=== PATIENT | female | born 1970 | race Caucasian/White ===

== ENCOUNTER → 2016-09-28 | Day surgery (SDC) | payer BC ==
[2016-09-21 14:48] VITALS: Ht 157.5 cm; Wt 69.1 kg
[~2016-09-28] VITALS: Ht 157.5 cm; Wt 69.1 kg
[~2016-09-28] MED LIST: ATROPINE SULFATE 0.1 MG/ML 5ML SYR IV PRN; CALC500C70 PO; EpHEDrine SULFATE INJ 50 MG/ML AMP IV PRN; FLAX12003 PO; LIDOCAINE HCL 2% 2 ML VIAL (20MG/ML) ONE; MULT-506 PO; OMEG10007 PO; PANT40TA PO; PROPOFOL IV EMULSION 10 MG/ML 20 ML VIAL IV ONE; RANI150T3 PO; SENNTAB23 PO; SODIUM CHLORIDE 0.9% 500ML 500 ML IV ONE; [UNRECOGNIZED DRUG - OTHER] PO
--- NOTE | 2016-09-28 08:34 | Endo History and Physical ---
History & Physical Date of Service: Sep 28, 2016. Chief Complaint: Crohn's disease Referring Physician: Yuliya Dillard History of Present Illness 46 yo CF who presents for colonoscopy secondary to Crohn's Disease. Past Surgical History Hx Cardiac Surgery: No Hx Internal Defibrillator: No Hx Pacemaker: No Hx Abdominal Surgery: Yes (TOTAL HYSTERECTOMY 1 OVARY (11/2001); X 2, GB SURG) Hx Post-Op Nausea and Vomiting: Yes (+N/V WITH ANESTHESIA. DENIES ANY OTHER COMPLICATIONS WITH ANESTHESIA.) Hx Cancer Surgery: No Hx Thoracic Surgery: No Hx Orthopedic: No Hx Urinary Tract Surgery: No Family History IBD Social History Smoking Status: Never Smoker Hx Substance Use: No Hx Alcohol Use: No Allergies Coded Allergies: NO KNOWN DRUG ALLERGIES (Unverified Allergy, Unknown, NONE, 09/28/16) Current Medications Reported Home Medications Medications Dose Route/Sig Max Daily Dose Days Date Category [Amata] 1 Tab PO BID 09/21/16 Reported Multivitamin (Multivitamins) Tab 1 Tab PO QAM 09/21/16 Reported Stool Softener (Sennosides-Docusate Sodium) 1 Tab Tab 1 Tab PO HS 09/21/16 Reported Flaxseed Oil (Flaxseed (Linseed)) 1 Cap Cap 1 Tab PO BID 09/21/16 Reported Protonix (Pantoprazole Sodium) 40 Mg Tab 40 Mg PO QAM 09/21/16 Reported Os-Jose 500 Plus D (Calcium/Vitamin D) Tab 1 Tab PO QAM 12/15/12 Reported Zantac (Ranitidine HCl) 150 Mg Tab 150 Mg PO HS 12/15/12 Reported [place]-3 (Fish Oil) 1 Ea Cap 1 Cap PO BID 07/07/08 Reported Vital Signs Weight (Kilograms): 69.09 Height (Feet): 5 Height (Inches): 2 Date Time Temp Pulse Resp B/P (MAP) Pulse Ox O2 Delivery O2 Flow Rate FiO2 09/28/16 08:12 36.8 82 18 138/98 (111) 99 Room Air Physical Exam General Appearance: WD/WN, no apparent distress Respiratory/Chest: Auscultation: breath sounds normal Cardiovascular: Heart Auscultation: RRR Abdomen: Bowel Sounds: normal Inspection & Palpation: soft, non-distended, no tenderness, guarding & rebound Assessment and Plan Assessment: 46 yo CF who presents for colonoscopy secondary to Crohn's Disease. Plan: Proceed with colonoscopy.
--- NOTE | 2016-09-28 08:58 | Discharge Instructions ---
Endoscopy Patient Instructions Date / Procedure(s) Performed Sep 28, 2016. Colonoscopy Allergy Information Coded Allergies: NO KNOWN DRUG ALLERGIES (Unverified Allergy, Unknown, NONE, 09/28/16) Discharge Date / Findings Sep 28, 2016. Random colon biopsies Internal hemorrhoids Medication Instructions Stopped Medication(s): Fish oil stopped 09/17/16 Flaxseed stopped 09/17/16 OK to resume all medications today as prescribed Medications Dose Route/Sig Max Daily Dose Days Date Category [Amata] 1 Tab PO BID 09/21/16 Reported Multivitamin (Multivitamins) Tab 1 Tab PO QAM 09/21/16 Reported Stool Softener (Sennosides-Docusate Sodium) 1 Tab Tab 1 Tab PO HS 09/21/16 Reported Flaxseed Oil (Flaxseed (Linseed)) 1 Cap Cap 1 Tab PO BID 09/21/16 Reported Protonix (Pantoprazole Sodium) 40 Mg Tab 40 Mg PO QAM 09/21/16 Reported Os-Jose 500 Plus D (Calcium/Vitamin D) Tab 1 Tab PO QAM 12/15/12 Reported Zantac (Ranitidine HCl) 150 Mg Tab 150 Mg PO HS 12/15/12 Reported [place]-3 (Fish Oil) 1 Ea Cap 1 Cap PO BID 07/07/08 Reported Provider Instructions Activity Restrictions - No exercising or heavy lifting for 24 hours. - Do not drink alcohol the day of the procedure. - Do not drive a car or operate machinery until the day after the procedure. - Do not make any important decisions or sign important papers in 24 hours after the procedure. Following Day: - Return to full activity which may include returning to work/school. Diet Start your diet with liquids and light foods (jello, soup, juice, toast). Then eat your usual diet if not nauseated. Treatment For Common After Affects For mild abdominal pain, bloating, or excessive gas: - Rest - Eat lightly - Lie on right side Follow-Up Information Follow-up with Yuliya Dillard as scheduled Anesthesia Information What You Should Know You have had a procedure that required some medicine to reduce anxiety and discomfort. This treatment is called moderate sedation. After receiving the treatment, you may be sleepy, but you will be able to breathe on your own. The effects of the treatment may last for several hours. Follow these instructions along with Activity/Diet recommendations noted above: * Do NOT do anything where dizziness or clumsiness would be dangerous. * Rest quietly at home today, then you can be up and about tomorrow. * Have a responsible person stay with you the rest of today. * You may have had an I.V. today. If so, you may take the dressing off later today. Recommendations Call your doctor if: * Trouble breathing * Continuous vomiting for more than 24 hours * Temperature above 101 degrees * Severe abdominal pain or bloating * Pain not relieved by pain medicine ordered * There is increased drainage or redness from any incision * A large amount of rectal bleeding greater than 2-3 tablespoons. (If you had a polyp/s removed or have hemorrhoids, a small amount of blood - from the rectum is to be expected.) * You have any unanswered questions or concerns. IN THE EVENT OF A SERIOUS EMERGENCY, GO TO THE NEAREST EMERGENCY ROOM Your discharge instructions were prepared by provider Christian Meeks. Patient Instructions Signature Page Odalys Pryor Patient (or Guardian) Signature/Date: I have read and understand the instructions given to me by my caregivers. Caregiver/RN/Doctor Signature/Date: The above-named patient and/or guardian has received patient instructions on this date. + Original Patient Signature Page (only) stays with chart. Please make copy for patient.
--- NOTE | 2016-09-28 09:12 | Anesthesiology Progress Note ---
Anesthesia Post Op Note Date & Time Sep 28, 2016 at 09:12 Vital Signs Pain Intensity: 0 Vital Signs Past 12 Hours Date Time Temp Pulse Resp B/P (MAP) Pulse Ox O2 Delivery O2 Flow Rate FiO2 09/28/16 08:56 91 18 99/64 (76) 100 Room Air 09/28/16 08:12 36.8 82 18 138/98 (111) 99 Room Air Notes Mental Status: alert / awake / arousable, participated in evaluation Pt Amnestic to Procedure: Yes Nausea / Vomiting: adequately controlled Pain: adequately controlled Airway Patency, RR, SpO2: stable & adequate BP & HR: stable & adequate Hydration State: stable & adequate Anesthetic Complications: no major complications apparent
--- NOTE | 2016-09-28 09:52 | GI REPORT ---
Procedure Date: 09/28/2016 8:28 AM Procedure: Colonoscopy Indications: Suspected Crohn's disease Medicines: Monitored Anesthesia Care Complications: No immediate complications. Estimated Blood Loss: Estimated blood loss: none. Procedure: Pre-Anesthesia Assessment: - Prior to the procedure, a History and Physical was performed, and patient medications and allergies were reviewed. The patient's tolerance of previous anesthesia was also reviewed. The risks and benefits of the procedure and the sedation options and risks were discussed with the patient. All questions were answered, and informed consent was obtained. Prior Anticoagulants: The patient has taken no previous anticoagulant or antiplatelet agents. ASA Grade Assessment: II - A patient with mild systemic disease. After reviewing the risks and benefits, the patient was deemed in satisfactory condition to undergo the procedure. After I obtained informed consent, the scope was passed under direct vision. Throughout the procedure, the patient's blood pressure, pulse, and oxygen saturations were monitored continuously. The Scope was introduced through the anus and advanced to the terminal ileum. The colonoscopy was performed without difficulty. The patient tolerated the procedure well. The quality of the bowel preparation was good. The terminal ileum, ileocecal valve, appendiceal orifice, and rectum were photographed. Findings: Non-bleeding internal hemorrhoids were found during retroflexion. The hemorrhoids were small. Several random biopsies were obtained with cold forceps for histology in the entire colon. Impression: - Non-bleeding internal hemorrhoids. - Several random biopsies were obtained in the entire colon. Recommendation: - Resume previous diet. - Continue present medications. - Repeat colonoscopy for surveillance based on pathology results. - Return to primary care physician as previously scheduled. Christian Meeks, 09/28/2016 9:06:04 AM This report has been signed electronically. Note Initiated On: 09/28/2016 8:28 AM I attest to the content of the Intraoperative Record and orders documented therein, exceptions below
[2016-09-29 09:33] VITALS: BP 126/83; PULSE 76; O2SAT 99
== END | disposition home or self-care (01) ==
LOC: C.GI 07:38
PROVIDERS: ATTEND Internal Medicine
DX: K50.90 Crohn's disease, unspecified, without complications (principal); K64.8 Other hemorrhoids; Z90.710 Acquired absence of both cervix and uterus; Z68.28 Body mass index [BMI] 28.0-28.9, adult; Z90.49 Acquired absence of other specified parts of digestive tract

== ENCOUNTER → 2016-11-03 | Day surgery (SDC) | payer BC ==
[2016-10-26 07:51] VITALS: BMI 28.0
[~2016-11-03] VITALS: Ht 157.5 cm; Wt 69.1 kg
[~2016-11-03] MED LIST changes: -ATROPINE SULFATE 0.1 MG/ML 5ML SYR IV PRN; -EpHEDrine SULFATE INJ 50 MG/ML AMP IV PRN; +FENTANYL CITRATE INJ 50 MCG/1 ML 2 ML VIAL ONE; +MIDAZOLAM HCL 1 MG/ML 2ML VIAL ONE; -SODIUM CHLORIDE 0.9% 500ML 500 ML IV ONE
[2016-11-03 13:46] VITALS: Ht 157.5 cm; Wt 69.1 kg
--- NOTE | 2016-11-03 14:02 | Endo History and Physical ---
History & Physical Date of Service: Nov 03, 2016. Chief Complaint: reflux Referring Physician: Dr. Yuliya Dillard History of Present Illness 46 yo CF who presents for EGD secondary to GERD. Past Surgical History Hx Cardiac Surgery: No Hx Internal Defibrillator: No Hx Pacemaker: No Hx Abdominal Surgery: Yes (TOTAL HYSTERECTOMY 1 OVARY (11/2001); X 2, GB SURG) Hx of Implantable Prosthesis: No Hx Post-Op Nausea and Vomiting: Yes Hx Cancer Surgery: No Hx Thoracic Surgery: No Hx Orthopedic: No Hx Urinary Tract Surgery: No Family History IBD Social History Smoking Status: Never Smoker Hx Substance Use: No Hx Alcohol Use: No Allergies Coded Allergies: NO KNOWN DRUG ALLERGIES (Unverified Allergy, Unknown, NONE, 11/03/16) Current Medications Reported Home Medications Medications Dose Route/Sig Max Daily Dose Days Date Category [Amata] 1 Tab PO BID 09/21/16 Reported Multivitamin (Multivitamins) Tab 1 Tab PO QAM 09/21/16 Reported Stool Softener (Sennosides-Docusate Sodium) 1 Tab Tab 1 Tab PO HS 09/21/16 Reported Flaxseed Oil (Flaxseed (Linseed)) 1 Cap Cap 1 Tab PO BID 09/21/16 Reported Protonix (Pantoprazole Sodium) 40 Mg Tab 40 Mg PO QAM 09/21/16 Reported Os-Jose 500 Plus D (Calcium/Vitamin D) Tab 1 Tab PO QAM 12/15/12 Reported Zantac (Ranitidine HCl) 150 Mg Tab 150 Mg PO HS 12/15/12 Reported [place]-3 (Fish Oil) 1 Ea Cap 1 Cap PO BID 07/07/08 Reported Vital Signs Weight (Kilograms): 69.09 Height (Feet): 5 Height (Inches): 2 Date Time Temp Pulse Resp B/P (MAP) Pulse Ox O2 Delivery O2 Flow Rate FiO2 11/03/16 13:55 36.1 80 18 133/81 (98) 96 Room Air Physical Exam General Appearance: WD/WN, no apparent distress Respiratory/Chest: Auscultation: breath sounds normal Cardiovascular: Heart Auscultation: RRR Abdomen: Bowel Sounds: normal Inspection & Palpation: soft, non-distended, no tenderness, guarding & rebound Assessment and Plan Assessment: 46 yo CF who presents for EGD secondary to GERD. Plan: Proceed with EGD.
--- NOTE | 2016-11-03 15:01 | Anesthesiology Progress Note ---
Anesthesia Post Op Note Date & Time Nov 03, 2016 at 15:01 Vital Signs Pain Intensity: 0 Vital Signs Past 12 Hours Date Time Temp Pulse Resp B/P (MAP) Pulse Ox O2 Delivery O2 Flow Rate FiO2 11/03/16 14:54 95 18 115/78 (90) 98 Room Air 11/03/16 13:55 36.1 80 18 133/81 (98) 96 Room Air Notes Mental Status: alert / awake / arousable, participated in evaluation Pt Amnestic to Procedure: Yes Nausea / Vomiting: adequately controlled Pain: adequately controlled Airway Patency, RR, SpO2: stable & adequate BP & HR: stable & adequate Hydration State: stable & adequate Anesthetic Complications: no major complications apparent
--- NOTE | 2016-11-03 15:07 | Discharge Instructions ---
Endoscopy Patient Instructions Date / Procedure(s) Performed Nov 03, 2016. EGD Allergy Information Coded Allergies: NO KNOWN DRUG ALLERGIES (Unverified Allergy, Unknown, NONE, 11/03/16) Discharge Date / Findings Nov 03, 2016. Gastric ulcer with bleeding s/p Heater probe therapy Medication Instructions OK to resume all medications today as prescribed Reported Home Medications Medications Dose Route/Sig Max Daily Dose Days Date Category [Amata] 1 Tab PO BID 09/21/16 Reported Multivitamin (Multivitamins) Tab 1 Tab PO QAM 09/21/16 Reported Stool Softener (Sennosides-Docusate Sodium) 1 Tab Tab 1 Tab PO HS 09/21/16 Reported Flaxseed Oil (Flaxseed (Linseed)) 1 Cap Cap 1 Tab PO BID 09/21/16 Reported Protonix (Pantoprazole Sodium) 40 Mg Tab 40 Mg PO QAM 09/21/16 Reported Os-Jose 500 Plus D (Calcium/Vitamin D) Tab 1 Tab PO QAM 12/15/12 Reported Zantac (Ranitidine HCl) 150 Mg Tab 150 Mg PO HS 12/15/12 Reported [place]-3 (Fish Oil) 1 Ea Cap 1 Cap PO BID 07/07/08 Reported Provider Instructions Activity Restrictions - No exercising or heavy lifting for 24 hours. - Do not drink alcohol the day of the procedure. - Do not drive a car or operate machinery until the day after the procedure. - Do not make any important decisions or sign important papers in 24 hours after the procedure. Following Day: - Return to full activity which may include returning to work/school. Diet Start your diet with liquids and light foods (jello, soup, juice, toast). Then eat your usual diet if not nauseated. Treatment For Common After Affects For mild abdominal pain, bloating, or excessive gas: - Rest - Eat lightly - Lie on right side Follow-Up Information Follow-up with Dr. Yuliya Dillard as scheduled Anesthesia Information What You Should Know You have had a procedure that required some medicine to reduce anxiety and discomfort. This treatment is called moderate sedation. After receiving the treatment, you may be sleepy, but you will be able to breathe on your own. The effects of the treatment may last for several hours. Follow these instructions along with Activity/Diet recommendations noted above: * Do NOT do anything where dizziness or clumsiness would be dangerous. * Rest quietly at home today, then you can be up and about tomorrow. * Have a responsible person stay with you the rest of today. * You may have had an I.V. today. If so, you may take the dressing off later today. Recommendations Call your doctor if: * Trouble breathing * Continuous vomiting for more than 24 hours * Temperature above 101 degrees * Severe abdominal pain or bloating * Pain not relieved by pain medicine ordered * There is increased drainage or redness from any incision * A large amount of rectal bleeding greater than 2-3 tablespoons. (If you had a polyp/s removed or have hemorrhoids, a small amount of blood - from the rectum is to be expected.) * You have any unanswered questions or concerns. IN THE EVENT OF A SERIOUS EMERGENCY, GO TO THE NEAREST EMERGENCY ROOM Your discharge instructions were prepared by provider Christian Meeks. Patient Instructions Signature Page Odalys Pryor Patient (or Guardian) Signature/Date: I have read and understand the instructions given to me by my caregivers. Caregiver/RN/Doctor Signature/Date: The above-named patient and/or guardian has received patient instructions on this date. + Original Patient Signature Page (only) stays with chart. Please make copy for patient.
[2016-11-03 15:25] VITALS: BP 116/90; PULSE 69; O2SAT 95
--- NOTE | 2016-11-03 15:25 | GI REPORT ---
Procedure Date: 11/03/2016 2:34 PM Procedure: Upper GI endoscopy Indications: Epigastric abdominal pain Medicines: Monitored Anesthesia Care Complications: No immediate complications. Estimated Blood Loss: Estimated blood loss: none. Procedure: Pre-Anesthesia Assessment: - Prior to the procedure, a History and Physical was performed, and patient medications and allergies were reviewed. The patient's tolerance of previous anesthesia was also reviewed. The risks and benefits of the procedure and the sedation options and risks were discussed with the patient. All questions were answered, and informed consent was obtained. Prior Anticoagulants: The patient has taken no previous anticoagulant or antiplatelet agents. ASA Grade Assessment: II - A patient with mild systemic disease. After reviewing the risks and benefits, the patient was deemed in satisfactory condition to undergo the procedure. After obtaining informed consent, the endoscope was passed under direct vision. Throughout the procedure, the patient's blood pressure, pulse, and oxygen saturations were monitored continuously. The scope was introduced through the mouth, and advanced to the second part of duodenum. The upper GI endoscopy was accomplished without difficulty. The patient tolerated the procedure well. Findings: The esophagus was normal. One oozing cratered gastric ulcer with a visible vessel was found in the gastric antrum. The lesion was 8 mm in largest dimension. Fulguration to ablate the lesion by heater probe was successful. The examined duodenum was normal. Impression: - Normal esophagus. - Oozing gastric ulcer with a visible vessel. Treated with a heater probe. - Normal examined duodenum. - No specimens collected. Recommendation: - Resume previous diet. - Continue present medications. - Return to GI office as previously scheduled. Christian Meeks, DO 11/03/2016 3:25:03 PM This report has been signed electronically. Note Initiated On: 11/03/2016 2:34 PM I attest to the content of the Intraoperative Record and orders documented therein, exceptions below
== END | disposition home or self-care (01) ==
LOC: C.GI 13:16
PROVIDERS: ATTEND Internal Medicine
DX: R10.13 Epigastric pain (principal); K21.9 Gastro-esophageal reflux disease without esophagitis; Z90.710 Acquired absence of both cervix and uterus; K50.90 Crohn's disease, unspecified, without complications; M19.90 Unspecified osteoarthritis, unspecified site; Z86.69 Personal history of other diseases of the nervous system and sense organs; Z87.442 Personal history of urinary calculi

== ENCOUNTER → 2016-11-05 | Outpatient (CLI) | payer BC ==
[~2016-11-05] MED LIST changes: -FENTANYL CITRATE INJ 50 MCG/1 ML 2 ML VIAL ONE; -LIDOCAINE HCL 2% 2 ML VIAL (20MG/ML) ONE; -MIDAZOLAM HCL 1 MG/ML 2ML VIAL ONE; -PROPOFOL IV EMULSION 10 MG/ML 20 ML VIAL IV ONE
--- NOTE | 2016-11-05 08:53 | DIAGNOSTIC IMAGING REPORT ---
RIGHT KNEE 4 VIEWS; LEFT KNEE 4 VIEWS CLINICAL HISTORY: Chronic bilateral knee pain. FINDINGS: An AP standing view of both knees, a tunnel view of both knees, a sunrise view of both knees, with lateral views of the right and left knee are obtained. No prior studies are available for comparison at the time of dictation. The skeletal structures are well mineralized. No fracture is seen. Right knee: There is only minimal degenerative joint space narrowing. No osteochondral defect is seen on the tunnel view. There is mild beaking of the tibial spine. No joint effusion is seen. The overlying soft tissues are within normal limits. Left knee: There is only minimal degenerative joint space narrowing. No osteochondral defect is seen on the tunnel image. No joint effusion is identified. The overlying soft tissues are within normal limits. IMPRESSION: No acute bony abnormality is seen in either knee. Electronically signed by: Ritchie Field M.D. 11/05/2016 8:51 AM Dictated Date/Time: 11/05/2016 8:42 AM
== END | disposition home or self-care (01) ==
LOC: C.RDSM 11:46
PROVIDERS: ATTEND Internal Medicine
DX: M25.561 Pain in right knee (principal); M25.562 Pain in left knee

== ENCOUNTER → 2016-12-28 | Day surgery (SDC) | payer BC ==
[2016-12-10 09:46] VITALS: Ht 157.5 cm; Wt 69.1 kg
[~2016-12-28] VITALS: Ht 157.5 cm; Wt 69.1 kg
[~2016-12-28] MED LIST changes: +BENZOCAIN/TETRACA/BUTAM SPRAY 200 APPLN/20 GM SPRY ONE; +LIDOCAINE HCL 2% 2 ML VIAL (20MG/ML) ONE; +PROPOFOL IV EMULSION 10 MG/ML 20 ML VIAL IV ONE; +SODIUM CHLORIDE 0.9% 500ML 500 ML IV ONE
--- NOTE | 2016-12-28 11:45 | Endo History and Physical ---
History & Physical Date of Service: Dec 28, 2016. Chief Complaint: Acute gastric ulcer Referring Physician: Dr. Yuliya Dillard History of Present Illness 46 yo CF who presents for EGD secondary to gastric ulcer. Past Surgical History Hx Cardiac Surgery: No Hx Internal Defibrillator: No Hx Pacemaker: No Hx Abdominal Surgery: Yes (TOTAL HYSTERECTOMY 1 OVARY (11/2001); X 2, GB SURG) Hx of Implantable Prosthesis: No Hx Post-Op Nausea and Vomiting: Yes Hx Cancer Surgery: No Hx Thoracic Surgery: No Hx Orthopedic: No Hx Urinary Tract Surgery: No Family History IBD Social History Smoking Status: Never Smoker Hx Substance Use: No Hx Alcohol Use: No Allergies Coded Allergies: NO KNOWN DRUG ALLERGIES (Verified Allergy, Unknown, NONE, 12/28/16) Current Medications Reported Home Medications Medications Dose Route/Sig Max Daily Dose Days Date Category [Amata] 1 Tab PO BID 09/21/16 Reported Multivitamin (Multivitamins) Tab 1 Tab PO QAM 09/21/16 Reported Stool Softener (Sennosides-Docusate Sodium) 1 Tab Tab 1 Tab PO HS 09/21/16 Reported Flaxseed Oil (Flaxseed (Linseed)) 1 Cap Cap 1 Tab PO BID 09/21/16 Reported Protonix (Pantoprazole Sodium) 40 Mg Tab 40 Mg PO BID 09/21/16 Reported Os-Jose 500 Plus D (Calcium/Vitamin D) Tab 1 Tab PO QAM 12/15/12 Reported Zantac (Ranitidine HCl) 150 Mg Tab 150 Mg PO HS 12/15/12 Reported [place]-3 (Fish Oil) 1 Ea Cap 1 Cap PO BID 07/07/08 Reported Vital Signs Weight (Kilograms): 69.09 Height (Feet): 5 Height (Inches): 2 Date Time Temp Pulse Resp B/P (MAP) Pulse Ox O2 Delivery O2 Flow Rate FiO2 12/28/16 11:34 36.5 76 16 134/78 (96) 99 Room Air Physical Exam General Appearance: WD/WN, no apparent distress Respiratory/Chest: Auscultation: breath sounds normal Cardiovascular: Heart Auscultation: RRR Abdomen: Bowel Sounds: normal Inspection & Palpation: soft, non-distended, no tenderness, guarding & rebound Assessment and Plan Assessment: 46 yo CF who presents for EGD secondary to gastric ulcer. Plan: Proceed with EGD.
--- NOTE | 2016-12-28 12:24 | GI REPORT ---
Procedure Date: 12/28/2016 11:39 AM Procedure: Upper GI endoscopy Indications: Follow-up of acute gastric ulcer Medicines: Monitored Anesthesia Care Complications: No immediate complications. Estimated Blood Loss: Estimated blood loss: none. Procedure: Pre-Anesthesia Assessment: - Prior to the procedure, a History and Physical was performed, and patient medications and allergies were reviewed. The patient's tolerance of previous anesthesia was also reviewed. The risks and benefits of the procedure and the sedation options and risks were discussed with the patient. All questions were answered, and informed consent was obtained. Prior Anticoagulants: The patient has taken no previous anticoagulant or antiplatelet agents. ASA Grade Assessment: II - A patient with mild systemic disease. After reviewing the risks and benefits, the patient was deemed in satisfactory condition to undergo the procedure. After obtaining informed consent, the endoscope was passed under direct vision. Throughout the procedure, the patient's blood pressure, pulse, and oxygen saturations were monitored continuously. The scope was introduced through the mouth, and advanced to the second part of duodenum. The upper GI endoscopy was accomplished without difficulty. The patient tolerated the procedure well. Findings: The esophagus was normal. One non-bleeding cratered gastric ulcer with no stigmata of bleeding was found in the gastric antrum. The lesion was 3 mm in largest dimension. The examined duodenum was normal. Impression: - Normal esophagus. - Non-bleeding gastric ulcer with no stigmata of bleeding. - Normal examined duodenum. - No specimens collected. Recommendation: - Resume previous diet. - Continue present medications. - Use sucralfate tablets 1 gram PO QID for 10 days. - Return to GI office as previously scheduled. Christian Meeks DO 12/28/2016 12:24:07 PM This report has been signed electronically. Note Initiated On: 12/28/2016 11:39 AM I attest to the content of the Intraoperative Record and orders documented therein, exceptions below
--- NOTE | 2016-12-28 12:26 | Discharge Instructions ---
Endoscopy Patient Instructions Date / Procedure(s) Performed Dec 28, 2016. EGD Allergy Information Coded Allergies: NO KNOWN DRUG ALLERGIES (Verified Allergy, Unknown, NONE, 12/28/16) Discharge Date / Findings Dec 28, 2016. Gastric ulcer healing Medication Instructions 1) Start Carafate 1g by mouth four times daily prior to each meal and at bedtime for 10 days. 2) OK to resume all medications today as prescribed Reported Home Medications Medications Dose Route/Sig Max Daily Dose Days Date Category [Amata] 1 Tab PO BID 09/21/16 Reported Multivitamin (Multivitamins) Tab 1 Tab PO QAM 09/21/16 Reported Stool Softener (Sennosides-Docusate Sodium) 1 Tab Tab 1 Tab PO HS 09/21/16 Reported Flaxseed Oil (Flaxseed (Linseed)) 1 Cap Cap 1 Tab PO BID 09/21/16 Reported Protonix (Pantoprazole Sodium) 40 Mg Tab 40 Mg PO BID 09/21/16 Reported Os-Jose 500 Plus D (Calcium/Vitamin D) Tab 1 Tab PO QAM 12/15/12 Reported Zantac (Ranitidine HCl) 150 Mg Tab 150 Mg PO HS 12/15/12 Reported Cobb-3 (Fish Oil) 1 Ea Cap 1 Cap PO BID 07/07/08 Reported Provider Instructions Activity Restrictions - No exercising or heavy lifting for 24 hours. - Do not drink alcohol the day of the procedure. - Do not drive a car or operate machinery until the day after the procedure. - Do not make any important decisions or sign important papers in 24 hours after the procedure. Following Day: - Return to full activity which may include returning to work/school. Diet Start your diet with liquids and light foods (jello, soup, juice, toast). Then eat your usual diet if not nauseated. Treatment For Common After Affects For mild abdominal pain, bloating, or excessive gas: - Rest - Eat lightly - Lie on right side Follow-Up Information Follow-up with Dr. Yuliya Dillard as scheduled Anesthesia Information What You Should Know You have had a procedure that required some medicine to reduce anxiety and discomfort. This treatment is called moderate sedation. After receiving the treatment, you may be sleepy, but you will be able to breathe on your own. The effects of the treatment may last for several hours. Follow these instructions along with Activity/Diet recommendations noted above: * Do NOT do anything where dizziness or clumsiness would be dangerous. * Rest quietly at home today, then you can be up and about tomorrow. * Have a responsible person stay with you the rest of today. * You may have had an I.V. today. If so, you may take the dressing off later today. Recommendations Call your doctor if: * Trouble breathing * Continuous vomiting for more than 24 hours * Temperature above 101 degrees * Severe abdominal pain or bloating * Pain not relieved by pain medicine ordered * There is increased drainage or redness from any incision * A large amount of rectal bleeding greater than 2-3 tablespoons. (If you had a polyp/s removed or have hemorrhoids, a small amount of blood - from the rectum is to be expected.) * You have any unanswered questions or concerns. IN THE EVENT OF A SERIOUS EMERGENCY, GO TO THE NEAREST EMERGENCY ROOM Your discharge instructions were prepared by provider Christian Meeks. Patient Instructions Signature Page Odalys Pryor Patient (or Guardian) Signature/Date: I have read and understand the instructions given to me by my caregivers. Caregiver/RN/Doctor Signature/Date: The above-named patient and/or guardian has received patient instructions on this date. + Original Patient Signature Page (only) stays with chart. Please make copy for patient.
[2016-12-28 13:00] VITALS: BP 135/78; PULSE 76; O2SAT 99
--- NOTE | 2016-12-28 13:16 | Anesthesiology Progress Note ---
Anesthesia Post Op Note Date & Time Dec 28, 2016 at 13:16 Vital Signs Pain Intensity: 0 Vital Signs Past 12 Hours Date Time Temp Pulse Resp B/P (MAP) Pulse Ox O2 Delivery O2 Flow Rate FiO2 12/28/16 13:00 76 18 135/78 (97) 99 Room Air 12/28/16 12:41 84 18 135/85 (102) 99 Room Air 12/28/16 12:26 98 16 122/87 (99) 95 Room Air 12/28/16 11:34 36.5 76 16 134/78 (96) 99 Room Air Notes Mental Status: alert / awake / arousable, participated in evaluation Pt Amnestic to Procedure: Yes Nausea / Vomiting: adequately controlled Pain: adequately controlled Airway Patency, RR, SpO2: stable & adequate BP & HR: stable & adequate Hydration State: stable & adequate Anesthetic Complications: no major complications apparent
== END | disposition home or self-care (01) ==
LOC: C.GI 11:21
PROVIDERS: ATTEND Internal Medicine
DX: K25.3 Acute gastric ulcer without hemorrhage or perforation (principal); Z83.79 Family history of other diseases of the digestive system; Z79.899 Other long term (current) drug therapy

== ENCOUNTER → 2017-01-05 | Outpatient (CLI) | payer BC ==
[~2017-01-05] MED LIST changes: -BENZOCAIN/TETRACA/BUTAM SPRAY 200 APPLN/20 GM SPRY ONE; -LIDOCAINE HCL 2% 2 ML VIAL (20MG/ML) ONE; -PROPOFOL IV EMULSION 10 MG/ML 20 ML VIAL IV ONE; -SODIUM CHLORIDE 0.9% 500ML 500 ML IV ONE
--- NOTE | 2017-01-05 15:29 | MAMMOGRAPHY REPORT ---
BILATERAL DIGITAL SCREENING MAMMOGRAM TOMOSYNTHESIS WITH CAD: 01/05/2017 CLINICAL HISTORY: Routine screening. Patient has no complaints. TECHNIQUE: Breast tomosynthesis in addition to standard 2D mammography was performed. Current study was also evaluated with a Computer Aided Detection (CAD) system. COMPARISON: Comparison is made to exams dated: 01/05/2016 mammogram, 01/01/2014 mammogram, 01/02/2015 m ammogram, 12/29/2012 mammogram, and 12/29/2011 mammogram - [facility]. BREAST COMPOSITION: The tissue of both breasts is heterogeneously dense, which may obscure small mas ses. FINDINGS: No suspicious masses, calcifications, or areas of architectural distortion are noted in ei ther breast. There has been no significant interval change compared to prior exams. IMPRESSION: ACR BI-RADS CATEGORY 1: NEGATIVE There is no mammographic evidence of malignancy. A 1 year screening mammogram is recommended. The pa tient will receive written notification of the results. Approximately 10% of breast cancers are not detected with mammography. A negative mammographic report should not delay biopsy if a clinically suggestive mass is present. Beronica Wasserman M.D. /:01/05/2017 12:59:50 [place]: Sun GALLARDO(Joni)(M), [facility] letter sent: Normal 1/2 BI-RADS Code: ACR BI-RADS Category 1: Negative
== END | disposition home or self-care (01) ==
LOC: C.MAMM 11:47
PROVIDERS: ATTEND Obstetrics & Gynecology
DX: Z12.31 Encounter for screening mammogram for malignant neoplasm of breast (principal)

== ENCOUNTER → 2017-06-16 | Outpatient (CLI) | payer OTHER ==
[2017-06-16 19:22] LABS: BLOOD UREA NITROGEN 14 mg/dl (7-18); CALCIUM 8.3 mg/dl (8.5-10.1); CARBON DIOXIDE 27 mmol/L (21-32); POTASSIUM 3.6 mmol/L (3.5-5.1); SODIUM 139 mmol/L (136-145)
[2017-06-16 20:12] LABS: CREATININE 0.59 mg/dl (0.60-1.20); GLUCOSE 93 mg/dl (70-99)
== END | disposition home or self-care (01) ==
LOC: C.LABSPEC 18:02
PROVIDERS: ATTEND Internal Medicine
DX: R53.83 Other fatigue (principal); I10 Essential (primary) hypertension

== ENCOUNTER → 2017-07-22 | Outpatient (CLI) | payer OTHER | END | disposition home or self-care (01) | LOC: C.PAPS 15:56 | PROVIDERS: ATTEND Internal Medicine | DX: Z01.419 Encounter for gynecological examination (general) (routine) without abnormal findings (principal) ==

== ENCOUNTER → 2017-07-25 | Outpatient (CLI) | payer OTHER | END | disposition home or self-care (01) | LOC: C.LAB1850 07:02 | PROVIDERS: ATTEND Obstetrics & Gynecology | DX: R53.83 Other fatigue (principal); R63.5 Abnormal weight gain ==

== ENCOUNTER 2023-04-22 08:14 | Inpatient (IN) ==
[2023-04-22] MEDS ORDERED: ONDANSETRON INJ 2 MG/ML 2 ML VIAL IV STA (08:26)
[2023-04-22] MEDS ORDERED: SODIUM CHLORIDE 0.9% 1,000 ML IV STA (08:26)
[2023-04-22] MEDS ORDERED: cefTRIAXone SODIUM 2,000 MG/50 ML BAG IV STA (08:26)
--- NOTE | 2023-04-22 08:40 | Emergency Department Note ---
Impression & Plan Pyelonephritis, Vomiting, Hypokalemia, SIRS (systemic inflammatory response syndrome) ED Provider Note NAME: JOSE G FISHER AGE: 53 SEX: F : 1970 ARRIVES VIA: Walk-In INFORMANT: Patient, ED PROVIDER(S): Ritchie Santos DO CHIEF COMPLAINT: Flank pain HPI: The patient is a 53-year-old female who presented to the emergency department for an evaluation of flank pain. The patient describes right-sided flank pain that began this past Tuesday. She does have a history of kidney stones. She was seen in our facility 2 days ago. The patient had a CAT scan of an outpatient which was read as no acute disease. The patient was started on an antibiotic which she has had continued flank pain nausea and vomiting. She is unable to keep down the antibiotic. She came to the emergency department today because of ongoing symptoms. The patient denies having any headaches. She denies having any chest pain but does have epigastric pain as well. She denies having any lower extremity swelling or pain. ROS: See above HPI for pertinent positives & negatives. A total of 10 systems reviewed and were otherwise negative. PAST MEDICAL HISTORY: See Below PAST SURGICAL HISTORY: See Below FAMILY HISTORY: See Below SOCIAL HISTORY: See Below HOME MEDICATIONS: See Below ALLERGIES: See Below VITALS: See Below PHYSICAL EXAMINATION: GENERAL: The patient is awake and alert. She is very anxious and uncomfortable appearing. EYES: The conjunctivae are clear. The pupils are round and reactive. EARS, NOSE, MOUTH AND THROAT: The nose is without any evidence of any deformity. NECK: The neck is nontender and supple. RESPIRATORY: Normal respiratory effort is noted there is no evidence of wheezing rhonchi or rales CARDIOVASCULAR: Tachycardic and regular heart sounds were noted to auscultation. There is no definite murmur. GASTROINTESTINAL: The abdomen is soft and mildly distended. There is right- sided tenderness to palpation but no guarding or rigidity. BACK: Right CVA tenderness was noted to percussion. MUSCULOSKELETAL/EXTREMITIES: There is no evidence of gross deformity full range of motion is noted in the hips and shoulders. SKIN: There is no obvious evidence of any rash. There are no petechiae, pallor or cyanosis noted. NEUROLOGIC: Patient is awake alert and oriented x3 strength is symmetric patellar reflexes are 2+ bilaterally MEDICAL DECISION MAKING: The patient is a 53-year-old female who presented to the emergency department for flank pain and vomiting. The patient was seen in our facility recently for similar complaints. She did have an outpatient CT of the abdomen and pelvis that showed no acute process but they were looking more for renal colic given the patient's history. The patient was found to have urinary tract infection. She was started on an antibiotic by her primary care physician. She presented to our emergency department for vomiting. She was treated with IV antibiotics but was unable to take the antibiotics when she got home because of continued vomiting. The patient returns today tachycardic. She appears to be much worse. She was treated with IV fluids and IV antibiotics in the emergency department. She was reevaluated multiple times. She continued to be tachycardic despite IV fluid resuscitation. I discussed her condition with the on-call [facility] hospitalist. They have agreed to evaluate the patient in the emergency department for further management and disposition. The patient does appear to have signs of pyelonephritis on CT. Triage Nursing notes reviewed. Prior medical records reviewed Vital Signs: reviewed and remarkable for tachycardia. Differential diagnosis: Renal colic, UTI, appendicitis, diverticulitis, mesenteric ischemia, aortic pathology, infections, inflammatory bowel disease, PUD, biliary pathology, as well as other pathologies. ER treatment provided: See below Diagnostics interpreted by me: ECG: EKG was obtained in the emergency department. My interpretation is sinus tachycardia at 135 bpm. There is no ectopy. Incomplete right bundle branch block pattern was noted. This was compared to a tracing from March 10, 2021. No changes were noted. Cardiac Monitoring: An order was placed for continuous cardiac monitoring. The monitor shows a rate of 128 bpm with sinus tachycardia. Laboratory studies: As stated above and show below. Imaging studies: See below. Radiographic imaging was reviewed by myself Consultation(s): I discussed this case with the on-call [facility] hospitalist. They have agreed to evaluate the patient in the emergency department for further management and disposition. ED COURSE: Procedures: none Critical Care: I have personally spent greater than 45 minutes of critical care time in the direct management of this patient. This includes bedside care, interpretation of diagnostic studies, and testing, discussion with consultants, patient, and family members, and other required patient management activities. This 45 minutes is in excess of all separately billable procedures. Past Med/Surg History Medical History Hypercholesterolemia with LDL greater than 190 mg/dL Overweight (BMI 25.0-29.9) History of seizure last 2020, unsure what type? grand tara--on yamilka--follows with [facility] Neurology Dr. Ridley Hypercholesteremia GERD (gastroesophageal reflux disease) Stomach ulcer Crohn's disease Deafness in left ear Migraines Hypertension Surgical History History of esophagogastroduodenoscopy (EGD) History of colonoscopy S/P endometrial ablation History of tonsillectomy and adenoidectomy History of sinus surgery History of hysterectomy total abdominal hyster History of delivery Family History Father Heart disease Myocardial infarction Hypertension Aunt Crohn's disease Grandmother (Maternal) Cancer Grandfather (Maternal) Myocardial infarction Other No family history of adverse response to anesthesia No family history of bleeding disorder Denies family history of Ovarian cancer Prostate cancer Breast cancer Colorectal cancer Social History Smoking Status: Never smoker Tobacco Type: Cigarettes Second Hand Exposure: No; Do You Dip or Chew Tobacco: No; Hx Alcohol Use: No Hx Substance Use: No Preferred Language: Pakistani Communication Ability: Effective Yarn Spooler Required: No Beliefs That Will Affect Care: None marital status: Current Living Situation: Spouse and Family Current Living Situation Comment: Lives with and daughter current occupational status: employed current occupation: Registration at [employer] Feels Safe at Home: Yes Childhood Exposure to Second-Hand Smoke: No Dental Care, Regularly: Yes Physical Activity Frequency: 5-6 Times per Week Seatbelt Use: always Sunscreen Use: Yes Assistive Devices: None Allergies Allergies Allergy/AdvReac Type Severity Reaction Status Date / Time No Known Allergies Allergy Verified 04/22/23 11:26 Home Meds Home Medications Medication Instructions Recorded Confirmed flaxseed oil 1,000 mg capsule 1,000 mg PO QAM 07/20/19 04/22/23 sennosides 8.6 mg-docusate sodium 1 tab PO QPM 07/20/19 04/22/23 50 mg tablet omega 3-pqr-mpk-fish oil 1,000 mg 1 cap PO QAM 03/10/21 04/22/23 (120 mg-180 mg) capsule (Fish Oil) lisinopril 5 mg tablet See Rx Instructions .Route .COMPLEX 10/29/22 04/22/23 dicyclomine 20 mg tablet 20 mg PO BID PRN ABD PAIN 04/20/23 04/22/23 pantoprazole 40 mg tablet,delayed 40 mg PO BID 04/20/23 04/22/23 release Previous Rx's Medication Instructions Recorded levetiracetam 500 mg tablet 500 mg PO BID #180 tabs 11/30/22 (Keppra) pravastatin 20 mg tablet 20 mg PO QAM #90 tabs 02/21/23 semaglutide (weight loss) 0.25 0.25 - 0.5 mg (0.5 - 1 mL) subcut 02/21/23 mg/0.5 mL subcutaneous pen injector Q7D #2 mL buspirone 7.5 mg tablet 7.5 mg PO TID #270 tabs 02/28/23 lorazepam 0.5 mg tablet 0.25 - 0.5 mg (0.5 - 1 x 0.5 mg) 03/29/23 PO DAILY PRN Anxiety #30 tabs fluoxetine 40 mg capsule 40 mg PO HS #90 caps 04/18/23 nitrofurantoin 100 mg PO Q12H 5 days #10 caps 04/19/23 monohydrate/macrocrystals 100 mg capsule ondansetron HCl 4 mg tablet 4 mg PO TID PRN nausea and 04/20/23 vomiting 5 days #15 tabs Results & Data (ED) Vital Signs Vital Signs - 24 hr 04/22/23 08:14 04/22/23 08:14 04/22/23 08:31 Temperature 36.6 C Temperature Source Oral Pulse Rate 142 H 136 H Pulse Rate [Left Finger] Respiratory Rate 16 16 Blood Pressure 172/101 H Blood Pressure [Right Arm] Blood Pressure Mean 124 Blood Pressure Mean [Right Arm] Blood Pressure Position [Right Arm] Pulse Oximetry 100 Oxygen Delivery Method Sepsis Recent Fever Within 48 Hours No Sepsis New/Unexplained Change in Mental Status N/A Sepsis Action Taken by Nursing No Action Required 04/22/23 10:14 Temperature Temperature Source Pulse Rate Pulse Rate [Left Finger] 127 H Respiratory Rate 23 Blood Pressure Blood Pressure [Right Arm] 158/99 H Blood Pressure Mean Blood Pressure Mean [Right Arm] 118 Blood Pressure Position [Right Arm] Sitting Pulse Oximetry 100 Oxygen Delivery Method Room Air Sepsis Recent Fever Within 48 Hours Sepsis New/Unexplained Change in Mental Status Sepsis Action Taken by Snf Medications Current Medication List: was personally reviewed by me Laboratory Data Attestation: I reviewed the patient's lab results. 04/22/23 10:04 04/22/23 08:54 Lab Results 04/22/23 04/22/23 04/22/23 Range/Units 08:54 08:54 10:04 WBC Cancelled 15.75 H RBC Cancelled 3.88 L Hgb Cancelled 11.1 L Hct Cancelled 32.7 L MCV Cancelled 84.3 MCH Cancelled 28.6 MCHC Cancelled 33.9 RDW Std Deviation Cancelled 46.0 RDW Coeff of Xochilt Cancelled 15.1 H Plt Count Cancelled 144 MPV Cancelled 10.9 Immature Gran % (Auto) Cancelled 1.1 Neut % (Auto) Cancelled 84.2 Lymph % (Auto) Cancelled 2.0 Johnston % (Auto) Cancelled 12.3 Eos % (Auto) Cancelled 0.1 Baso % (Auto) Cancelled 0.3 Neut # (Auto) Cancelled 13.24 H Lymph # (Auto) Cancelled 0.32 L Johnston # (Auto) Cancelled 1.94 H Eos # (Auto) Cancelled 0.02 Baso # (Auto) Cancelled 0.05 Immature Gran # (Auto) Cancelled 0.18 Absolute Nucleated RBC Cancelled Nucleated RBC % (auto) Cancelled Neutrophils % (Manual) Cancelled Band Neutrophils % Cancelled Lymphocytes % (Manual) Cancelled Prolymphocyte % Cancelled Reactive Lymphs % (Man) Cancelled Monocytes % (Manual) Cancelled Eosinophils % (Manual) Cancelled Basophils % (Manual) Cancelled Metamyelocytes % (Man) Cancelled Myelocytes % (Man) Cancelled Promyelocytes % (Man) Cancelled Blast Cells % (Manual) Cancelled Plasma Cell % (Manual) Cancelled Other Cells % Cancelled Nucleated RBC % Cancelled Neutrophils # (Manual) Cancelled Band Neutrophils # Cancelled Total Absolute Neuts Cancelled Lymphocytes # (Manual) Cancelled Prolymphocyte # Cancelled Reactive Lymphs # Cancelled Total Abs Lymphocytes Cancelled Monocytes # (Manual) Cancelled Eosinophils # (Manual) Cancelled Basophils # (Manual) Cancelled Metamyelocytes # (Man) Cancelled Myelocytes # (Manual) Cancelled Promyelocytes # (Man) Cancelled Blast Cells # (Man) Cancelled Plasma Cell # (Manual) Cancelled Other Cells # Cancelled Nucleated RBCs # (Man) Cancelled Hypersegmented Neuts Cancelled Hyposegmented Neuts Cancelled Hypogranular Neuts Cancelled Large Granular Lymphs Cancelled # Lrg Granular Lymphs Cancelled Hairy Cells Cancelled Smudge Cells Cancelled Toxic Granulation Cancelled Toxic Vacuolation Cancelled Dohle Bodies Cancelled Alana Rods Cancelled Platelet Estimate Cancelled Hypogranular Platelets Cancelled Giant Platelets Cancelled Platelet Satelliting Cancelled RBC Morphology Cancelled Polychromasia Cancelled Hypochromasia Cancelled Poikilocytosis Cancelled Basophilic Stippling Cancelled Anisocytosis Cancelled Microcytosis Cancelled Macrocytosis Cancelled Spherocytes Cancelled Pappenheimer Bodies Cancelled Sickle Cells Cancelled Target Cells Cancelled Tear Drop Cells Cancelled Ovalocytes Cancelled Stomatocytes Cancelled Xiao-Issaqu[place] Bodies Cancelled Echinocytes Cancelled 2+ Acanthocytes (Spur) Cancelled Rouleaux Cancelled RBC Agglutinates Cancelled Schistocytes Cancelled Sezary Cell Cancelled Sodium 138 (136-145) mmol/L Potassium 3.1 L (3.5-5.1) mmol/L Chloride 104 (98-107) mmol/L Carbon Dioxide 22 (21-32) mmol/L Anion Gap 12 H (3-11) BUN 15 (6-23) mg/dl Creatinine 0.90 D (0.6-1.2) mg/dl Est Cr Clr Drug Dosing 63.3 ml/min Est GFR ( Amer) 85.2 ml/min Est GFR (Non-Af Amer) 73.5 ml/min BUN/Creatinine Ratio 16.7 (10-20) Glucose 118 H (70-99(Fasting)) mg/dl Calcium 9.2 (8.6-10.3) mg/dl Total Bilirubin 0.6 (0.2-1.0) mg/dl AST 20 (13-39) U/L ALT 21 (7-52) U/L Alkaline Phosphatase 113 H (34-104) U/L Troponin I High Sens 11.1 Cancelled (0-14) pg/ml Total Protein 6.7 (6.0-8.3) gm/dl Albumin 3.3 L (3.4-5.0) gm/dl Globulin 3.4 (2.5-4.0) gm/dl Albumin/Globulin Ratio 1.0 (0.9-2) Lipase 5 L (11-82) U/L Urine Color Urine Appearance (Clear) Urine pH (4.5-7.5) Ur Specific Tarzan (1.000-1.030) Urine Protein (Negative) Urine Glucose (UA) (Negative) Urine Ketones (Negative) Urine Blood (Negative) Urine Nitrite (Negative) Urine Bilirubin (Negative) Urine Urobilinogen (Negative) Ur Leukocyte Esterase (Negative) Urine WBC (Auto) (0-5) /hpf Urine RBC (Auto) (0-4) /hpf U Hyaline Cast (Auto) (0-5) /lpf U Epithel Cells (Auto) (0-5) /lpf Urine Bacteria (Auto) (Negative) Ur Renal Epithelial Cell Blood Parasites ID Cancelled 04/22/23 Range/Units 11:26 WBC RBC Hgb Hct MCV MCH MCHC RDW Std Deviation RDW Coeff of Xochilt Plt Count MPV Immature Gran % (Auto) Neut % (Auto) Lymph % (Auto) Johnston % (Auto) Eos % (Auto) Baso % (Auto) Neut # (Auto) Lymph # (Auto) Johnston # (Auto) Eos # (Auto) Baso # (Auto) Immature Gran # (Auto) Absolute Nucleated RBC Nucleated RBC % (auto) Neutrophils % (Manual) Band Neutrophils % Lymphocytes % (Manual) Prolymphocyte % Reactive Lymphs % (Man) Monocytes % (Manual) Eosinophils % (Manual) Basophils % (Manual) Metamyelocytes % (Man) Myelocytes % (Man) Promyelocytes % (Man) Blast Cells % (Manual) Plasma Cell % (Manual) Other Cells % Nucleated RBC % Neutrophils # (Manual) Band Neutrophils # Total Absolute Neuts Lymphocytes # (Manual) Prolymphocyte # Reactive Lymphs # Total Abs Lymphocytes Monocytes # (Manual) Eosinophils # (Manual) Basophils # (Manual) Metamyelocytes # (Man) Myelocytes # (Manual) Promyelocytes # (Man) Blast Cells # (Man) Plasma Cell # (Manual) Other Cells # Nucleated RBCs # (Man) Hypersegmented Neuts Hyposegmented Neuts Hypogranular Neuts Large Granular Lymphs # Lrg Granular Lymphs Hairy Cells Smudge Cells Toxic Granulation Toxic Vacuolation Dohle Bodies Alana Rods Platelet Estimate Hypogranular Platelets Giant Platelets Platelet Satelliting RBC Morphology Polychromasia Hypochromasia Poikilocytosis Basophilic Stippling Anisocytosis Microcytosis Macrocytosis Spherocytes Pappenheimer Bodies Sickle Cells Target Cells Tear Drop Cells Ovalocytes Stomatocytes Xiao-Issaqu[place] Bodies Echinocytes Acanthocytes (Spur) Rouleaux RBC Agglutinates Schistocytes Sezary Cell Sodium (136-145) mmol/L Potassium (3.5-5.1) mmol/L Chloride (98-107) mmol/L Carbon Dioxide (21-32) mmol/L Anion Gap (3-11) BUN (6-23) mg/dl Creatinine (0.6-1.2) mg/dl Est Cr Clr Drug Dosing ml/min Est GFR ( Amer) ml/min Est GFR (Non-Af Amer) ml/min BUN/Creatinine Ratio (10-20) Glucose (70-99(Fasting)) mg/dl Calcium (8.6-10.3) mg/dl Total Bilirubin (0.2-1.0) mg/dl AST (13-39) U/L ALT (7-52) U/L Alkaline Phosphatase (34-104) U/L Troponin I High Sens (0-14) pg/ml Total Protein (6.0-8.3) gm/dl Albumin (3.4-5.0) gm/dl Globulin (2.5-4.0) gm/dl Albumin/Globulin Ratio (0.9-2) Lipase (11-82) U/L Urine Color Yellow Urine Appearance Clear (Clear) Urine pH 6.5 (4.5-7.5) Ur Specific Tarzan 1.040 H (1.000-1.030) Urine Protein 1+ H (Negative) Urine Glucose (UA) Negative (Negative) Urine Ketones Trace H (Negative) Urine Blood 2+ H (Negative) Urine Nitrite Negative (Negative) Urine Bilirubin Negative (Negative) Urine Urobilinogen Negative (Negative) Ur Leukocyte Esterase Trace H (Negative) Urine WBC (Auto) >30 H (0-5) /hpf Urine RBC (Auto) 10-30 H (0-4) /hpf U Hyaline Cast (Auto) 1-5 (0-5) /lpf U Epithel Cells (Auto) >30 H (0-5) /lpf Urine Bacteria (Auto) Negative (Negative) Ur Renal Epithelial Cell Not Reportable Blood Parasites ID Administered Medications Ondansetron HCl (Ondansetron Inj 2 Mg/Ml 2 Ml Vial) 4 mg IV Q4H PRN PRN Reason: Nausea Stop: 05/22/23 11:35 Last Admin: 04/22/23 11:53 Dose: 4 mg Documented By: AMIRAH Discontinued Medications Sodium Chloride (Nss) 1,000 mls @ 999 mls/hr IV .Q1H1M STA Stop: 04/22/23 09:26 Last Infusion: 04/22/23 10:09 Dose: Infused Documented By: Admin: 04/22/23 09:08 Dose: 999 mls/hr Documented By: AMIRAH Ceftriaxone Sodium (Rocephin) 2,000 mg in 50 mls @ 100 mls/hr IV NOW STA Stop: 04/22/23 08:55 Last Infusion: 04/22/23 09:45 Dose: Infused Documented By: Admin: 04/22/23 09:15 Dose: 100 mls/hr Documented By: AMIRAH Potassium Chloride (K Frank / Wtr) 10 meq in 100 mls @ 100 mls/hr IV ONE ONE Stop: 04/22/23 11:35 Last Admin: 04/22/23 11:21 Dose: 100 mls/hr Documented By: AMIRAH Sodium Chloride (Nss) 1,000 mls @ 999 mls/hr IV .Q1H1M ONE Stop: 04/22/23 12:17 Last Admin: 04/22/23 11:21 Dose: 999 mls/hr Documented By: AMIRAH Ioversol (Optiray 320 500ml) 88 ml IV ONCE ONE Stop: 04/22/23 10:45 Last Admin: 04/22/23 10:44 Dose: 88 ml Documented By: KOSTAS Morphine Sulfate (Morphine Sulfate 4 Mg/Ml 1 Ml Carp\\Vial) 4 mg IV Q15M PRN PRN Reason: Pain Stop: 05/06/23 08:25 Last Admin: 04/22/23 11:24 Dose: 4 mg Documented By: Admin: 04/22/23 09:09 Dose: 4 mg Documented By: AMIRAH Ondansetron HCl (Ondansetron Inj 2 Mg/Ml 2 Ml Vial) 4 mg IV NOW STA Stop: 04/22/23 08:27 Last Admin: 04/22/23 09:09 Dose: 4 mg Documented By: AMIRAH Imaging Data Attestation: I personally reviewed and interpreted this imaging study as follows: My Impression: CT of the abdomen and pelvis was obtained in the emergency department. My interpretation is no free air or signs of bowel obstruction, there is enhancement on the right kidney that could be consistent with pyelonephritis, final report below. Radiologist's Impression: Abdomen/Pelvis CT 04/22/23 08:43 CT OF THE ABDOMEN AND PELVIS WITH CONTRAST CLINICAL HISTORY: right flank pain, UTI COMPARISON STUDY: CT of the abdomen and pelvis April 19, 2023. TECHNIQUE: Following IV administration of 88 mL of Optiray, axial images of the abdomen and pelvis were obtained from the lung bases to the proximal femurs. Images were reviewed in the axial, sagittal, and coronal planes. IV contrast was administered without complication. Automated exposure control was utilized for the study. A dose lowering technique was utilized adhering to the principles of ALARA. CT DOSE: 655.21 mGy.cm FINDINGS: Lung bases are unremarkable. No pneumatosis, free air or portal venous gas is present. There is no significant biliary ductal dilatation status post cholecystectomy. Mild splenomegaly is unchanged. Adrenal glands and pancreas are unremarkable. A 4.4 cm water attenuation left renal lesion represents a cyst. Smaller right renal cyst is present. Multiple bilateral renal calculi measure up to 1.2 cm. There are no ureteral calculi. There is no hydronephrosis. Pelvic calcifications represent phleboliths. Urothelial thickening of the right ureter is present. Multifocal hypoenhancing foci within the right kidney are present. Right perinephric stranding and fluid is present. This represents a significant change since CT of April 19, 2023. This includes an ill-defined 4.8 x 3.8 x 3 cm focus within the mid to lower pole of the right kidney which contains multiple clustered small fluid components. Additional hypoenhancing foci within the right kidney are noted. A few hypoenhancing foci within the left kidney are present. No drainable fluid collection is present. No evidence for a bowel obstruction. IMPRESSION: 1. Findings consistent with acute right pyelonephritis. Multiple hypoenhancing foci within the right kidney, including a 4.8 x 3.8 x 3 cm mid to lower pole focus which contains multiple small fluid components. This is suggestive of phlegmon with developing abscess formation. No drainable fluid collection at this time. Right perinephric stranding and fluid. Urothelial thickening of the right ureter consistent with pyelitis. 2. Subtle hypoenhancing foci within the left kidney suggestive of acute pyelonephritis. 3. Bilateral nephrolithiasis. No ureteral calculi. No hydronephrosis. ACT 112: Negative or not required by law. Electronically signed by: Edis Solano M.D. 04/22/2023 11:09 AM Discharge Plan Visit Data Chief Complaint: Urinary Symptoms Stated Complaint: UTI, VOMITING ED Provider: Ritchie Santos Discharge Problem: Pyelonephritis, Vomiting, Hypokalemia, SIRS (systemic inflammatory response syndrome) Patient Disposition: Being Evaluated by Hospitalist Forms Stand Alone Forms: [facility] [place] Quisic Prescriptions Prescriptions: No Action levetiracetam [Keppra] 500 mg tablet 500 mg PO BID Qty: 180 1RF buspirone 7.5 mg tablet 7.5 mg PO TID Qty: 270 3RF lorazepam 0.5 mg tablet 0.25 - 0.5 mg PO DAILY PRN (Reason: Anxiety) Qty: 30 0RF Rx Instructions: Supervising Caprice Clayton MD NPI [id number] fluoxetine 40 mg capsule 40 mg PO HS Qty: 90 3RF flaxseed oil 1,000 mg capsule 1,000 mg PO QAM sennosides-docusate sodium 8.6-50 mg tablet 1 tab PO QPM pravastatin 20 mg tablet 20 mg PO QAM Qty: 90 3RF semaglutide (weight loss) 0.25 mg/0.5 mL pen injector 0.25 - 0.5 mg subcut Q7D Qty: 2 3RF Rx Instructions: PER PT "HAVEN'T HAD FOR 3-4 WKS, BACK ORDERED" Inject 0.25mg weekly for weeks 1-4, then 0.5mg weekly thereafter nitrofurantoin monohyd/m-cryst 100 mg capsule 100 mg PO Q12H 5 Days Qty: 10 0RF Rx Instructions: STARTED 04/19/23 FOR 5 DAYS. must administer with a meal/food omega 3-eqy-dyj-fish oil [Fish Oil] 1,000 mg (120 mg-180 mg) Capsule 1 cap PO QAM lisinopril 5 mg tablet See Rx Instructions .ROUTE .COMPLEX Rx Instructions: TAKES 10 MG QAM, THEN 5 MG QPM. dicyclomine 20 mg tablet 20 mg PO BID PRN (Reason: ABD PAIN) Rx Instructions: TAKE 1 TABLET BY MOUTH TWICE DAILY NEEDED FOR ABDOMINAL PAIN pantoprazole 40 mg tablet,delayed release (DR/EC) 40 mg PO BID Rx Instructions: TAKE 30 MINUTES BEFORE BREAKFAST AND DINNER. ondansetron HCl 4 mg tablet 4 mg PO TID PRN (Reason: nausea and vomiting) 5 Days Qty: 15 0RF Referrals Referrals: Caprice Clayton MD [Primary Care Provider] - Discharge Problem: Vomiting Qualifiers: Vomiting type: unspecified Nausea presence: with nausea Qualified Code(s): R 11.2 - Nausea with vomiting, unspecified
[2023-04-22] MEDS: MoRPHine SULFATE 4 MG/ML 1 ML CARP\\VIAL IV PRN ×2 (09:09→11:24)
[2023-04-22 10:09] LABS: Albumin Level 3.3 gm/dl (3.4-5.0); BUN Creatinine Ratio 16.7 (10-20); Bilirubin,Total 0.6 mg/dl (0.2-1.0); Calcium 9.2 mg/dl (8.6-10.3); Creatinine Clr Calc Pharmacy 63.3 ml/min; Est GFR (African American) 85.2 ml/min; Est GFR (Non-African American) 73.5 ml/min; Globulin 3.4 gm/dl (2.5-4.0); Total Protein 6.7 gm/dl (6.0-8.3)
[2023-04-22 10:15] LABS: Potassium 3.1 mmol/L (3.5-5.1); Troponin I High Sensitivity 11.1 pg/ml (0-14)
[2023-04-22 10:23] LABS: Hematocrit (blood only) 32.7 % (37.0-47.0); Hemoglobin 11.1 g/dl (12.0-16.0); Mean Corpuscular Hemoglobin 28.6 pg (25.0-34.0); Mean Corpuscular Hgb Conc 33.9 g/dL (32.0-36.0); Mean Corpuscular Volume 84.3 fL (80.0-100.0); Mean Platelet Volume 10.9 fL (9.4-12.4); Platelet Count 144 K/uL (130-400); RDW Coefficient of Variation 15.1 % (11.5-14.5); Red Blood Count 3.88 M/uL (4.20-5.40); White Blood Count 15.75 K/ul (4.8-10.8)
[2023-04-22] MEDS ORDERED: POTASSIUM CHLORIDE / WTR 10 MEQ/100 ML PLCT IV ONE (10:36)
[2023-04-22] MEDS ORDERED: OPTIRAY 320 500ml IV ONE (10:44)
--- NOTE | 2023-04-22 11:10 | CT Scan Report ---
CT OF THE ABDOMEN AND PELVIS WITH CONTRAST CLINICAL HISTORY: right flank pain, UTI COMPARISON STUDY: CT of the abdomen and pelvis April 19, 2023. TECHNIQUE: Following IV administration of 88 mL of Optiray, axial images of the abdomen and pelvis we re obtained from the lung bases to the proximal femurs. Images were reviewed in the axial, sagittal, and coronal planes. IV contrast was administered without complication. Automated exposure control wa s utilized for the study. A dose lowering technique was utilized adhering to the principles of ALARA . CT DOSE: 655.21 mGy.cm FINDINGS: Lung bases are unremarkable. No pneumatosis, free air or portal venous gas is present. Ther e is no significant biliary ductal dilatation status post cholecystectomy. Mild splenomegaly is uncha nged. Adrenal glands and pancreas are unremarkable. A 4.4 cm water attenuation left renal lesion repr esents a cyst. Smaller right renal cyst is present. Multiple bilateral renal calculi measure up to 1. 2 cm. There are no ureteral calculi. There is no hydronephrosis. Pelvic calcifications represent phle boliths. Urothelial thickening of the right ureter is present. Multifocal hypoenhancing foci within t he right kidney are present. Right perinephric stranding and fluid is present. This represents a sign ificant change since CT of April 19, 2023. This includes an ill-defined 4.8 x 3.8 x 3 cm focus withi n the mid to lower pole of the right kidney which contains multiple clustered small fluid components. Additional hypoenhancing foci within the right kidney are noted. A few hypoenhancing foci within the left kidney are present. No drainable fluid collection is present. No evidence for a bowel obstructi on. IMPRESSION: 1. Findings consistent with acute right pyelonephritis. Multiple hypoenhancing foci within the right kidney, including a 4.8 x 3.8 x 3 cm mid to lower pole focus which contains multiple small fluid comp onents. This is suggestive of phlegmon with developing abscess formation. No drainable fluid collecti on at this time. Right perinephric stranding and fluid. Urothelial thickening of the right ureter con sistent with pyelitis. 2. Subtle hypoenhancing foci within the left kidney suggestive of acute pyelonephritis. 3. Bilateral nephrolithiasis. No ureteral calculi. No hydronephrosis. ACT 112: Negative or not required by law. Electronically signed by: Edis Solano M.D. 04/22/2023 11:09 AM
[2023-04-22] MEDS ORDERED: SODIUM CHLORIDE 0.9% 1,000 ML IV ONE (11:17)
[2023-04-22 11:20] LABS: Basophils # (auto) 0.05 K/uL (0.00-0.20); Basophils % (auto) 0.3 %; Echinocytes 2+; Eosinophils # (auto) 0.02 K/uL (0.00-0.50); Eosinophils % (auto) 0.1 %; Immature Granulocytes # (auto) 0.18 K/uL (0.01-0.20); Immature Granulocytes % (auto) 1.1 %; Lymphocytes # (auto) 0.32 K/uL (1.20-3.40); Monocytes # (auto) 1.94 K/uL (0.11-0.59); Monocytes % (auto) 12.3 %; Neutrophils # (auto) 13.24 K/uL (1.40-6.50); Neutrophils % (auto) 84.2 %
[2023-04-22] MEDS ORDERED: levETIRAcetam 1,000 MG in 0.9 % SODIUM CHLORIDE 100 ML IV STA (11:36)
--- NOTE | 2023-04-22 11:36 | History & Physical Report ---
Date of Service April 22, 2023 Assessment & Plan (1) Sepsis: Plan: -Admit to the PCU on tele -Currently in sinus tachycardia with HR in the 140's but otherwise stable -Presented to the ED this am with ongoing urinary symptoms, nausea, vomiting, right flank pain and inability to consistency keep PO medications down including her recently prescribed macrobid -The patient met sepsis criteria on arrival with a HR in the 140's, leukocytosis of 15, and UTI with radiographic evidence of BL pyelonephritis with Multiple hypoenhancing foci within the right kidney, including a 4.8 x 3.8 x 3 cm mid to lower pole focus which contains multiple small fluid components concerning for possible developing abscess. >No drainable fluid collection noted on CT today -The patient was initially given 1L NSS, a dose of ceftriaxone, and ordered another 500 mL NSS bolus prior to admission to complete her sepsis fluid bolus -Unfortunately blood cultures, lactate, Procal, and CRP were not ordered prior to admission and prior to the patient receiving a dose of ceftriaxone; the rest of the sepsis workup was ordered stat at the time of admission -Will given a 1L Plasmalyte bolus after the 500 mL NSS bolus is complete as she appears dehydrated and is still tachycardic with HR in the 140-150's with mottling noted in the BL upper extremities -Urine culture with sensitives from 04/20/23 is growing Klebsiella with intermediate sensitivity to Macrobid but otherwise pansensitive -Continue ceftriaxone for now based on urine culture from 04/20 -Urology consult placed to have them follow while admitted -Will obtain CXR for to rule out other sources of infection -SQ lovenox for DVT PPX -Clear liquid diet for now -AM CBC. CMP, mag (2) Pyelonephritis: Plan: -Patient with sign so BL pyelonephritis and right renal phlegmon with signs of developing abscess -The CT report does not show signs of current fluid collection able to be drained -Urology has been consulted -May need to repeat CT scan later in her admission to monitor for development of abscess -Rest of care per sepsis plan (3) UTI due to Klebsiella species: Plan: -Noted on urine culture from 04/20 -Intermediate sensitivity to Macrobid but is otherwise pansensitive -S/P one dose of Ceftriaxone in the ED, continue with Ceftriaxone for now -Rest of care per Sepsis plan (4) Sinus tachycardia: Plan: -Patient noted to be in sinus tachycardia with HR up in the 150's since arrival -Has been hemodynamically stable -Denies chest discomfort -Likely due to dehydration, sepsis, and hypokalemia -Continue to monitor on tele -Rest of care per sepsis plan (5) Hypokalemia: Plan: -Noted to be 3.1 on arrival -Likely due to her ongoing nausea and vomiting with poor oral intake -Will obtain stat mag level on admission -S/P 10 meq IV KCL in the ED -Will give an additional 3 bags of 10 meq IV KCL on admission as she is unable to tolerate PO intake at this time -Continue to monitor on tele -Will order follow up potassium this evening (6) Nausea & vomiting: Plan: -Likely due to her acute illness -Denies hematemesis and coffee ground emesis -S/P one dose of IV zofran in the ED -Will continue prn Zofran as QTc is WLN -Will give a dose of IV famotidine now then continue PO Pantoprazole when able to tolerate po intake (7) History of seizure: Plan: -No recent seizure hx -Was able to take her HS dose of keprra last night -Will give 1gm IV keppra on admission with her current nausea and vomiting -Will plan to continue her normal PO BID keppra tonight; if still unable to tolerate PO intake will convert to IV (8) Labile hypertension: Plan: -Has been hemodynamically stable since arrival -Holding lisinopril for now with her current sepsis (9) Renal abscess: Plan The patient was discussed with Dr. Collier at the time of the admission History of Present Illness Chief Complaint: Known UTI, now with nausea, vomiting, right flank pain Primary Care Provider: Caprice Clayton MD Odalys is a 53 year old female with a PMH significant for Chron's disease, hx of seizure (on Keppra), GERD, HTN, anxiety who presented to the [facility] ED on 04/22/23 with complaints of worsening UTI symptoms with associated nausea, vomiting, and right flank pain. Per the ED staff, the patient was diagnosed with a UTI by her PCP on 04/19/23 and was prescribed a course of Macrobid. She presented to the [facility] ED on 04/20/23 with uncontrolled nausea and vomiting. CT of the abd/pelvis wo con was obtained and was negative for signs of Nephrolithiasis or signs of obstruction. She was given 1L NSS and a dose of zofran and discharged home to continue her home course of Macrobid. Unfortunately her nausea and vomiting continued and she has been unable to successful take her oral antibiotic at home. In the ED she was noted to be tachycardic with a HR of 127 but otherwise stable. Labs were significant for a leukocytosis of 15 with neutrophil predominance of 13, potassium of 3.1, alk phos of 113. Ct of the abd/pelvis w/IV con was read as "1. Findings consistent with acute right pyelonephritis. Multiple hypoenhancing foci within the right kidney, including a 4.8 x 3.8 x 3 cm mid to lower pole focus which contains multiple small fluid components. This is suggestive of phlegmon with developing abscess formation. No drainable fluid collection at this time. Right perinephric stranding and fluid. Urothelial thickening of the right ureter consistent with pyelitis. 2. Subtle hypoenhancing foci within the left kidney suggestive of acute pyelonephritis. 3. Bilateral nephrolithiasis. No ureteral calculi. No hydronephrosis.". Prior to admission the patient was given 1L NSS, 2gm Ceftriaxone, 10 meq IV KCL, and ordered another 500 mL NSS bolus to complete her sepsis fluid bolus of 1500 mL based on ideal body weight. At the time of the exam the patient was lying in bed in no acute distress, she is ill appearing. She and her confirm the above history. She states that she has been unable to keep food or medications consistently down over the past 48 hours. She was able to take her HS medications last night which included her Keppra and lisinopril. She and her state that her urine looks closer to normal today compared to 04/20 when she was in the ED. Her abdominal discomfort started in the suprapubic region and progressed to the right flank over the past 48 hours. She states that she was having chills and shaking approximately 30 min prior to my exam. She is on Ozempic for weight loss but has not had a dose in a month as it is out of stock. She is a full code. Please refer to Dr. Collier's attestation for any changes to the treatment plan Allergies Allergy/AdvReac Type Severity Reaction Status Date / Time No Known Allergies Allergy Verified 04/22/23 11:26 Home Medications Medication Instructions Recorded Confirmed Type flaxseed oil 1,000 mg capsule 1,000 mg PO QAM 07/20/19 04/22/23 History sennosides 8.6 mg-docusate sodium 1 tab PO QPM 07/20/19 04/22/23 History 50 mg tablet omega 0-sga-bhx-fish oil 1,000 mg 1 cap PO QAM 03/10/21 04/22/23 History (120 mg-180 mg) capsule (Fish Oil) lisinopril 5 mg tablet See Rx Instructions .Route .COMPLEX 10/29/22 04/22/23 History levetiracetam 500 mg tablet 500 mg PO BID #180 tabs 11/30/22 04/22/23 Rx (Keppra) pravastatin 20 mg tablet 20 mg PO QAM #90 tabs 02/21/23 04/22/23 Rx semaglutide (weight loss) 0.25 0.25 - 0.5 mg (0.5 - 1 mL) subcut 02/21/23 04/22/23 Rx mg/0.5 mL subcutaneous pen injector Q7D #2 mL buspirone 7.5 mg tablet 7.5 mg PO TID #270 tabs 02/28/23 04/22/23 Rx lorazepam 0.5 mg tablet 0.25 - 0.5 mg (0.5 - 1 x 0.5 mg) 03/29/23 04/22/23 Rx PO DAILY PRN Anxiety #30 tabs fluoxetine 40 mg capsule 40 mg PO HS #90 caps 04/18/23 04/22/23 Rx nitrofurantoin 100 mg PO Q12H 5 days #10 caps 04/19/23 04/22/23 Rx monohydrate/macrocrystals 100 mg capsule dicyclomine 20 mg tablet 20 mg PO BID PRN ABD PAIN 04/20/23 04/22/23 History ondansetron HCl 4 mg tablet 4 mg PO TID PRN nausea and 04/20/23 04/22/23 Rx vomiting 5 days #15 tabs pantoprazole 40 mg tablet,delayed 40 mg PO BID 04/20/23 04/22/23 History release Past Med/Surg History Medical History Hypercholesterolemia with LDL greater than 190 mg/dL Overweight (BMI 25.0-29.9) History of seizure last 2020, unsure what type? grand mal--on yamilka--follows with [facility] Neurology Dr. Ridley Hypercholesteremia GERD (gastroesophageal reflux disease) Stomach ulcer Crohn's disease Deafness in left ear Migraines Hypertension Surgical History History of esophagogastroduodenoscopy (EGD) History of colonoscopy S/P endometrial ablation History of tonsillectomy and adenoidectomy History of sinus surgery History of hysterectomy total abdominal hyster History of delivery Family History Father Heart disease Myocardial infarction Hypertension Aunt Crohn's disease Grandmother (Maternal) Cancer Grandfather (Maternal) Myocardial infarction Other No family history of adverse response to anesthesia No family history of bleeding disorder Denies family history of Ovarian cancer Prostate cancer Breast cancer Colorectal cancer Social History Smoking Status: Never smoker Tobacco Type: Cigarettes Second Hand Exposure: No; Do You Dip or Chew Tobacco: No; Hx Alcohol Use: No Hx Substance Use: No Preferred Language: Portuguese Communication Ability: Effective Foot Cutter Required: No Beliefs That Will Affect Care: None marital status: Current Living Situation: Spouse Current Living Situation Comment: Lives with and daughter current occupational status: employed current occupation: Registration at [employer] Feels Safe at Home: Yes Childhood Exposure to Second-Hand Smoke: No Dental Care, Regularly: Yes Physical Activity Frequency: 5-6 Times per Week Seatbelt Use: always Sunscreen Use: Yes Assistive Devices: None Physical Exam Physical Exam: Physical Exam: General: In no acute distress, stated age, well-nourished, good hygiene, she is acutely ill appearing HEENT: Normocephalic, atraumatic, no scleral icterus, pupils around round, symmetrical, and reactive to light, dry mucus membranes, trachea midline, no thyromegaly Chest/Pulm: No respiratory distress, symmetrical chest expansion, clear breath sounds throughout Cardiac: tachycardic rate, regular rhythm, no murmurs noted Abdomen: Negative for ascites and bruising, normoactive bowel sounds, soft, tender to palpation in the suprapubic region but is otherwise non-tender, no signs of rebound tenderness or peritoneal signs : + right CVA tenderness, negative left Musculoskeletal: Symmetrical and without signs of acute trauma, upper and lower extremities with full ROM, no atrophy, spasticity, or flaccidity Extremities: Radial, dorsalis pedis, and posterior tibial pulses are intact and symmetrical, no edema noted in the BL LE's Skin: Patient with slight mottling of the skin on the BL upper extremities but is otherwise without abnormalities Neuro: Alert and oriented to person, place, month, year, no focal defects, no tremors noted Psych: No acute distress, calm and cooperative during the exam Results & Data Results & Data Vital Signs (Past 12 Hours) Vital Signs Temp Pulse Pulse Resp BP BP Pulse Ox 04/22/23 10:14 127 H 23 158/99 H 100 04/22/23 08:31 136 H 04/22/23 08:14 16 04/22/23 08:14 36.6 C 142 H 16 172/101 H 100 O2 Del Method 04/22/23 10:14 Room Air 04/22/23 08:31 04/22/23 08:14 04/22/23 08:14 Laboratory Results Abnormal lab results 04/22/23 04/22/23 04/22/23 Range/Units 08:54 10:04 11:26 WBC 15.75 H (4.8-10.8) K/ul RBC 3.88 L (4.20-5.40) M/uL Hgb 11.1 L (12.0-16.0) g/dl Hct 32.7 L (37.0-47.0) % RDW Coeff of Xochilt 15.1 H (11.5-14.5) % Neut # (Auto) 13.24 H (1.40-6.50) K/uL Lymph # (Auto) 0.32 L (1.20-3.40) K/uL Eaton # (Auto) 1.94 H (0.11-0.59) K/uL Potassium 3.1 L (3.5-5.1) mmol/L Anion Gap 12 H (3-11) Glucose 118 H (70-99(Fasting)) mg/dl Alkaline Phosphatase 113 H (34-104) U/L Albumin 3.3 L (3.4-5.0) gm/dl Lipase 5 L (11-82) U/L Ur Specific Jasper 1.040 H (1.000-1.030) Urine Protein 1+ H (Negative) Urine Ketones Trace H (Negative) Urine Blood 2+ H (Negative) Ur Leukocyte Esterase Trace H (Negative) Urine WBC (Auto) >30 H (0-5) /hpf Urine RBC (Auto) 10-30 H (0-4) /hpf U Epithel Cells (Auto) >30 H (0-5) /lpf Diagnostic Findings Abdomen/Pelvis CT 04/22/23 08:43 CT OF THE ABDOMEN AND PELVIS WITH CONTRAST CLINICAL HISTORY: right flank pain, UTI COMPARISON STUDY: CT of the abdomen and pelvis April 19, 2023. TECHNIQUE: Following IV administration of 88 mL of Optiray, axial images of the abdomen and pelvis were obtained from the lung bases to the proximal femurs. Images were reviewed in the axial, sagittal, and coronal planes. IV contrast was administered without complication. Automated exposure control was utilized for the study. A dose lowering technique was utilized adhering to the principles of ALARA. CT DOSE: 655.21 mGy.cm FINDINGS: Lung bases are unremarkable. No pneumatosis, free air or portal venous gas is present. There is no significant biliary ductal dilatation status post cholecystectomy. Mild splenomegaly is unchanged. Adrenal glands and pancreas are unremarkable. A 4.4 cm water attenuation left renal lesion represents a cyst. Smaller right renal cyst is present. Multiple bilateral renal calculi measure up to 1.2 cm. There are no ureteral calculi. There is no hydronephrosis. Pelvic calcifications represent phleboliths. Urothelial thickening of the right ureter is present. Multifocal hypoenhancing foci within the right kidney are present. Right perinephric stranding and fluid is present. This represents a significant change since CT of April 19, 2023. This includes an ill-defined 4.8 x 3.8 x 3 cm focus within the mid to lower pole of the right kidney which contains multiple clustered small fluid components. Additional hypoenhancing foci within the right kidney are noted. A few hypoenhancing foci within the left kidney are present. No drainable fluid collection is present. No evidence for a bowel obstruction. IMPRESSION: 1. Findings consistent with acute right pyelonephritis. Multiple hypoenhancing foci within the right kidney, including a 4.8 x 3.8 x 3 cm mid to lower pole focus which contains multiple small fluid components. This is suggestive of phlegmon with developing abscess formation. No drainable fluid collection at this time. Right perinephric stranding and fluid. Urothelial thickening of the right ureter consistent with pyelitis. 2. Subtle hypoenhancing foci within the left kidney suggestive of acute pyelonephritis. 3. Bilateral nephrolithiasis. No ureteral calculi. No hydronephrosis. ACT 112: Negative or not required by law. Electronically signed by: Edis Solano M.D. 04/22/2023 11:09 AM ECG Additional Comments: Sinus tachycardia Possible Left atrial enlargement Incomplete right bundle branch block Anteroseptal infarct (cited on or before 22-APR-2023) Abnormal ECG When compared with ECG of 10-MAR-2021 17:13, Questionable change in initial forces of Septal leads T wave inversion now evident in Anterior leads Nonspecific T wave abnormality no longer evident in Lateral leads Code Status & VTE Plan Code Status Full code VTE Prophylaxis Plan VTE Prophylaxis will be ordered: Yes Supervising Physician Co-Signing Physician Notes I personally saw and examined the patient. I verified all rueda points and agree with Magnus Hanson PA-C with the following exceptions and/or additions: 53 year old female presents to the ER with fever, chills, dysuria, nausea, vomiting since Tuesday. Prescribed nitrofurantoin but unable to take this due to nausea and vomiting. O/E HS increased rate, regular rhythm, no murmurs, Chest CTAB, Abdo SNT, right CVA tenderness A/P Sepsis - source right renal abscess/pyelonephritis, lactate 1.8 after some fluid resuscitation Right pyelonephritis/abscess - known klebsiella pneumoniae from urine cultures from 04/19 and 04/20, IV ceftriaxone follow up repeat urine and blood cultures. consult urology. Will defer follow up imaging to urology. PG Care Time/CCT Total # of Minutes Spent Total Time Spent with Patient: Total time spent is greater than 50% in coordination of care (as documented) at patient's floor/unit and/or counseling patient: C[place] [address] INT INP/OBS CARE 3/75MIN Patient Type Established Medical Decision Making High Complexity Diagnoses Sepsis A41.9 Pyelonephritis N12 UTI due to Klebsiella species N39.0; B96.89 Sinus tachycardia R00.0 Hypokalemia E87.6 Nausea & vomiting R11.2 History of seizure Z87.898 Labile hypertension R09.89 Renal abscess N15.1
[2023-04-22 11:45] LABS: Appearance Urine Clear (Clear); Bacteria Urine Automated Negative (Negative); Bilirubin Urine Negative (Negative); Blood Urine 2+ (Negative); Color Urine Yellow; Epithelial Cell Urine Auto >30 /lpf (0-5); Glucose Urine UA Negative (Negative); Ketones Urine Trace (Negative); Leukocyte Esterase Urine Trace (Negative); Nitrite Urine Negative (Negative); Protein Urine 1+ (Negative); Urobilinogen Urine Negative (Negative); WBC Urine Automated >30 /hpf (0-5); pH Urine 6.5 (4.5-7.5)
[2023-04-22] MEDS ORDERED: PLASMA-LYTE A 1,000 ML IV ONE (11:48)
[2023-04-22] MEDS ORDERED: ACETAMINOPHEN 325 MG TAB PO PRN (11:50)
[2023-04-22] MEDS ORDERED: MoRPHine SULFATE 4 MG/ML 1 ML CARP\\VIAL IV PRN (11:50)
[2023-04-22] MEDS: ONDANSETRON INJ 2 MG/ML 2 ML VIAL IV PRN ×2 (11:53→16:07)
--- NOTE | 2023-04-22 11:56 | Electrocardiogram Report ---
Test Reason : Blood Pressure : / mmHG Vent. Rate : 135 BPM Atrial Rate : 135 BPM P-R Int : 136 ms QRS Dur : 102 ms QT Int : 288 ms P-R-T Axes : 060 039 053 degrees QTc Int : 432 ms Sinus tachycardia Left atrial enlargement Incomplete right bundle branch block Poor R wave progression, consider anterior NJ vs. lead placement vs. LVH Abnormal ECG When compared with ECG of 10-MAR-2021 17:13, No significant change Confirmed by Deon Castellano ([id number]) on 04/22/2023 11:56:05 AM Referred By: Confirmed By:Deon Castellano
[2023-04-22] MEDS ORDERED: LORazepam 0.5 MG TAB PO PRN ×2 (12:29→12:47)
--- NOTE | 2023-04-22 12:39 | XRay Report ---
SINGLE VIEW CHEST CLINICAL HISTORY: Sepsis FINDINGS: An AP, portable, upright chest radiograph is compared to study dated 04/20/2023. The cardiom ediastinal silhouette is unremarkable. There is mild bibasilar atelectasis. The lungs and pleural spa claudy are otherwise clear. No pneumothorax is seen. The bony thorax is grossly intact. IMPRESSION: No active disease in the chest. ACT 112: Negative or not required by law. Electronically signed by: Ritchie Field M.D. 04/22/2023 12:37 PM
[2023-04-22] MEDS ORDERED: FAMOTIDINE 20 MG in SYRINGE 3 ML IV ONE (12:45)
[2023-04-22 12:50] LABS: Magnesium 1.6 mg/dl (1.7-2.4)
[2023-04-22 13:10] LABS: C Reactive Protein 38.91 mg/dl (0-0.5)
[2023-04-22] MEDS: POTASSIUM CHLORIDE / WTR 10 MEQ/100 ML PLCT IV SCH ×3 (13:30→17:20)
--- NOTE | 2023-04-22 13:46 | Urology Consultation ---
Date of Consultation April 22, 2023 Assessment & Plan (1) Pyelonephritis: (2) UTI due to Klebsiella species: (3) Nephrolithiasis: (4) Flank pain: Plan 53yo/F admitted with CT findings concerns for bilateral pyelonephritis and right renal phlegmon with signs of developing abscess -Afebrile, tachycardic, hypertensive -Labs reviewed - WBC 15.75, creatinine 0.90. -Urine culture 04/19 and 04/20 positive with Klebsiella. Repeat UCx pending. Blood cultures pending. On Ceftriaxone. -Voiding spontaneously, continue to monitor. Bladder scan as needed. -No plan for urological intervention. -CT scan with evidence of bilateral pyelonephritis and a right renal phlegmon with signs of developing abscess, no drainable fluid collection noted, no hydronephrosis -We reviewed her CT findings and discussed that we do not have interventional radiology and therefore if she develops an abscess/drainable fluid collection she will need transferred to a tertiary center with interventional radiology for drainage. -Continue supportive care and close monitoring. -Continue antibiotic therapy -Continue to trend labs -Recommend repeating CT scan likely tomorrow to monitor for development of abscess -If patient develops fevers or other acute changes, recommend transfer to tertiary center with interventional radiology for drainage. -Urology will follow. Plan of care reviewed with Dr. Juarez, on-call urologist. History of Present Illness Attending Physician: Karthik Collier MD History of Present Illness 53 year old female with a PMHx of nephrolithiasis who presented to the [facility] ED on 04/22/23 with complaints of worsening UTI symptoms with associated nausea, vomiting, and right flank pain. She was recently seen in the ED on 04/20/2023 with nausea and vomiting. CT at that time was negative for obstructive stones. She was noted to have a positive urine culture with Klebsiella. She was given IV fluids and Zofran and discharged home with course of Macrobid. Unfortunately her nausea and vomiting persisted and she returned to the ED today due to worsening symptoms. On arrival she was afebrile, tachycardic and hypertensive. Labs showing a leukocytosis of 15.[address] abdomen pelvis was obtained and notable for bilateral pyelonephritis with multiple hypoenhancing foci within the right kidney containing multiple small fluid components suggestive of phlegmon with developing abscess formation, no drainable fluid collection at this time, bilateral nephrolithiasis, no ureteral stones or hydronephrosis. She was given a dose of ceftriaxone in the ED. Admitted to medicine service for continued care and management. Urology consulted for BL pyelo with possible developing Phlegmon Patient is well-known to the urology service, follows with Dr. Contreras. CT abdomen pelvis 04/22/23- 1. Findings consistent with acute right pyelonephritis. Multiple hypoenhancing foci within the right kidney, including a 4.8 x 3.8 x 3 cm mid to lower pole focus which contains multiple small fluid components. This is suggestive of phlegmon with developing abscess formation. No drainable fluid collection at this time. Right perinephric stranding and fluid. Urothelial thickening of the right ureter consistent with pyelitis. 2. Subtle hypoenhancing foci within the left kidney suggestive of acute pyelonephritis. 3. Bilateral nephrolithiasis. No ureteral calculi. No hydronephrosis. CT abdomen pelvis 04/19/23- . No acute abnormalities and in particular no evidence of obstructive nephrolithiasis. Nonobstructive stones are seen bilaterally. 2. Status post cholecystomy. 3. Additional findings as above. Patient examined at bedside in the ED. Awake, resting in bed on arrival. No acute distress. She reports several days of nausea, vomiting, and now right flank pain. Denies fever. Some chills. States she has been dehydrated and not voiding much but did void earlier without issue. Denies hematuria or dysuria. Feels she is emptying her bladder well. Allergies Allergy/AdvReac Type Severity Reaction Status Date / Time No Known Allergies Allergy Verified 04/22/23 11:26 Home Medications Medication Instructions Recorded Confirmed Type flaxseed oil 1,000 mg capsule 1,000 mg PO QAM 07/20/19 04/22/23 History sennosides 8.6 mg-docusate sodium 1 tab PO QPM 07/20/19 04/22/23 History 50 mg tablet omega 9-lyk-lkf-fish oil 1,000 mg 1 cap PO QAM 03/10/21 04/22/23 History (120 mg-180 mg) capsule (Fish Oil) lisinopril 5 mg tablet See Rx Instructions .Route .COMPLEX 10/29/22 04/22/23 History levetiracetam 500 mg tablet 500 mg PO BID #180 tabs 11/30/22 04/22/23 Rx (Keppra) pravastatin 20 mg tablet 20 mg PO QAM #90 tabs 02/21/23 04/22/23 Rx semaglutide (weight loss) 0.25 0.25 - 0.5 mg (0.5 - 1 mL) subcut 02/21/23 04/22/23 Rx mg/0.5 mL subcutaneous pen injector Q7D #2 mL buspirone 7.5 mg tablet 7.5 mg PO TID #270 tabs 02/28/23 04/22/23 Rx lorazepam 0.5 mg tablet 0.25 - 0.5 mg (0.5 - 1 x 0.5 mg) 03/29/23 04/22/23 Rx PO DAILY PRN Anxiety #30 tabs fluoxetine 40 mg capsule 40 mg PO HS #90 caps 04/18/23 04/22/23 Rx nitrofurantoin 100 mg PO Q12H 5 days #10 caps 04/19/23 04/22/23 Rx monohydrate/macrocrystals 100 mg capsule dicyclomine 20 mg tablet 20 mg PO BID PRN ABD PAIN 04/20/23 04/22/23 History ondansetron HCl 4 mg tablet 4 mg PO TID PRN nausea and 04/20/23 04/22/23 Rx vomiting 5 days #15 tabs pantoprazole 40 mg tablet,delayed 40 mg PO BID 04/20/23 04/22/23 History release Patient History Medical History Hypercholesterolemia with LDL greater than 190 mg/dL Overweight (BMI 25.0-29.9) History of seizure last 2020, unsure what type? grand mal--on keppra--follows with [facility] Neurology Dr. Ridley Hypercholesteremia GERD (gastroesophageal reflux disease) Stomach ulcer Crohn's disease Deafness in left ear Migraines Hypertension Surgical History History of esophagogastroduodenoscopy (EGD) History of colonoscopy S/P endometrial ablation History of tonsillectomy and adenoidectomy History of sinus surgery History of hysterectomy total abdominal hyster History of delivery Family History Father Heart disease Myocardial infarction Hypertension Aunt Crohn's disease Grandmother (Maternal) Cancer Grandfather (Maternal) Myocardial infarction Other No family history of adverse response to anesthesia No family history of bleeding disorder Denies family history of Ovarian cancer Prostate cancer Breast cancer Colorectal cancer Social History Smoking Status: Never smoker Tobacco Type: Cigarettes Second Hand Exposure: No; Do You Dip or Chew Tobacco: No; Hx Alcohol Use: No Hx Substance Use: No Preferred Language: Malay Communication Ability: Effective Anesthesiologist Assistant Required: No Beliefs That Will Affect Care: None marital status: Current Living Situation: Spouse Current Living Situation Comment: Lives with and daughter current occupational status: employed current occupation: Registration at [facility] Other Information That Helps Us Care for You: No Feels Safe at Home: Yes Safety Concerns: Feels Safe At This Time Childhood Exposure to Second-Hand Smoke: No Dental Care, Regularly: Yes Physical Activity Frequency: 5-6 Times per Week Seatbelt Use: always Sunscreen Use: Yes Assistive Devices: None Review of Systems Review of Systems: All systems reviewed & are unremarkable except as noted in HPI & below Physical Exam Constitutional: + ill appearing; no acute distress Neck: normal visual inspection Respiratory: normal respiratory effort; no respiratory distress and no labored breathing Musculoskeletal: Head/Neck/Chest: normocephalic Skin: No visible rashes or lesions to exposed skin areas Neurologic: moves all extremities and awake Psychiatric: A+Ox3, euthymic affect Results & Data Vital Signs (Past 12 Hours) Vital Signs Temp Pulse Pulse Resp BP BP Pulse Ox 04/22/23 13:05 141 H 16 153/97 H 96 04/22/23 12:38 141 H 04/22/23 10:14 127 H 23 158/99 H 100 04/22/23 08:31 136 H 04/22/23 08:14 16 04/22/23 08:14 36.6 C 142 H 16 172/101 H 100 O2 Del Method 04/22/23 13:05 04/22/23 12:38 04/22/23 10:14 Room Air 04/22/23 08:31 04/22/23 08:14 04/22/23 08:14 PG Care Time/CCT Total # of Minutes Spent Total Time Spent with Patient: Total time spent is greater than 50% in coordination of care (as documented) at patient's floor/unit and/or counseling patient: Coding Level of Care Code 64841 IN/OBS CONSULT LVL 3,45M Diagnoses Pyelonephritis N12 UTI due to Klebsiella species N39.0; B96.89 Nephrolithiasis N20.0 Flank pain R10.9
[2023-04-22] MEDS: MAGNESIUM SULFATE / D5W 1 GM/100 ML BAG IV SCH ×2 (13:47→16:03)
[2023-04-22] MEDS: ENOXAPARIN INJ 40 MG/0.4 ML SYR SQ SCH (13:50)
[2023-04-22] MEDS: busPIRone 7.5 MG TAB PO SCH ×2 (13:50→21:08)
[2023-04-22] MEDS: PANTOprazole 40 MG TAB PO SCH (17:22)
[2023-04-22] MEDS ORDERED: PLASMA-LYTE A 1,000 ML IV SCH (17:45)
[2023-04-22] MEDS ORDERED: POTASSIUM CHLORIDE CRTAB 20 MEQ TABCR PO STA (18:12)
--- NOTE | 2023-04-22 18:58 | XRay Report ---
XR chest 1V portable HISTORY: Shortness of breath. COMPARISON: Chest 04/22/2023. FINDINGS: No pneumothorax. No pleural effusions. The cardiac silhouette is mildly enlarged. There are low lung volumes. There is progressive interstitial/vascular thickening consistent with mild pulmona ry edema. Right medial lung base hazy airspace opacity is also new compared the prior study. This cou ld represent a component of the pulmonary edema or a pneumonia. Prior cholecystectomy. No acute fract ures. IMPRESSION: 1. Cardiomegaly with mild interstitial pulmonary edema. 2. There is a new right medial lung base hazy airspace opacity. This could represent a component of t he pulmonary edema or a pneumonia. ACT 112: Negative or not required by law. Electronically signed by: Riaz Reynoso M.D. 04/22/2023 6:56 PM
[2023-04-22] MEDS: levETIRAcetam 500 MG TAB PO SCH (21:08)
[2023-04-22] MEDS: FLUoxetine HCL 20 MG CAP PO SCH (21:08)
[2023-04-23] MEDS: ONDANSETRON INJ 2 MG/ML 2 ML VIAL IV PRN ×2 (02:01→11:33)
[2023-04-23] MEDS: PANTOprazole 40 MG TAB PO SCH ×2 (06:00→16:11)
[2023-04-23 08:12] LABS: Basophils # (auto) 0.06 K/uL (0.00-0.20); Basophils % (auto) 0.4 %; Eosinophils # (auto) 0.01 K/uL (0.00-0.50); Eosinophils % (auto) 0.1 %; Hematocrit (blood only) 39.5 % (37.0-47.0); Hemoglobin 13.5 g/dl (12.0-16.0); Immature Granulocytes # (auto) 0.32 K/uL (0.01-0.20); Immature Granulocytes % (auto) 1.9 %; Lymphocytes # (auto) 1.18 K/uL (1.20-3.40); Lymphocytes % (auto) 6.9 %; Mean Corpuscular Hemoglobin 29.3 pg (25.0-34.0); Mean Corpuscular Hgb Conc 34.2 g/dL (32.0-36.0); Mean Corpuscular Volume 85.7 fL (80.0-100.0); Mean Platelet Volume 11.1 fL (9.4-12.4); Monocytes # (auto) 2.15 K/uL (0.11-0.59); Monocytes % (auto) 12.6 %; Neutrophils % (auto) 78.1 %; Platelet Count 193 K/uL (130-400); RDW Coefficient of Variation 15.8 % (11.5-14.5); RDW Standard Deviation 49.1 fL (36.4-46.3); Red Blood Count 4.61 M/uL (4.20-5.40); White Blood Count 17.02 K/ul (4.8-10.8)
[2023-04-23] MEDS: levETIRAcetam 500 MG TAB PO SCH ×2 (08:40→20:35)
[2023-04-23] MEDS: busPIRone 7.5 MG TAB PO SCH ×3 (08:40→20:35)
--- NOTE | 2023-04-23 09:04 | Hospitalist Progress Note ---
Date of Service April 23, 2023 Assessment & Plan (1) ARDS (adult respiratory distress syndrome): Plan: Bilateral pulmonary edema evident on chest x-ray. She is now requiring supplemental oxygen. This probably is noncardiogenic based on her lack of previous cardiac history. Cardiac echo is pending. (2) Acute respiratory failure with hypoxia: Plan: Oxygen per nasal cannula to maintain saturation greater than 90%. Treat underlying infectious process (3) Sepsis: Plan: Present on admission. She was started on Rocephin when admitted. Ciprofloxacin will be added. Known Klebsiella UTI (4) Pyelonephritis: Plan: Suspected bilaterally on CT scan. She might be developing a right renal phlegmon. Drainage procedure may become necessary. Urology consultation and recommendations appreciated (5) UTI due to Klebsiella species: Plan: Continue Rocephin. Add ciprofloxacin (6) Sinus tachycardia: Plan: Due to underlying sepsis and suspected ARDS. Telemetry. (7) Hypokalemia: Plan: Parenteral replacement. Serial labs (8) History of seizure: Plan: Stable. Continue Keppra (9) Essential hypertension: Plan: Lisinopril currently on hold Plan Transfer to tertiary care center for continued care. The patient and her have selected [facility] Admission and Anticipated Discharge Date Admission Date: April 22, 2023 Subjective Alert and oriented. However she appears short of breath and is now on oxygen. Chest x-ray reveals pulmonary edema which is probably noncardiogenic due to her lack of previous cardiac history. It appears she has developed ARDS and is now requiring oxygen per nasal cannula. In addition, she has bilateral pyelonephritis with possible development of right renal phlegmon which probably will need IR procedure for drainage. She is acutely ill. I have spoken to the patient directly and her who is at the bedside. They agreed to transfer to [facility] for continued care. I will contact the transfer center immediately and initiate the process. She is on Rocephin at this time. Will add Cipro to her antibiotic regimen. Review of Systems 2 Review of Systems: Constitutional-no fever or chills ENT-no blurred vision, no double vision, no epistaxis, no sore throat Respiratory-no cough, no wheezing. Shortness of breath developed last evening Cardiac-no palpitations, no chest pain, no syncope GI-no nausea, vomiting, diarrhea, melena, hematochezia -no urinary retention, no urinary incontinence, no dysuria, no hematuria. Right flank discomfort Musculoskeletal-no joint pain, no muscle tenderness Skin-no bruising, no rashes, no pruritus Neuro-no isolated weakness, no paresthesia Psych-no depression, no anxiety Physical Exam 2 Physical Exam: General-alert and oriented x3, intermittent low-grade fever. She denies chills HEENT-head atraumatic and normocephalic, pupils equal and reactive to light, extraocular muscles intact Neck-no lymphadenopathy or thyromegaly, trachea midline Chest-bibasilar inspiratory rales. No wheezing Cardiac-tachycardic regular rhythm. Normal S1 and S2 Abdomen-normal bowel sounds, nontender, no hepatosplenomegaly Extremities-no cyanosis, clubbing, or edema Neuro-cranial nerves II through XII intact, motor and sensory function within normal limits, strength symmetrical, no focal deficits Psych-normal affect, normal mood Results & Data Results & Data Vital Signs (Past 12 Hours) Vital Signs Temp Pulse Pulse Pulse Resp BP Pulse Ox 04/23/23 08:04 36.5 C 115 H 18 130/93 93 04/23/23 07:10 135 H 04/23/23 03:43 36.9 C 124 H 18 135/87 92 04/22/23 23:12 106 H 04/22/23 22:14 36.6 C 107 H 18 111/76 93 04/22/23 21:29 O2 Del Method O2 Flow Rate 04/23/23 08:04 Nasal Cannula 2.0 04/23/23 07:10 04/23/23 03:43 Nasal Cannula 2.0 04/22/23 23:12 04/22/23 22:14 Room Air 04/22/23 21:29 Nasal Cannula 2 Laboratory Results 04/23/23 06:26 04/23/23 06:26 PG Care Time/CCT Total # of Minutes Spent Total Time Spent with Patient: Total time spent is greater than 50% in coordination of care (as documented) at patient's floor/unit and/or counseling patient: Coding Level of Care Code 39686 SUB INP/OBS CARE 3/50MIN Diagnoses ARDS (adult respiratory distress syndrome) J80 Acute respiratory failure with hypoxia J96.01 Sepsis A41.9 Pyelonephritis N12 UTI due to Klebsiella species N39.0; B96.89 Sinus tachycardia R00.0 Hypokalemia E87.6 History of seizure Z87.898 Essential hypertension I10
[2023-04-23] MEDS ORDERED: SODIUM CHLORIDE 0.9% 1,000 ML IV SCH (09:15)
--- NOTE | 2023-04-23 09:17 | XRay Report ---
SINGLE VIEW CHEST CLINICAL HISTORY: Hypoxic respiratory failure FINDINGS: An AP, portable, upright chest radiograph is compared to study dated 04/22/2023. The cardiom ediastinal silhouette is top normal for projection. Bilateral interstitial and airspace opacities are similar to yesterday. No large pleural effusion or pneumothorax is seen. The bony thorax is grossly intact. Calcific tendinopathy is noted in the right shoulder. IMPRESSION: Interstitial and airspace opacities are similar to yesterday. The appearance favors pulmo nary edema. Correlate clinical for evidence of a superimposed infectious/inflammatory pneumonitis. Ra diographic follow-up to resolution is recommended. ACT 112: Negative or not required by law. Electronically signed by: Ritchie Field M.D. 04/23/2023 9:15 AM
[2023-04-23 09:35] LABS: Albumin Globulin Ratio 0.9 (0.9-2); Albumin Level 2.9 gm/dl (3.4-5.0); BUN Creatinine Ratio 12.3 (10-20); Bilirubin,Total 0.5 mg/dl (0.2-1.0); Calcium 8.3 mg/dl (8.6-10.3); Creatinine Clr Calc Pharmacy 80.4 ml/min; Est GFR (African American) 109.7 ml/min; Est GFR (Non-African American) 94.7 ml/min; Globulin 3.1 gm/dl (2.5-4.0); Magnesium 1.9 mg/dl (1.7-2.4); Potassium 2.8 mmol/L (3.5-5.1)
[2023-04-23] MEDS: cefTRIAXone SODIUM 2,000 MG in DEXTROSE 5 % MINI-B 50 ML IV SCH (09:40)
[2023-04-23] MEDS ORDERED: OPTIRAY 320 125ml IV ONE (10:04)
[2023-04-23] MEDS: CIPROFLOXACIN / D5W 400 MG/200 ML BAG IV SCH ×2 (10:16→23:12)
[2023-04-23] MEDS: POTASSIUM CHLORIDE / WTR 10 MEQ/100 ML PLCT IV SCH ×8 (10:17→22:02)
--- NOTE | 2023-04-23 10:29 | CT Scan Report ---
CT ANGIOGRAM OF THE CHEST CLINICAL HISTORY: Acute hypoxic respiratory failure COMPARISON STUDY: Chest x-ray dated 04/23/2023. Chest CT dated 03/10/2021. TECHNIQUE: Following the IV administration of 70 cc of Optiray 320, CT angiogram of the chest was per formed from the upper abdomen to the thoracic inlet utilizing the pulmonary embolus protocol. Images are reviewed in the axial, sagittal, and coronal planes. 3-D MIPS images are created and assessed. IV contrast was administered without complication. A dose lowering technique was utilized adhering to the principles of ALARA. The examination is degraded by motion artifact, as well as by streak artifac t from the right arm which could not be elevated above the chest. CT DOSE: 484.83 mGy.cm FINDINGS: Thyroid: Imaged portions of the thyroid gland are normal in size and attenuation. Thoracic aorta: The thoracic aorta is normal in caliber and demonstrates standard 3-vessel arch anato my. No dissection is seen. Pulmonary vasculature: The pulmonary trunk is normal in caliber. There are no filling defects identif ied in main, lobar, or segmental pulmonary branches to suggest pulmonary embolus. Heart: The heart is normal in size and without pericardial effusion. Lungs and pleural spaces: Evaluation of the lung parenchyma is moderately degraded by motion artifact s. Intralobular septal thickening is observed. The trachea and central airways are clear. There are b ilateral ground glass opacities. There are small pleural effusions with dependent atelectasis. Mediastinum: There is no mediastinal lymphadenopathy. Clau: Clear. Axillae: There is no axillary lymphadenopathy. Upper abdomen: Cholecystectomy clips are noted. There are numerous bilateral nonobstructing calculi s een within the partially imaged kidneys. The largest is in the right upper pole and measures up to 11 mm. Skeletal structures: No lytic or blastic bony lesions are seen. IMPRESSION: 1. There is no evidence of pulmonary embolus in the main, lobar, or segmental pulmonary arteries. 2. There is evidence of congestive failure. 3. Bilateral airspace opacities likely represent pulmonary edema. Correlate clinically for evidence o f a superimposed infectious/inflammatory pneumonitis. Radiographic follow-up to resolution is recomme nded. 4. Small pleural effusions. 5. Bilateral nephrolithiasis. 6. Additional findings as above. ACT 112: Negative or not required by law. Electronically signed by: Ritchie Field M.D. 04/23/2023 10:27 AM
[2023-04-23] MEDS ORDERED: FUROSEMIDE 40 MG/4 ML VIAL IV STA (10:37)
--- NOTE | 2023-04-23 11:18 | Pulmonary Consultation ---
Date of Consultation April 23, 2023 Assessment & Plan (1) Acute respiratory failure with hypoxia: (2) Pleural effusion: (3) Sinus tachycardia: (4) Renal abscess: Plan Impression: 53-year-old female without prior pulmonary history presenting with bilateral pyelonephritis. Urine culture is growing Klebsiella which appears to be pansensitive. She is pending transfer to [facility] for interventional radiology evaluation. He has developed an oxygen requirement CT scan demonstrates evidence of volume overload supported by her 5-1/2 L crystalloid resuscitation. Recommendations: 1. Hypoxemia: Suspect fluid overload. May have a component of capillary leak. Would hold on diuretics until the patient's infection has been treated. If hypoxemia should progress, consideration for noninvasive positive pressure ventilation might be appropriate. Diuretic should be initiated when the patient's hemodynamics will allow. 2. Bilateral pleural effusions: Too small to sample currently and likely related to resuscitation fluid administration. Continue to follow for now. 3. Recommend continuing to address and treat the patient's underlying sepsis. Consideration for repeat lactate might be appropriate. The patient does require source control and is being transferred to [facility] for additional evaluation. Defer antibiotics to the patient's primary service however she is likely treated adequately with either Rocephin or Cipro and double coverage is not likely required This point in time the patient is receiving appropriate therapy. No additional pulmonary interventions are required at this point in time. Pulmonary remains available to assist should the patient experience decline in pulmonary status. History of Present Illness Attending Physician: Darryl Epstein MD History of Present Illness Asked by hospitalist to evaluate this patient with progressive hypoxemic respiratory failure. History is obtained from review the electronic medical record as well as discussion with the patient and her at bedside. Patient is a 53-year-old female without prior pulmonary history. She presented to the emergency room 04/22/2023 with complaints of worsening UTI. Patient was initially diagnosed with urinary tract infection by her primary care provider 04/19/2023 and was treated with Macrobid. She had progressive symptoms including nausea and vomiting and inability to keep oral medications down. She presented back to the emergency room and was noted to be tachycardic with a heart rate in the 120s. She had a white blood cell count of 15,[address] abdomen and pelvis demonstrated acute right pyelonephritis with hypoenhancing foci concerning for small micro abscesses versus phlegmon. Urology was consulted. They did not see a discrete abscess to drain and recommended antibiotics. She was initially placed on Rocephin. Cipro was added last night. It was recommended that the patient be referred for tertiary evaluation for potential interventional drainage if the overt abscess were detected. The patient had been doing well but overnight developed increasing oxygen requirement shortness of breath. She was placed on oxygen. BNP was markedly elevated at over 1700. Review of her intake and output reveals that she is received over 5-1/2 L of crystalloid since presentation. She remains tachycar dic. She had a CT angiogram performed which showed no filling defects but did show some basilar atelectasis and patchy airspace opacities as well as bilateral pleural effusions. Echocardiogram is currently pending. The hospitalist has initiated the transfer process to [facility] for ID consultation, advanced urological evaluation, and potential IR guided procedure. Allergies Allergy/AdvReac Type Severity Reaction Status Date / Time No Known Allergies Allergy Verified 04/22/23 11:26 Home Medications Medication Instructions Recorded Confirmed Type flaxseed oil 1,000 mg capsule 1,000 mg PO QAM 07/20/19 04/22/23 History sennosides 8.6 mg-docusate sodium 1 tab PO QPM 07/20/19 04/22/23 History 50 mg tablet omega 8-adm-vcd-fish oil 1,000 mg 1 cap PO QAM 03/10/21 04/22/23 History (120 mg-180 mg) capsule (Fish Oil) lisinopril 5 mg tablet See Rx Instructions .Route .COMPLEX 10/29/22 04/22/23 History levetiracetam 500 mg tablet 500 mg PO BID #180 tabs 11/30/22 04/22/23 Rx (Keppra) pravastatin 20 mg tablet 20 mg PO QAM #90 tabs 02/21/23 04/22/23 Rx semaglutide (weight loss) 0.25 0.25 - 0.5 mg (0.5 - 1 mL) subcut 02/21/23 04/22/23 Rx mg/0.5 mL subcutaneous pen injector Q7D #2 mL buspirone 7.5 mg tablet 7.5 mg PO TID #270 tabs 02/28/23 04/22/23 Rx lorazepam 0.5 mg tablet 0.25 - 0.5 mg (0.5 - 1 x 0.5 mg) 03/29/23 04/22/23 Rx PO DAILY PRN Anxiety #30 tabs fluoxetine 40 mg capsule 40 mg PO HS #90 caps 04/18/23 04/22/23 Rx nitrofurantoin 100 mg PO Q12H 5 days #10 caps 04/19/23 04/22/23 Rx monohydrate/macrocrystals 100 mg capsule dicyclomine 20 mg tablet 20 mg PO BID PRN ABD PAIN 04/20/23 04/22/23 History ondansetron HCl 4 mg tablet 4 mg PO TID PRN nausea and 04/20/23 04/22/23 Rx vomiting 5 days #15 tabs pantoprazole 40 mg tablet,delayed 40 mg PO BID 04/20/23 04/22/23 History release Patient History Medical History Hypercholesterolemia with LDL greater than 190 mg/dL Overweight (BMI 25.0-29.9) History of seizure last 2020, unsure what type? grand mal--on [place]--follows with [facility] Neurology Dr. Ridley Hypercholesteremia GERD (gastroesophageal reflux disease) Stomach ulcer Crohn's disease Deafness in left ear Migraines Hypertension Surgical History History of esophagogastroduodenoscopy (EGD) History of colonoscopy S/P endometrial ablation History of tonsillectomy and adenoidectomy History of sinus surgery History of hysterectomy total abdominal hyster History of delivery Family History Father Heart disease Myocardial infarction Hypertension Aunt Crohn's disease Grandmother (Maternal) Cancer Grandfather (Maternal) Myocardial infarction Other No family history of adverse response to anesthesia No family history of bleeding disorder Denies family history of Ovarian cancer Prostate cancer Breast cancer Colorectal cancer Social History Smoking Status: Never smoker Tobacco Type: Cigarettes Second Hand Exposure: No; Do You Dip or Chew Tobacco: No; Hx Alcohol Use: No Hx Substance Use: No Preferred Language: [place] Communication Ability: Effective Skid Strapper Required: No Beliefs That Will Affect Care: None marital status: Current Living Situation: Spouse Current Living Situation Comment: Lives with and daughter current occupational status: employed current occupation: Registration at [employer] Feels Safe at Home: Yes Childhood Exposure to Second-Hand Smoke: No Dental Care, Regularly: Yes Physical Activity Frequency: 5-6 Times per Week Seatbelt Use: always Sunscreen Use: Yes Assistive Devices: None Review of Systems Review of Systems: Please refer to hospitalist notes for complete details. No additions or shantelle tions. Physical Exam Constitutional: no acute distress and not ill appearing Neck: trachea midline, no thyromegaly Respiratory: normal respiratory effort, lungs clear to auscultation Cardiovascular: Rate/Rhythm: + tachycardic Heart Sounds: normal S1 and normal S2; no murmur Extremities: no edema Gastrointestinal (Abdomen): normal bowel sounds, soft, nontender, no hepatosplenomegaly Musculoskeletal: Extremities: extremities normal to inspection Skin: no rashes, warm and dry Neurologic: Nonfocal exam Lymphatic: no cervical lymphadenopathy Results & Data Results & Data Vital Signs (Past 12 Hours) Vital Signs Temp Pulse Pulse Pulse Resp BP Pulse Ox 04/23/23 08:04 36.5 C 115 H 18 130/93 93 04/23/23 07:10 135 H 04/23/23 03:43 36.9 C 124 H 18 135/87 92 04/22/23 23:12 106 H O2 Del Method O2 Flow Rate 04/23/23 08:04 Nasal Cannula 2.0 04/23/23 07:10 04/23/23 03:43 Nasal Cannula 2.0 04/22/23 23:12 Critical Care Results & Data Vital Signs (Past 12 Hours) Vital Signs Temp Pulse Pulse Pulse Resp BP Pulse Ox 04/23/23 08:04 36.5 C 115 H 18 130/93 93 04/23/23 07:10 135 H 04/23/23 03:43 36.9 C 124 H 18 135/87 92 O2 Del Method O2 Flow Rate 04/23/23 08:04 Nasal Cannula 2.0 04/23/23 07:10 04/23/23 03:43 Nasal Cannula 2.0 Lab & Micro Results (Past 24 Hours) RBC 4.61 M/uL (4.20-5.40) 04/23/23 WBC 17.02 K/ul (4.8-10.8) H 04/23/23 Hgb 13.5 g/dl (12.0-16.0) 04/23/23 Hct 39.5 % (37.0-47.0) 04/23/23 MCV 85.7 fL (80.0-100.0) 04/23/23 MCH 29.3 pg (25.0-34.0) 04/23/23 MCHC 34.2 g/dL (32.0-36.0) 04/23/23 RDW Standard Deviation 49.1 fL (36.4-46.3) H 04/23/23 RDW Coefficient of Variation 15.8 % (11.5-14.5) H 04/23/23 Plt Count 193 K/uL (130-400) 04/23/23 MPV 11.1 fL (9.4-12.4) 04/23/23 Neutrophils (%) (Auto) 78.1 % 04/23/23 Lymphocytes (%) (Auto) 6.9 % 04/23/23 Monocytes # (Auto) 2.15 K/uL (0.11-0.59) H 04/23/23 Eosinophils # (Auto) 0.01 K/uL (0.00-0.50) 04/23/23 Immature Granulocyte % (Auto) 1.9 % 04/23/23 Neutrophils # (Auto) 13.30 K/uL (1.40-6.50) H 04/23/23 Lymphocytes # (Auto) 1.18 K/uL (1.20-3.40) L 04/23/23 Monocytes # (Auto) 2.15 K/uL (0.11-0.59) H 04/23/23 Eosinophils # (Auto) 0.01 K/uL (0.00-0.50) 04/23/23 Basophils # (Auto) 0.06 K/uL (0.00-0.20) 04/23/23 Immature Granulocyte # (Auto) 0.32 K/uL (0.01-0.20) H 04/23 Na 140 mmol/L (136-145) 04/23/23 K 2.8 mmol/L (3.5-5.1) L 04/23/23 Cl 107 mmol/L (98-107) 04/23/23 CO2 21 mmol/L (21-32) 04/23/23 Anion Gap 12 (3-11) H 04/23/23 BUN 9 mg/dl (6-23) 04/23/23 Creatinine 0.73 mg/dl (0.6-1.2) 04/23/23 Estimated GFR ( Amer) 109.7 ml/min 04/23/23 Estimated GFR (Non-Af Amer) 94.7 ml/min 04/23/23 BUN/Creatinine Ratio 12.3 (10-20) 04/23/23 Glu 127 mg/dl (70-99(Fasting)) H 04/23/23 Ca 8.3 mg/dl (8.6-10.3) L 04/23/23 Total Bilirubin 0.5 mg/dl (0.2-1.0) 04/23/23 AST 29 U/L (13-39) 04/23/23 ALT 27 U/L (7-52) 04/23/23 Alkaline Phosphatase 124 U/L (34-104) H 04/23/23 TP 6.0 gm/dl (6.0-8.3) 04/23/23 Albumin 2.9 gm/dl (3.4-5.0) L 04/23/23 Globulin 3.1 gm/dl (2.5-4.0) 04/23/23 Albumin/Globulin Ratio 0.9 (0.9-2) 04/23/23 Mg 1.9 mg/dl (1.7-2.4) 04/23/23 09:00 Calcium Level 8.3 mg/dl (8.6-10.3) L 04/23/23 09:00 Diagnostic Findings (Past 24 Hours) Chest X-Ray 04/22/23 11:58 SINGLE VIEW CHEST CLINICAL HISTORY: Sepsis FINDINGS: An AP, portable, upright chest radiograph is compared to study dated 04/20/2023. The cardiomediastinal silhouette is unremarkable. There is mild bibasilar atelectasis. The lungs and pleural spaces are otherwise clear. No pneumothorax is seen. The bony thorax is grossly intact. IMPRESSION: No active disease in the chest. ACT 112: Negative or not required by law. Electronically signed by: Ritchie Field M.D. 04/22/2023 12:37 PM Chest X-Ray 04/22/23 18:26 XR chest 1V portable HISTORY: Shortness of breath. COMPARISON: Chest 04/22/2023. FINDINGS: No pneumothorax. No pleural effusions. The cardiac silhouette is mildly enlarged. There are low lung volumes. There is progressive interstitial/vascular thickening consistent with mild pulmonary edema. Right medial lung base hazy airspace opacity is also new compared the prior study. This could represent a component of the pulmonary edema or a pneumonia. Prior cholecystectomy. No acute fractures. IMPRESSION: 1. Cardiomegaly with mild interstitial pulmonary edema. 2. There is a new right medial lung base hazy airspace opacity. This could represent a component of the pulmonary edema or a pneumonia. ACT 112: Negative or not required by law. Electronically signed by: Riaz Reynoso M.D. 04/22/2023 6:56 PM Chest X-Ray 04/23/23 08:33 SINGLE VIEW CHEST CLINICAL HISTORY: Hypoxic respiratory failure FINDINGS: An AP, portable, upright chest radiograph is compared to study dated 04/22/2023. The cardiomediastinal silhouette is top normal for projection. Bilateral interstitial and airspace opacities are similar to yesterday. No large pleural effusion or pneumothorax is seen. The bony thorax is grossly intact. Calcific tendinopathy is noted in the right shoulder. IMPRESSION: Interstitial and airspace opacities are similar to yesterday. The appearance favors pulmonary edema. Correlate clinical for evidence of a superimposed infectious/inflammatory pneumonitis. Radiographic follow-up to resolution is recommended. ACT 112: Negative or not required by law. Electronically signed by: Ritchie Field M.D. 04/23/2023 9:15 AM Chest CTA 04/23/23 09:23 CT ANGIOGRAM OF THE CHEST CLINICAL HISTORY: Acute hypoxic respiratory failure COMPARISON STUDY: Chest x-ray dated 04/23/2023. Chest CT dated 03/10/2021. TECHNIQUE: Following the IV administration of 70 cc of Optiray 320, CT angiogram of the chest was performed from the upper abdomen to the thoracic inlet utilizing the pulmonary embolus protocol. Images are reviewed in the axial, sagittal, and coronal planes. 3-D MIPS images are created and assessed. IV contrast was administered without complication. A dose lowering technique was utilized adhering to the principles of ALARA. The examination is degraded by motion artifact, as well as by streak artifact from the right arm which could not be elevated above the chest. CT DOSE: 484.83 mGy.cm FINDINGS: Thyroid: Imaged portions of the thyroid gland are normal in size and attenuation. Thoracic aorta: The thoracic aorta is normal in caliber and demonstrates standard 3-vessel arch anatomy. No dissection is seen. Pulmonary vasculature: The pulmonary trunk is normal in caliber. There are no filling defects identified in main, lobar, or segmental pulmonary branches to suggest pulmonary embolus. Heart: The heart is normal in size and without pericardial effusion. Lungs and pleural spaces: Evaluation of the lung parenchyma is moderately degraded by motion artifacts. Intralobular septal thickening is observed. The trachea and central airways are clear. There are bilateral ground glass opacities. There are small pleural effusions with dependent atelectasis. Mediastinum: There is no mediastinal lymphadenopathy. Clau: Clear. Axillae: There is no axillary lymphadenopathy. Upper abdomen: Cholecystectomy clips are noted. There are numerous bilateral nonobstructing calculi seen within the partially imaged kidneys. The largest is in the right upper pole and measures up to 11 mm. Skeletal structures: No lytic or blastic bony lesions are seen. IMPRESSION: 1. There is no evidence of pulmonary embolus in the main, lobar, or segmental pulmonary arteries. 2. There is evidence of congestive failure. 3. Bilateral airspace opacities likely represent pulmonary edema. Correlate clinically for evidence of a superimposed infectious/inflammatory pneumonitis. Radiographic follow-up to resolution is recommended. 4. Small pleural effusions. 5. Bilateral nephrolithiasis. 6. Additional findings as above. ACT 112: Negative or not required by law. Electronically signed by: Ritchie Field M.D. 04/23/2023 10:27 AM I & O Totals 24 Hours 04/22/23 04/23/23 04/24/23 06:59 06:59 06:59 Intake Total 5476.333 / 5476.333 199.000 / 199.000 Balance 5476.333 / 5476.333 199.000 / 199.000 Cumulative 04/22/23 08:14 thru 04/23/23 11:12 Intake Total 5675.333 Balance 5675.333 RT Ventilator Mngmt (Last Documented) Ventilator Ordered Settings Respiratory Rate 18 04/23/23 08:04 Ventilator - PT Measurements Respiratory Rate 18 PG Care Time/CCT Total # of Minutes Spent Total Time Spent with Patient: Total time spent is greater than 50% in coordination of care (as documented) at patient's floor/unit and/or counseling patient: Coding Level of Care Code 68796 IN/OBS CONSULT LVL 4,60M Diagnoses Acute respiratory failure with hypoxia J96.01 Pleural effusion J90 Sinus tachycardia R00.0 Renal abscess N15.1
[2023-04-23] MEDS: ENOXAPARIN INJ 40 MG/0.4 ML SYR SQ SCH (13:10)
--- NOTE | 2023-04-23 15:05 | XCELERA ---
[id number]
[2023-04-23] MEDS: POTASSIUM CHLORIDE CRTAB 20 MEQ TABCR PO SCH ×2 (16:11→20:35)
[2023-04-23] MEDS: FLUoxetine HCL 20 MG CAP PO SCH (20:35)
[2023-04-23] MEDS: FUROSEMIDE 40 MG/4 ML VIAL IV SCH (20:36)
[2023-04-24] MEDS: PANTOprazole 40 MG TAB PO SCH ×2 (05:57→08:41)
[2023-04-24] MEDS ORDERED: OPTIRAY 320 500ml IV ONE (07:18)
[2023-04-24 07:22] LABS: Basophils # (auto) 0.05 K/uL (0.00-0.20); Basophils % (auto) 0.4 %; Eosinophils # (auto) 0.03 K/uL (0.00-0.50); Eosinophils % (auto) 0.2 %; Hematocrit (blood only) 34.4 % (37.0-47.0); Hemoglobin 11.7 g/dl (12.0-16.0); Immature Granulocytes # (auto) 0.55 K/uL (0.01-0.20); Immature Granulocytes % (auto) 3.9 %; Lymphocytes # (auto) 1.11 K/uL (1.20-3.40); Lymphocytes % (auto) 7.8 %; Mean Corpuscular Hemoglobin 28.5 pg (25.0-34.0); Mean Corpuscular Volume 83.9 fL (80.0-100.0); Monocytes # (auto) 1.54 K/uL (0.11-0.59); Monocytes % (auto) 10.8 %; Neutrophils # (auto) 10.94 K/uL (1.40-6.50); Neutrophils % (auto) 76.9 %; Platelet Count 267 K/uL (130-400); RDW Coefficient of Variation 15.3 % (11.5-14.5); White Blood Count 14.22 K/ul (4.8-10.8)
--- NOTE | 2023-04-24 07:23 | XRay Report ---
TWO VIEW CHEST CLINICAL HISTORY: Pulmonary edema. FINDINGS: PA and lateral chest radiographs are compared to chest x-ray and chest CT dated 04/23/2023. The cardiomediastinal silhouette is unremarkable. Pulmonary edema has almost completely resolved. Sma ll pleural effusions are noted on the lateral projection. There is no pneumothorax. The bony thorax a ppears intact. Cholecystectomy clips are seen in the upper abdomen. IMPRESSION: 1. Pulmonary edema has almost completely resolved. 2. Small pleural effusions are noted on the lateral projection. ACT 112: Negative or not required by law. Electronically signed by: Ritchie Field M.D. 04/24/2023 7:22 AM
[2023-04-24 07:46] LABS: Albumin Globulin Ratio 0.9 (0.9-2); Albumin Level 3.1 gm/dl (3.4-5.0); BUN Creatinine Ratio 14.5 (10-20); Bilirubin,Total 0.6 mg/dl (0.2-1.0); Creatinine Clr Calc Pharmacy 68.6 ml/min; Est GFR (Non-African American) 81.1 ml/min; Globulin 3.5 gm/dl (2.5-4.0); Magnesium 1.6 mg/dl (1.7-2.4); Potassium 3.3 mmol/L (3.5-5.1); Total Protein 6.6 gm/dl (6.0-8.3)
[2023-04-24 08:16] LABS: Calcium 8.9 mg/dl (8.6-10.3)
[2023-04-24] MEDS: levETIRAcetam 500 MG TAB PO SCH ×2 (08:42→20:23)
[2023-04-24] MEDS: POTASSIUM CHLORIDE CRTAB 20 MEQ TABCR PO SCH ×2 (08:42→20:24)
[2023-04-24] MEDS: busPIRone 7.5 MG TAB PO SCH ×3 (08:42→20:23)
[2023-04-24] MEDS: FUROSEMIDE 40 MG/4 ML VIAL IV SCH (08:42)
--- NOTE | 2023-04-24 09:19 | Pulmonology Progress Note ---
Date of Service April 24, 2023 Assessment & Plan (1) Acute respiratory failure with hypoxia: (2) Pleural effusion: (3) Sinus tachycardia: (4) Renal abscess: Plan Impression: 53-year-old female without prior pulmonary history presenting with bilateral pyelonephritis. Urine culture is growing Klebsiella which appears to be pansensitive. Pulmonary was consulted for hypoxemic respiratory failure yesterday. The patient's hypoxemia has resolved completely with diuresis. BNP was elevated and echocardiogram shows reduced EF with wall motion abnormalities. Cardiology consultation is pending. She is chest pain-free. Recommendations: 1. Hypoxemia: Suspect fluid overload. Will try and keep I's and O's even although if the patient develops sepsis, additional crystalloid might be required. 2. Bilateral pleural effusions: Too small to sample currently and likely related to resuscitation fluid administration. Continue to follow for now. 3. Tachycardia with reduced ejection fraction and wall motion abnormalities. Agree with cardiology consultation. She is chest pain-free. Will obtain additional EKG and troponin at this point in time. 4. Pyelonephritis: Management per primary service Patient's pulmonary issues are resolved. Pulmonary will sign off. Feel free to contact us with questions or concerns. Above recommendations and plan were discussed with the patient and her significant other at bedside. Admission and Anticipated Discharge Date Admission Date: April 22, 2023 Subjective Patient seen and examined. EMR reviewed. Discussed with bedside nurse and with patient and spouse at bedside. Transfer was apparently discussed with tertiary [facility] and they did not feel that transfer was needed at this time according to the nurse. Patient's breathing is markedly better today. She received Lasix yesterday which resulted in about a 4 L diuresis. She is now off oxygen. She is no longer complaining of heaviness in her chest. Her BNP was elevated and echocardiogram showed depressed ejection fraction with multiple wall motion abnormalities. The patient did note some intermittent chest pressure which is now resolved. She states she had a cardiac evaluation several years ago although she is unclear what that showed. No history of coronary disease that she is aware of. She has not been febrile. She remains tachycardic. She had a follow-up CT of her abdomen performed this morning. She is not complaining of any abdominal pain, nausea, or vomiting. Review of Systems 2 Review of Systems: All systems reviewed & are unremarkable except as noted in Subjective Physical Exam 2 Constitutional: no acute distress and not ill appearing Neck: trachea midline, no thyromegaly Respiratory: normal respiratory effort, lungs clear to auscultation Cardiovascular: Rate/Rhythm: + tachycardic Heart Sounds: normal S1 and normal S2; no murmur Extremities: no edema Gastrointestinal (Abdomen): normal bowel sounds, soft, nontender, no hepatosplenomegaly Musculoskeletal: Extremities: extremities normal to inspection Skin: no rashes, warm and dry Lymphatic: no cervical lymphadenopathy Results & Data Results & Data Vital Signs (Past 12 Hours) Vital Signs Temp Pulse Pulse Pulse Resp BP Pulse Ox 04/24/23 08:01 36.4 C L 123 H 17 121/70 97 04/24/23 08:00 118 H 04/24/23 03:26 36.7 C 109 H 16 122/87 95 04/23/23 23:17 36.6 C 93 H 18 119/86 97 04/23/23 23:04 94 H 04/23/23 21:32 O2 Del Method 04/24/23 08:01 Room Air 04/24/23 08:00 04/24/23 03:26 Room Air 04/23/23 23:17 Room Air 04/23/23 23:04 04/23/23 21:32 Room Air Laboratory Results 04/24/23 06:54 04/24/23 06:[address] of the abdomen pending Echocardiogram yesterday showed an EF of 35 to 40% with no thrombus. There were multiple wall motion abnormalities are. See collapsibility. PG Care Time/CCT Total # of Minutes Spent Total Time Spent with Patient: Total time spent is greater than 50% in coordination of care (as documented) at patient's floor/unit and/or counseling patient: Coding Level of Care Code 68572 SUB INP/OBS CARE 2/35MIN Diagnoses Acute respiratory failure with hypoxia J96.01 Pleural effusion J90 Sinus tachycardia R00.0 Renal abscess N15.1
[2023-04-24] MEDS: MAGNESIUM OXIDE 400 MG TAB PO SCH ×2 (10:11→20:23)
[2023-04-24] MEDS: cefTRIAXone SODIUM 2,000 MG in DEXTROSE 5 % MINI-B 50 ML IV SCH (10:12)
[2023-04-24] MEDS: CIPROFLOXACIN / D5W 400 MG/200 ML BAG IV SCH ×2 (10:13→21:45)
[2023-04-24] MEDS: ONDANSETRON INJ 2 MG/ML 2 ML VIAL IV PRN ×2 (10:20→21:45)
--- NOTE | 2023-04-24 11:58 | CT Scan Report ---
CT SCAN OF THE ABDOMEN AND PELVIS WITH IV CONTRAST CLINICAL HISTORY: Follow-up pyelonephritis COMPARISON STUDY: Abdominal CT dated 04/22/2023. TECHNIQUE: Following the IV administration of 90 cc of Optiray 320, CT scan of the abdomen and pelvi s is performed from the lung bases to the proximal femora. Images are reviewed in the axial, sagittal , and coronal planes. IV contrast was administered without complication. A dose lowering technique wa s utilized adhering to the principles of ALARA. CT DOSE: 741.28 mGy.cm FINDINGS: Lung bases: The heart is normal in size and without pericardial effusion. There are small pleural eff usions, left larger than right with dependent atelectasis. Liver: The contrast-enhanced liver is normal in size, contour, and attenuation. Fatty infiltration is seen adjacent to the falciform ligament. There is no intrahepatic biliary ductal dilatation. The hep atic veins and portal veins are patent. Gallbladder: Surgically absent noting clips in the gallbladder fossa. Spleen: Normal in size and attenuation. Pancreas: Unremarkable. Adrenal glands: Unremarkable. Kidneys: The contrast enhanced kidneys are normal in size and without hydronephrosis. Urothelial thic kening and enhancement is again seen involving the right ureter. A developing multiloculated fluid co llection/phlegmonous change within the interpolar right kidney is similar in appearance to the 024 examination. The fluid component has likely modest increased. This measures 4.6 x 4.2 x 3.2 cm as seen on image #129. There is heterogeneous enhancement of both kidneys, right greater than left. Thi s appears modestly improved from 04/22/2023. A region of There are numerous bilateral nonobstructing r enal calculi which measure up to 11 mm. A 4.3 cm cyst is noted in the left kidney. A 1.8 cm cyst is n oted on the right. Right-sided perinephric stranding and fluid is modestly improved. Abdominal vasculature: The abdominal aorta is normal in course and caliber noting scattered foci of a therosclerotic calcification. Bowel: There is no bowel obstruction. The appendix is not clearly visualized. Peritoneum: There is no intraperitoneal free air or abdominal ascites. Lymphadenopathy: None. Pelvic viscera: The bladder is decompressed around a Fierro catheter. Intraluminal gas is likely relat ed to instrumentation. The uterus is surgically absent. No adnexal lesion is seen. Skeletal structures: No lytic or blastic lesions are seen. IMPRESSION: 1. Again seen is heterogeneous enhancement of both kidneys, right greater than left with urothelial t hickening and enhancement of the right ureter. This appears modestly improved from 04/22/2023 and like ly represents bilateral pyelonephritis. 2. Phlegmonous change/a developing multiloculated fluid collection in the interpolar right kidney is similar to the 04/22/2023 examination. The internal low-attenuation/fluid components appear somewhat i ncreased from previous. This likely represents a developing abscess. No drainable collection is seen at this time. 3. Bilateral nephrolithiasis. 4. Right-sided perinephric stranding and fluid has modestly improved. 5. Small pleural effusions. 6. Additional findings as above. ACT 112: Negative or not required by law. Electronically signed by: Ritchie Field M.D. 04/24/2023 11:56 AM
--- NOTE | 2023-04-24 12:33 | Urology Progress Note ---
Date of Service April 24, 2023 Assessment & Plan (1) Pyelonephritis: (2) UTI due to Klebsiella species: (3) Nephrolithiasis: (4) Flank pain: Plan Repeat CT imaging was reviewed interpreted by myself. Discussed extensively with patient. At this point patient does appear to have a large renal abscess. Due to size with me criteria for percutaneous drainage. Would need referred to a center with interventional radiology in order to undergo procedure. Will require likely a long course of IV antibiotics for complete management of infection including the percutaneous drainage. Patient does have stone disease does not appear to have any major obstructions with the stones. Has been dealing with issues related to respiratory system. Has had increased effort. Has been dealing with tachycardia as well. Is undergoing management with fluids as well as IV antibiotics. Likely some degree of fluid overload. Patient has been undergoing diuresis. Has tolerated without major issue. Clinically patient is stable. Respiratory issues have drastically improved. However concern is that the increasing size of fluid collection within the likely renal abscess will need intervention. Will likely also need extensive course of antibiotics possibly long course of IV antibiotics for full treatment. May need to consider PICC line or other temporary IV line in order to facilitate the antibiotics in anticipation of outpatient management. Plan for continued supportive care and IV antibiotics. Will likely need prolonged course of IV antibiotics for full clearing. Recommend assessment for percutaneous drainage at outlying facility with interventional radiology due to large size of abscess and currently measuring 4.6 cm with increasing fluid collection. Admission and Anticipated Discharge Date Admission Date: April 22, 2023 Subjective Patient admitted with renal abscess and pyelonephritis. Patient is afebrile. Has been experiencing worsening respiratory issues. Has been undergoing supportive therapy with oral medications, IV medications, IV fluids, and oral intake. Is stable from kidney standpoint with no signs of major obstruction but has been dealing with worsening respiratory issues. No major increase in discomfort on flank without considerable increase in pain or major issues. Has not developed severe vomiting or other issues. Has not experienced fever or chills. Has been tolerating oral medications. Is tolerating fluids. Has noticed some frequency and urgency. Has not had severe pain in the back and flank. Does have occasional burning and irritation. No severe episodes or major changes. Has not passed a large amount of blood or debris Review of Systems Review of Systems: All systems reviewed & are unremarkable except as noted in HPI & below Physical Exam Physical Exam: General: Alert in no acute distress. HEENT: Normocephalic Atraumatic. Inspection normal. Cranial Nerves 2-12 Grossly intact. Normal inspection of face. Normal inspection of neck. Psychologic: Normal affect. Respiratory: Increasing respiratory effort. Mildly labored. No use of accessory muscles. No tachypnea or dyspnea. Cardiovascular: No tachycardia Skin: Gould and Dry. No rashes or visible lesions. Extremities/Lymphatics: No edema Abdomen: Soft Non-distended. No rebound or guarding. Results & Data Vital Signs (Past 12 Hours) Vital Signs Temp Pulse Pulse Pulse Resp BP Pulse Ox 04/24/23 11:34 36.9 C 113 H 17 117/84 97 04/24/23 08:01 36.4 C L 123 H 17 121/70 97 04/24/23 08:00 118 H 04/24/23 03:26 36.7 C 109 H 16 122/87 95 O2 Del Method 04/24/23 11:34 Room Air 04/24/23 08:01 Room Air 04/24/23 08:00 04/24/23 03:26 Room Air PG Care Time/CCT Total # of Minutes Spent Total Time Spent with Patient: Total time spent is greater than 50% in coordination of care (as documented) at patient's floor/unit and/or counseling patient: Coding Level of Care Code 32626 SUB INP/OBS CARE 3/50MIN Diagnoses Pyelonephritis N12 UTI due to Klebsiella species N39.0; B96.89 Nephrolithiasis N20.0 Flank pain R10.9
--- NOTE | 2023-04-24 12:34 | Hospitalist Progress Note ---
Date of Service April 24, 2023 Assessment & Plan (1) ARDS (adult respiratory distress syndrome): Plan: Fortunately ruled out (2) Acute respiratory failure with hypoxia: Plan: Resolved with diuresis. She is now on room air (3) Acute systolic CHF (congestive heart failure): Plan: Now resolved. Cardiac echo surprisingly revealed ejection fraction of 35% with regional wall motion abnormalities. She has no previous cardiac history however. Cardiology consultation requested and pending (4) Sepsis: Plan: Present on admission. She is now on Rocephin and ciprofloxacin. Known Klebsiella UTI associated with bilateral pyelonephritis and right renal phlegmon (5) Pyelonephritis: Plan: Suspected bilaterally on CT scan. Development of right renal phlegmon is evident on CT scan. Drainage procedure may become necessary but there is no drainable abscess on CT scan that was completed today, April 24.. Urology consultation and recommendations appreciated (6) UTI due to Klebsiella species: Plan: Continue Rocephin and ciprofloxacin (7) Sinus tachycardia: Plan: Improved but persistent. Free T4 level is slightly elevated which may be playing a role. This probably will need further outpatient evaluation. Heart rate was considerably tachycardic for a while when she developed pulmonary edema from IV fluids administered in the ED. Telemetry. (8) Hypokalemia: Plan: Parenteral replacement has been switched to oral replacement. Serial labs (9) History of seizure: Plan: Stable. Continue Keppra (10) Essential hypertension: Plan: Lisinopril was held on admission and will be restarted with known ejection fraction of 35%. Plan Continue IV antibiotics. Await cardiology evaluation. Appreciate urology consultation and recommendations. Admission and Anticipated Discharge Date Admission Date: April 22, 2023 Subjective Alert and oriented. She had a brisk diuresis with IV Lasix. Pulmonary edema has resolved and she is now on room air. Cardiology consultation requested to evaluate her ejection fraction of 35% with regional wall motion abnormalities which is somewhat of a surprise considering her lack of cardiac history. White blood cell count is trending down now. Repeat CT of the abdomen and pelvis looks about the same. No drainable abscess. Potassium corrected to 3.3 and improving. Continue oral potassium replacement. Fortunately, blood cultures remain negative. Oral magnesium replacement ordered. She remains on parenteral Rocephin and ciprofloxacin for now. Chest CTA was obtained and negative for PE. Review of Systems 2 Review of Systems: Constitutional-no fever or chills ENT-no blurred vision, no double vision, no epistaxis, no sore throat Respiratory-no cough, no wheezing. Shortness of breath developed last evening Cardiac-no palpitations, no chest pain, no syncope GI-no nausea, vomiting, diarrhea, melena, hematochezia -no urinary retention, no urinary incontinence, no dysuria, no hematuria. Right flank discomfort Musculoskeletal-no joint pain, no muscle tenderness Skin-no bruising, no rashes, no pruritus Neuro-no isolated weakness, no paresthesia Psych-no depression, no anxiety Physical Exam 2 Physical Exam: General-alert and oriented x3, intermittent low-grade fever. She denies chills HEENT-head atraumatic and normocephalic, pupils equal and reactive to light, extraocular muscles intact Neck-no lymphadenopathy or thyromegaly, trachea midline Chest-clear to auscultation. No rhonchi no wheezing Cardiac-slightly tachycardic regular rhythm. Normal S1 and S2 Abdomen-normal bowel sounds, nontender, no hepatosplenomegaly Extremities-no cyanosis, clubbing, or edema Neuro-cranial nerves II through XII intact, motor and sensory function within normal limits, strength symmetrical, no focal deficits Psych-normal affect, normal mood Results & Data Results & Data Vital Signs (Past 12 Hours) Vital Signs Temp Pulse Pulse Pulse Resp BP Pulse Ox 04/24/23 11:34 36.9 C 113 H 17 117/84 97 04/24/23 08:01 36.4 C L 123 H 17 121/70 97 04/24/23 08:00 118 H 04/24/23 03:26 36.7 C 109 H 16 122/87 95 O2 Del Method 04/24/23 11:34 Room Air 04/24/23 08:01 Room Air 04/24/23 08:00 04/24/23 03:26 Room Air Laboratory Results 04/24/23 06:54 04/24/23 06:54 PG Care Time/CCT Total # of Minutes Spent Total Time Spent with Patient: Total time spent is greater than 50% in coordination of care (as documented) at patient's floor/unit and/or counseling patient: Coding Level of Care Code 34095 SUB INP/OBS CARE 3/50MIN Diagnoses ARDS (adult respiratory distress syndrome) J80 Acute respiratory failure with hypoxia J96.01 Acute systolic CHF (congestive heart failure) I50.21 Sepsis A41.9 Pyelonephritis N12 UTI due to Klebsiella species N39.0; B96.89 Sinus tachycardia R00.0 Hypokalemia E87.6 History of seizure Z87.898 Essential hypertension I10
--- NOTE | 2023-04-24 13:17 | Cardiology Consultation ---
Date of Consultation April 24, 2023 Assessment & Plan (1) Cardiomyopathy: (2) Tachycardia: (3) Essential hypertension: (4) Elevated troponin: Plan 1. Cardiomyopathy: She has a newly diagnosed cardiomyopathy, on echocardiography about 2 years ago this finding was not present. She does have wall motion abnormalities and an elevated troponin. This suggests that it is acute, I suspect it is not ischemic but I would continue to trend troponins and it may be related to sepsis or perhaps even tachycardia. I would treat it with typical heart failure medications for now, especially beta-blockade given her tachycardia, which she is on now and I would titrate fairly quickly to get her heart rate under control. I would send the standard tests for nonischemic cardiomyopathy. We may need to evaluate her for ischemia but I would not do that with her current illness as this is not an acute myocardial infarction. In the future some type of stress testing or catheterization may well be indicated. 2. Tachycardia: Her tachycardia appears to be sinus tachycardia although it is quite fast and sustained but with a fair amount of variation, and she has had that in the past. Hopefully on beta-blockade her heart rate will be better controlled without dropping her blood pressure too much. It would be a good idea to control her tachycardia, at least at rest, if possible. 3. Hypertension: She has a history of hypertension and has been on lisinopril recently. She has had quite labile blood pressure for a number of years with high readings at times. This could be due to catecholamines and beta-blockade may be the best treatment, certainly currently we need to do that with her cardiomyopathy. 4. Elevated troponin: Her troponin is not terribly high and I suspect is related to her sepsis and high heart rate not due to large coronary vessel disease. We may have to investigate this further depending on how things progress over the next few days. History of Present Illness Reason for Consultation: Cardiomyopathy Attending Physician: Darryl Epstein MD History of Present Illness This is a 53-year-old woman who has a history of hypertension, hyperlipidemia and some GI issues. She began to have difficulty with upper respiratory symptoms and did come in the emergency room April 20, 2023 however at that time the upper respiratory symptoms were resolving and she had GI symptoms and was sent home. She returned however on April 22, 2023 with flank pain and was admitted with sepsis, likely urosepsis,. She was noted to have a markedly elevated heart rate which was quite sustained. An echocardiogram was done on April 23, 2023 and this showed a normal left ventricular size with mild concentric left ventricular hypertrophy and ejection fraction of 35 to 40%. There were wall motion abnormalities. She did have an echocardiogram performed April 09, 2021 where her left ventricular size and function were normal and she had mild mitral regurgitation. Electrocardiography at that time interestingly showed a rapid rate of 133 bpm, suggestive of sinus tachycardia but very similar to today. Laboratory studies were notable for a markedly elevated white count, and elevated BNP on April 23 2023 and a normal high sensitive troponin on April 22, 2023 but elevated to 392 on April 24, 2023 at 0936. She was fluid overloaded (possibly in part due to hydration) and she was diuresed and feels better now. Prior to admission she tells me that she has had some shortness of breath with exertion for several months, although no other heart failure symptoms. She did not have exertional chest discomfort. Allergies Allergy/AdvReac Type Severity Reaction Status Date / Time No Known Allergies Allergy Verified 04/22/23 11:26 Home Medications Medication Instructions Recorded Confirmed Type flaxseed oil 1,000 mg capsule 1,000 mg PO QAM 07/20/19 04/22/23 History sennosides 8.6 mg-docusate sodium 1 tab PO QPM 07/20/19 04/22/23 History 50 mg tablet omega 3-uct-kzj-fish oil 1,000 mg 1 cap PO QAM 03/10/21 04/22/23 History (120 mg-180 mg) capsule (Fish Oil) lisinopril 5 mg tablet See Rx Instructions .Route .COMPLEX 10/29/22 04/22/23 History levetiracetam 500 mg tablet 500 mg PO BID #180 tabs 11/30/22 04/22/23 Rx (Keppra) pravastatin 20 mg tablet 20 mg PO QAM #90 tabs 02/21/23 04/22/23 Rx semaglutide (weight loss) 0.25 0.25 - 0.5 mg (0.5 - 1 mL) subcut 02/21/23 04/22/23 Rx mg/0.5 mL subcutaneous pen injector Q7D #2 mL buspirone 7.5 mg tablet 7.5 mg PO TID #270 tabs 02/28/23 04/22/23 Rx lorazepam 0.5 mg tablet 0.25 - 0.5 mg (0.5 - 1 x 0.5 mg) 03/29/23 04/22/23 Rx PO DAILY PRN Anxiety #30 tabs fluoxetine 40 mg capsule 40 mg PO HS #90 caps 04/18/23 04/22/23 Rx nitrofurantoin 100 mg PO Q12H 5 days #10 caps 04/19/23 04/22/23 Rx monohydrate/macrocrystals 100 mg capsule dicyclomine 20 mg tablet 20 mg PO BID PRN ABD PAIN 04/20/23 04/22/23 History ondansetron HCl 4 mg tablet 4 mg PO TID PRN nausea and 04/20/23 04/22/23 Rx vomiting 5 days #15 tabs pantoprazole 40 mg tablet,delayed 40 mg PO BID 04/20/23 04/22/23 History release Patient History Medical History Hypercholesterolemia with LDL greater than 190 mg/dL Overweight (BMI 25.0-29.9) History of seizure last 2020, unsure what type? grand mal--on keppra--follows with [facility] Dr. Ridley Hypercholesteremia GERD (gastroesophageal reflux disease) Stomach ulcer Crohn's disease Deafness in left ear Migraines Hypertension Surgical History History of esophagogastroduodenoscopy (EGD) History of colonoscopy S/P endometrial ablation History of tonsillectomy and adenoidectomy History of sinus surgery History of hysterectomy total abdominal hyster History of delivery Family History Father Heart disease Myocardial infarction Hypertension Aunt Crohn's disease Grandmother (Maternal) Cancer Grandfather (Maternal) Myocardial infarction Other No family history of adverse response to anesthesia No family history of bleeding disorder Denies family history of Ovarian cancer Prostate cancer Breast cancer Colorectal cancer Social History Smoking Status: Never smoker Tobacco Type: Cigarettes Second Hand Exposure: No; Do You Dip or Chew Tobacco: No; Hx Alcohol Use: No Hx Substance Use: No Preferred Language: Irish Communication Ability: Effective Paint Laboratory Technician Required: No Beliefs That Will Affect Care: None marital status: Current Living Situation: Spouse Current Living Situation Comment: Lives with and daughter current occupational status: employed current occupation: Registration at [employer] Feels Safe at Home: Yes Childhood Exposure to Second-Hand Smoke: No Dental Care, Regularly: Yes Physical Activity Frequency: 5-6 Times per Week Seatbelt Use: always Sunscreen Use: Yes Assistive Devices: None Physical Exam Physical Exam: Constitutional: Alert, cooperative and in no distress. She is resting in bed. HEENT: Unremarkable Neck: No jugular venous distention, carotid pulses are normal and equal bilaterally without bruits. Pulmonary: Clear to auscultation bilaterally. Cardiac: Regular somewhat rapid rhythm with no murmur, gallop or rub. Abdomen: Soft, nontender with normal bowel sounds. Extremities: No edema. Distal pulses intact. Neurologic: No focal findings. Skin: No rash, ecchymoses or petechiae. Results & Data Vital Signs (Past 12 Hours) Vital Signs Temp Pulse Pulse Pulse Resp BP Pulse Ox 04/24/23 11:34 36.9 C 113 H 17 117/84 97 04/24/23 08:01 36.4 C L 123 H 17 121/70 97 04/24/23 08:00 118 H 04/24/23 03:26 36.7 C 109 H 16 122/87 95 O2 Del Method 04/24/23 11:34 Room Air 04/24/23 08:01 Room Air 04/24/23 08:00 04/24/23 03:26 Room Air Laboratory Results Cardiac Enzymes 04/24/23 04/24/23 Range/Units 06:54 09:36 AST 22 (13-39) U/L Troponin I High Sens 392.5 H* (0-14) pg/ml CBC 04/24/23 Range/Units 06:54 WBC 14.22 H (4.8-10.8) K/ul RBC 4.10 L (4.20-5.40) M/uL Hgb 11.7 L (12.0-16.0) g/dl Hct 34.4 L (37.0-47.0) % Plt Count 267 (130-400) K/uL Neut # (Auto) 10.94 H (1.40-6.50) K/uL Lymph # (Auto) 1.11 L (1.20-3.40) K/uL [place] # (Auto) 1.54 H (0.11-0.59) K/uL Eos # (Auto) 0.03 (0.00-0.50) K/uL Baso # (Auto) 0.05 (0.00-0.20) K/uL Comprehensive Metabolic Panel 04/23/23 04/24/23 Range/Units 15:45 06:54 Sodium 136 (136-145) mmol/L Potassium 3.1 L 3.3 L (3.5-5.1) mmol/L Chloride 98 (98-107) mmol/L Carbon Dioxide 29 (21-32) mmol/L BUN 12 (6-23) mg/dl Creatinine 0.83 (0.6-1.2) mg/dl Glucose 138 H (70-99(Fasting)) mg/dl Calcium 8.9 (8.6-10.3) mg/dl AST 22 (13-39) U/L ALT 26 (7-52) U/L Alkaline Phosphatase 120 H (34-104) U/L Total Protein 6.6 (6.0-8.3) gm/dl Albumin 3.1 L (3.4-5.0) gm/dl Intake and Output 04/23/23 04/24/23 04/24/23 22:59 06:59 14:59 Intake Total 840 / 2765.667 600 / 2765.667 250 / 250 Output Total 2300 / 6650 950 / 6650 2450 / 2450 Balance -1460 / -3884.333 -350 / -3884.333 -2200 / -2200 Intake: IV 290 / 1275.667 300 / 1275.667 250 / 250 Ciprofloxacin / D5w 400 mg In 200 / 400 200 / 200 200 ml @ 100 mls/hr IV Q12H JONATHAN Rx#:[id number] Potassium Chloride / Wtr 10 meq 290 / 390 100 / 390 In 100 ml @ 100 mls/hr IV Q1H JONATHAN Rx#:[id number] cefTRIAXone SODIUM 2,000 mg In 50 / 50 Dextrose 5 % Mini-B 50 ml @ 100 mls/hr IV Q24H JONATHAN Rx#: [id number] Oral 550 / 1490 300 / 1490 Output: Urine Amount (Catheter) 2300 / 6650 950 / 6650 2450 / 2450 [place]/Indwelling 2300 / 6650 950 / 6650 2450 / 2450 Other: Weight 61.9 kg Weight Measurement Method Standing Scale PG Care Time/CCT Total # of Minutes Spent Total Time Spent with Patient: Total time spent is greater than 50% in coordination of care (as documented) at patient's floor/unit and/or counseling patient: Coding Level of Care Code 52543 INT INP/OBS CARE 2/55MIN Diagnoses Cardiomyopathy, unspecified type I42.9 Cardiomyopathy type: unspecified Tachycardia R00.0 Essential hypertension I10 Elevated troponin R79.89 (1) Cardiomyopathy Cardiomyopathy type: unspecified Qualified Code(s): I42.9 - Cardiomyopathy, unspecified
[2023-04-24] MEDS: METOPROLOL TARTRATE 25 MG TAB PO SCH ×2 (13:21→20:24)
[2023-04-24] MEDS: ENOXAPARIN INJ 40 MG/0.4 ML SYR SQ SCH (13:21)
[2023-04-24] MEDS: lisinopril 10 MG TAB PO SCH (13:21)
--- NOTE | 2023-04-24 13:59 | Discharge Summary ---
Date of Service April 24, 2023 Admission HPI Per Admitting Provider Odalys is a 53 year old female with a PMH significant for Chron's disease, hx of seizure (on Keppra), GERD, HTN, anxiety who presented to the [facility] ED on 04/22/23 with complaints of worsening UTI symptoms with associated nausea, vomiting, and right flank pain. Per the ED staff, the patient was diagnosed with a UTI by her PCP on 04/19/23 and was prescribed a course of Macrobid. She presented to the [facility] ED on 04/20/23 with uncontrolled nausea and vomiting. CT of the abd/pelvis wo con was obtained and was negative for signs of Nephrolithiasis or signs of obstruction. She was given 1L NSS and a dose of zofran and di scharged home to continue her home course of Macrobid. Unfortunately her nausea and vomiting continued and she has been unable to successful take her oral antibiotic at home. In the ED she was noted to be tachycardic with a HR of 127 but otherwise stable. Labs were significant for a leukocytosis of 15 with neutrophil predominance of 13, potassium of 3.1, alk phos of 113. Ct of the abd/pelvis w/IV con was read as "1. Findings consistent with acute right pyelonephritis. Multiple hypoenhancing foci within the right kidney, including a 4.8 x 3.8 x 3 cm mid to lower pole focus which contains multiple small fluid components. This is suggestive of phlegmon with developing abscess formation. No drainable fluid collection at this time. Right perinephric stranding and fluid. Urothelial thickening of the right ureter consistent with pyelitis. 2. Subtle hypoenhancing foci within the left kidney suggestive of acute pyelonephritis. 3. Bilateral nephrolithiasis. No ureteral calculi. No hydronephrosis.". Prior to admission the patient was given 1L NSS, 2gm Ceftriaxone, 10 meq IV KCL, and ordered another 500 mL NSS bolus to complete her sepsis fluid bolus of 1500 mL based on ideal body weight. At the time of the exam the patient was lying in bed in no acute distress, she is ill appearing. She and her confirm the above history. She states that she has been unable to keep food or medications consistently down over the past 48 hours. She was able to take her HS medications last night which included her Keppra and lisinopril. She and her state that her urine looks closer to normal today compared to 04/20 when she was in the ED. Her abdominal discomfort started in the suprapubic region and progressed to the right flank over the past 48 hours. She states that she was having chills and shaking approximately 30 min prior to my exam. She is on Ozempic for weight loss but has not had a dose in a month as it is out of stock. She is a full code. Please refer to Dr. Collier's attestation for any changes to the treatment plan Principal Diagnosis Bilateral pyelonephritis with right renal abscess, Klebsiella UTI, acute systolic CHF Discharge Exam General-alert and oriented x3, intermittent low-grade fever. She denies chills HEENT-head atraumatic and normocephalic, pupils equal and reactive to light, extraocular muscles intact Neck-no lymphadenopathy or thyromegaly, trachea midline Chest-clear to auscultation. No rhonchi no wheezing Cardiac-slightly tachycardic regular rhythm. Normal S1 and S2 Abdomen-normal bowel sounds, nontender, no hepatosplenomegaly Extremities-no cyanosis, clubbing, or edema Neuro-cranial nerves II through XII intact, motor and sensory function within normal limits, strength symmetrical, no focal deficits Psych-normal affect, normal mood Discharge Data Allergies Allergy/AdvReac Type Severity Reaction Status Date / Time No Known Allergies Allergy Verified 04/22/23 11:26 Consultations 04/22/23 11:14 ED Decision to Admit Stat 04/22/23 11:56 Consult Urology Routine 04/23/23 09:51 Consult Pulmonology Routine 04/24/23 09:07 Consult Cardiology Routine Ordered Studies 04/22/23 08:43 CT abd pelvis IV con only Stat 04/23/23 09:23 CT angio chest PE protocol Stat 04/24/23 07:00 CT abd pelvis IV con only DAILY Hospital Course (1) ARDS (adult respiratory distress syndrome): Fortunately ruled out (2) Acute respiratory failure with hypoxia: Resolved with diuresis. She is now on room air (3) Acute systolic CHF (congestive heart failure): Now resolved. Cardiac echo surprisingly revealed ejection fraction of 35% with regional wall motion abnormalities. She has no previous cardiac history however. Cardiology consultation appreciated. Hopefully this is not ischemic. She certainly has not had an acute OH. She will undergo further cardiac testing as an outpatient. (4) Sepsis: Present on admission. She is now on Rocephin and ciprofloxacin. Known Kle bsiella UTI associated with bilateral pyelonephritis and right renal phlegmon (5) Pyelonephritis: Suspected bilaterally on CT scan. Development of right renal phlegmon is ev ident on CT scan. Drainage procedure of the right kidney appears to be necessary per urology. She will be transferred to [facility] for continued care and intervention. Urology consultation and recommendations appreciated (6) UTI due to Klebsiella species: Continue Rocephin and ciprofloxacin (7) Sinus tachycardia: Improved but persistent. Free T4 level is slightly elevated which may be playing a role. She is now on metoprolol. Cardiology consultation appreciated. Telemetry. (8) Hypokalemia: Parenteral replacement has been switched to oral replacement. Serial labs (9) History of seizure: Stable. Continue Keppra (10) Essential hypertension: Lisinopril was held on admission and has been restarted along with metoprolol for tachycardia and known ejection fraction of 35%. Plan Continue IV antibiotics. Transfer to [facility] for further management Total Time Total Time Spent Total Time Spent (In Minutes): 45 minutes Discharge Plan Discharge Items Patient Disposition: Transfer Acute Care Hospital Reason For Visit: SEPSIS, BL PYLENONEPHRITIS, HYPOKALEMIA Discharge Diagnosis: Bilateral pyelonephritis, right renal abscess, acute systolic CHF, transient acute hypoxic respiratory failure, hypokalemia, Klebsiella UTI Activity: Resume your previous activity Non-emergency contact: Primary Care Provider Call non-emergency contact if: your symptoms worsen Follow-up/Referrals: Caprice Clayton MD [Primary Care Provider] - Diet: Regular and Heart Healthy Addtl Attending Provider Instructions: See urology and primary care provider as soon as possible after discharge from [facility] Pending Studies at Discharge: No Stand-Alone Forms: My [facility] Skilled Items Patient informed of condition?: Yes DNR: No Discharge Level of Care: Other Communicable Disease: No Discharge Prognosis: Stable Lines: Peripheral IV Urinary Catheter: No Medications and DC Order Prescriptions: New enoxaparin [Lovenox] 40 mg/0.4 mL Syringe 40 mg subcut Q24H Qty: 0 0RF lisinopril 10 mg Tablet 10 mg PO QAM Qty: 0 0RF metoprolol tartrate 25 mg Tablet 25 mg PO BID Qty: 0 0RF ondansetron HCl (PF) 4 mg/2 mL Solution 4 mg IV Q4H PRNQty: 0 0RF morphine 4 mg/mL Syringe 2 mg IV Q4H PRNQty: 0 0RF potassium chloride 20 mEq Tablet,Er Particles/Crystals 20 meq PO BID Qty: 0 0RF magnesium oxide 400 mg (241.3 mg magnesium) Tablet 400 mg PO BID Qty: 0 0RF Continued levetiracetam [Keppra] 500 mg tablet 500 mg PO BID Qty: 180 1RF buspirone 7.5 mg tablet 7.5 mg PO TID Qty: 270 3RF lorazepam 0.5 mg tablet 0.25 - 0.5 mg PO DAILY PRN (Reason: Anxiety) Qty: 30 0RF Rx Instructions: Supervising Caprice Clayton MD NPI [id number] fluoxetine 40 mg capsule 40 mg PO HS Qty: 90 3RF flaxseed oil 1,000 mg capsule 1,000 mg PO QAM sennosides-docusate sodium 8.6-50 mg tablet 1 tab PO QPM pravastatin 20 mg tablet 20 mg PO QAM Qty: 90 3RF semaglutide (weight loss) 0.25 mg/0.5 mL pen injector 0.25 - 0.5 mg subcut Q7D Qty: 2 3RF Rx Instructions: PER PT "HAVEN'T HAD FOR 3-4 WKS, BACK ORDERED" Inject 0.25mg weekly for weeks 1-4, then 0.5mg weekly thereafter nitrofurantoin monohyd/m-cryst 100 mg capsule 100 mg PO Q12H 5 Days Qty: 10 0RF Rx Instructions: STARTED 04/19/23 FOR 5 DAYS. must administer with a meal/food omega 3-bvf-lyr-fish oil [Fish Oil] 1,000 mg (120 mg-180 mg) Capsule 1 cap PO QAM dicyclomine 20 mg tablet 20 mg PO BID PRN (Reason: ABD PAIN) Rx Instructions: TAKE 1 TABLET BY MOUTH TWICE DAILY NEEDED FOR ABDOMINAL PAIN pantoprazole 40 mg tablet,delayed release (DR/EC) 40 mg PO BID Rx Instructions: TAKE 30 MINUTES BEFORE BREAKFAST AND DINNER. ondansetron HCl 4 mg tablet 4 mg PO TID PRN (Reason: nausea and vomiting) 5 Days Qty: 15 0RF Discontinued lisinopril 5 mg tablet See Rx Instructions .ROUTE .COMPLEX Rx Instructions: TAKES 10 MG QAM, THEN 5 MG QPM. Discharge Orders: Discharge Order (Routine); Ordered 04/24/23 Ordered By: Darryl Epstein Admission Data Admit Date/Time: 04/22/23 11:35 Attending Provider: Darryl Epstein Admit Provider: Magnus Hanson Primary Care Provider: Caprice Clayton Other Providers: Karthik Collier; Ollie Juarez; Shayan Farias; Adam Swanson; Brenton Lee; Luis Sommer; Pia Buckley; Sonia Jauregui; Gab Navarro; Ricki Nelson; Tequila Schmitt; Bakari Torres; Deon Castellano; Ritchie Curiel; Delio Nguyen; Segundo Mejia; North Quiroz Jr; Russ Stack; Dania Buchanan; Kasandra Carmona; Ryan Pitt; Ryan Barnes; Darryl Orozco; Nancy Avendano; Kiarra Rudd; Dejon Brown; Cameron Davenport; Max Rivero Coding Level of Care Code 19488 INP/OBS DISCH >30 MIN Diagnoses ARDS (adult respiratory distress syndrome) J80 Acute respiratory failure with hypoxia J96.01 Acute systolic CHF (congestive heart failure) I50.21 Sepsis A41.9 Pyelonephritis N12 UTI due to Klebsiella species N39.0; B96.89 Sinus tachycardia R00.0 Hypokalemia E87.6 History of seizure Z87.898 Essential hypertension I10
--- NOTE | 2023-04-24 20:14 | Electrocardiogram Report ---
Test Reason : Blood Pressure : / mmHG Vent. Rate : 153 BPM Atrial Rate : 153 BPM P-R Int : 122 ms QRS Dur : 090 ms QT Int : 252 ms P-R-T Axes : 000 029 093 degrees QTc Int : 402 ms Sinus tachycardia Otherwise normal ECG When compared with ECG of 22-APR-2023 08:29, No significant change was found Confirmed by Segundo Mejia ([id number]) on 04/24/2023 8:14:15 PM Referred By: REFERRED SELF Confirmed By:Segundo Mejia
--- NOTE | 2023-04-24 20:15 | Electrocardiogram Report ---
Test Reason : Blood Pressure : / mmHG Vent. Rate : 146 BPM Atrial Rate : 146 BPM P-R Int : 120 ms QRS Dur : 086 ms QT Int : 284 ms P-R-T Axes : 058 011 044 degrees QTc Int : 442 ms Sinus tachycardia Nonspecific ST abnormality Otherwise normal ECG When compared with ECG of 22-APR-2023 11:16, (unconfirmed) No significant change Confirmed by Segundo Mejia ([id number]) on 04/24/2023 8:14:55 PM Referred By: REFERRED SELF Confirmed By:Segundo Mejia
[2023-04-24] MEDS: FLUoxetine HCL 20 MG CAP PO SCH (20:23)
[2023-04-25] MEDS: PANTOprazole 40 MG TAB PO SCH ×2 (06:11→16:54)
[2023-04-25] MEDS: METOPROLOL TARTRATE 25 MG TAB PO SCH (07:26)
[2023-04-25] MEDS: busPIRone 7.5 MG TAB PO SCH ×3 (07:26→20:30)
[2023-04-25] MEDS: MAGNESIUM OXIDE 400 MG TAB PO SCH ×2 (07:27→20:30)
[2023-04-25] MEDS: POTASSIUM CHLORIDE CRTAB 20 MEQ TABCR PO SCH ×2 (07:27→20:31)
[2023-04-25] MEDS: levETIRAcetam 500 MG TAB PO SCH ×2 (07:27→20:30)
[2023-04-25] MEDS: lisinopril 10 MG TAB PO SCH (07:27)
[2023-04-25 07:42] LABS: Basophils # (auto) 0.06 K/uL (0.00-0.20); Basophils % (auto) 0.5 %; Eosinophils # (auto) 0.04 K/uL (0.00-0.50); Eosinophils % (auto) 0.4 %; Hematocrit (blood only) 38.8 % (37.0-47.0); Immature Granulocytes # (auto) 0.54 K/uL (0.01-0.20); Immature Granulocytes % (auto) 4.8 %; Lymphocytes # (auto) 1.01 K/uL (1.20-3.40); Lymphocytes % (auto) 8.9 %; Mean Corpuscular Hemoglobin 28.1 pg (25.0-34.0); Mean Corpuscular Hgb Conc 33.5 g/dL (32.0-36.0); Mean Platelet Volume 10.8 fL (9.4-12.4); Monocytes # (auto) 1.39 K/uL (0.11-0.59); Monocytes % (auto) 12.3 %; Neutrophils # (auto) 8.29 K/uL (1.40-6.50); Neutrophils % (auto) 73.1 %; Platelet Count 253 K/uL (130-400); RDW Coefficient of Variation 15.1 % (11.5-14.5); RDW Standard Deviation 46.1 fL (36.4-46.3); Red Blood Count 4.62 M/uL (4.20-5.40); White Blood Count 11.33 K/ul (4.8-10.8)
[2023-04-25 07:54] LABS: BUN Creatinine Ratio 19.1 (10-20); Calcium 8.9 mg/dl (8.6-10.3); Creatinine Clr Calc Pharmacy 63.6 ml/min; Est GFR (African American) 86.4 ml/min; Est GFR (Non-African American) 74.5 ml/min; Magnesium 1.9 mg/dl (1.7-2.4); Potassium 3.6 mmol/L (3.5-5.1)
--- NOTE | 2023-04-25 09:07 | Cardiology Progress Note ---
Date of Service April 25, 2023 Assessment & Plan (1) Cardiomyopathy: (2) Tachycardia: (3) Essential hypertension: (4) Elevated troponin: Plan 1. Cardiomyopathy: She has a newly diagnosed cardiomyopathy, on echocardiography about 2 years ago this finding was not present. She does have wall motion abnormalities and an elevated troponin yesterday, I am going to repeat that this morning to look for ongoing damage. These findings suggest that it is acute, I suspect it is not ischemic and it may be related to sepsis or perhaps even tachycardia. I would treat it with typical heart failure medications for now, especially beta-blockade given her tachycardia, which she is on now and I would titrate fairly quickly to get her heart rate under control. Her heart rate remains somewhat rapid and I am going to increase her beta-blockade today. I am ordering the standard tests for nonischemic cardiomyopathy, I did not order them when I saw her yesterday because of her plan transfer to [place]. We may need to evaluate her for ischemia but I would not do that with her current illness as this is not an acute myocardial infarction. In the future some type of stress testing or catheterization may well be indicated. I would plan on doing a limited echo for left ventricular ejection fraction prior to discharge, I would like to wait as long as possible however to allow for recovery if it occurs. 2. Tachycardia: Her tachycardia appears to be sinus tachycardia although it is quite fast and sustained but with a fair amount of variation, and she has had that in the past. On beta-blockade her heart rate is better controlled without dropping her blood pressure too much. It would be a good idea to control her tachycardia a little bit better and I am going to increase her beta-sophie. 3. Hypertension: She has a history of hypertension and has been on lisinopril recently. She has had quite labile blood pressure for a number of years with high readings at times. This could be due to catecholamines and beta-blockade may be the best treatment, certainly currently we need to do that with her cardiomyopathy. I would continue lisinopril however with her cardiomyopathy. 4. Elevated troponin: Her troponin is not terribly high and I suspect is related to her sepsis and high heart rate not due to large coronary vessel disease. We may have to investigate this further depending on how things progress over the next few days. I am going to order troponin for this morning. Admission and Anticipated Discharge Date Admission Date: April 22, 2023 Subjective She is feeling very well today. She is not being transferred to [facility] so will remain here until discharge. She does not have heart failure symptoms or other cardiovascular symptoms. Physical Exam Physical Exam: Constitutional: Alert, cooperative and in no distress. She is resting in bed. HEENT: Unremarkable Neck: No jugular venous distention, carotid pulses are normal and equal bilaterally without bruits. Pulmonary: Clear to auscultation bilaterally. Cardiac: Regular somewhat rapid rhythm with no murmur, gallop or rub. Abdomen: Soft, nontender with normal bowel sounds. Extremities: No edema. Distal pulses intact. Neurologic: No focal findings. Skin: No rash, ecchymoses or petechiae. Results & Data Vital Signs (Past 12 Hours) Vital Signs Temp Pulse Pulse Resp BP Pulse Ox O2 Del Method 04/25/23 08:00 99 H 04/25/23 07:02 36.7 C 90 18 115/76 95 Room Air 04/25/23 03:32 37.3 C 92 H 18 111/75 95 Room Air 04/25/23 00:59 94 H 04/24/23 23:19 36.9 C 96 H 18 104/70 95 Room Air Laboratory Results Cardiac Enzymes 04/24/23 Range/Units 09:36 Troponin I High Sens 392.5 H* (0-14) pg/ml CBC 04/25/23 Range/Units 06:48 WBC 11.33 H (4.8-10.8) K/ul RBC 4.62 (4.20-5.40) M/uL Hgb 13.0 (12.0-16.0) g/dl Hct 38.8 (37.0-47.0) % Plt Count 253 (130-400) K/uL Neut # (Auto) 8.29 H (1.40-6.50) K/uL Lymph # (Auto) 1.01 L (1.20-3.40) K/uL Ogle # (Auto) 1.39 H (0.11-0.59) K/uL Eos # (Auto) 0.04 (0.00-0.50) K/uL Baso # (Auto) 0.06 (0.00-0.20) K/uL Comprehensive Metabolic Panel 04/25/23 Range/Units 06:48 Sodium 137 (136-145) mmol/L Potassium 3.6 (3.5-5.1) mmol/L Chloride 98 (98-107) mmol/L Carbon Dioxide 29 (21-32) mmol/L BUN 17 (6-23) mg/dl Creatinine 0.89 (0.6-1.2) mg/dl Glucose 109 H (70-99(Fasting)) mg/dl Calcium 8.9 (8.6-10.3) mg/dl Intake and Output 04/24/23 04/25/23 04/25/23 22:59 06:59 14:59 Intake Total 200 / 1350 600 / 1350 Output Total 400 / 3750 900 / 3750 Balance -200 / -2400 -300 / -2400 Intake: IV 200 / 450 Ciprofloxacin / D5w 400 mg In 200 / 400 200 ml @ 100 mls/hr IV Q12H [facility] Rx#:[id number] Oral 200 / 900 400 / 900 Output: Urine 400 / 1300 900 / 1300 Other: Weight 61.1 kg Weight Measurement Method Standing Scale Diagnostic Findings Telemetry: Sinus rhythm, occasional sinus tachycardia but heart rate well- controlled. PG Care Time/CCT Total # of Minutes Spent Total Time Spent with Patient: Total time spent is greater than 50% in coordination of care (as documented) at patient's floor/unit and/or counseling patient: Coding Level of Care Code 21687 SUB INP/OBS CARE 3/50MIN Diagnoses Cardiomyopathy, unspecified type I42.9 Cardiomyopathy type: unspecified Tachycardia R00.0 Essential hypertension I10 Elevated troponin R79.89 (1) Cardiomyopathy Cardiomyopathy type: unspecified Qualified Code(s): I42.9 - Cardiomyopathy, unspecified
--- NOTE | 2023-04-25 09:07 | Urology Progress Note ---
Date of Service April 25, 2023 Assessment & Plan (1) Pyelonephritis: (2) Flank pain: (3) Renal abscess: Plan: Follow-up of pyelonephritis and right renal phlegmon with signs of developing abscess Patient afebrile, hemodynamically stable Labs- creatinine 0.89, WBC downtrending (11.33), Hgb 13.0 Urine culture 04/20 with Klebsiella Blood cultures with no growth x 48 hours Urine culture 04/22 prelim with Alma glabrata complex Recommend infectious disease consultation Urology recommended assessment for percutaneous drainage at outlying facility with interventional radiology due to size of abscess with increasing fluid collection She was not accepted for transfer at this time Continue with IV antibiotics/antifungals and supportive care per hospital medicine and ID If patient becomes febrile, clinically declines or develops worsening abscess, then recommend transfer for percutaneous drainage as previously suggested Will arrange outpatient follow-up will follow peripherally Admission and Anticipated Discharge Date Admission Date: April 22, 2023 Subjective Patient seen and examined at bedside, chart reviewed No acute issues overnight Reports right flank discomfort today, but not requiring pain medication No nausea or vomiting No voiding concerns Denies fever or chills, but reports ongoing sweats overnight Review of Systems Constitutional: as per Subjective / HPI Gastrointestinal: as per Subjective / HPI Genitourinary: as per Subjective / HPI Physical Exam Constitutional: well developed and well nourished; no acute distress Respiratory: normal respiratory effort; no respiratory distress and no labored breathing Cardiovascular: Extremities: no pedal edema Gastrointestinal (Abdomen): Inspection/Auscultation: abdomen normal to inspection Musculoskeletal: Head/Neck/Chest: normocephalic Skin: no visible rashes Neurologic: moves all extremities and awake Psychiatric: Orientation: alert and oriented x 3 Genitourinary: Mild tenderness to palpation over right flank Results & Data Vital Signs (Past 12 Hours) Vital Signs Temp Pulse Pulse Resp BP Pulse Ox O2 Del Method 04/25/23 08:00 99 H 04/25/23 07:02 36.7 C 90 18 115/76 95 Room Air 04/25/23 03:32 37.3 C 92 H 18 111/75 95 Room Air 04/25/23 00:59 94 H 04/24/23 23:19 36.9 C 96 H 18 104/70 95 Room Air PG Care Time/CCT Total # of Minutes Spent Total Time Spent with Patient: Total time spent is greater than 50% in coordination of care (as documented) at patient's floor/unit and/or counseling patient: Coding Level of Care Code 26969 SUB INP/OBS CARE 05/05MIN Diagnoses Pyelonephritis N12 Flank pain R10.9 Renal abscess N15.1
[2023-04-25] MEDS: cefTRIAXone SODIUM 2,000 MG in DEXTROSE 5 % MINI-B 50 ML IV SCH (09:11)
[2023-04-25] MEDS ORDERED: METOPROLOL TARTRATE 25 MG TAB PO STA (09:13)
[2023-04-25] MEDS: ONDANSETRON INJ 2 MG/ML 2 ML VIAL IV PRN ×2 (09:28→21:37)
[2023-04-25] MEDS: CIPROFLOXACIN / D5W 400 MG/200 ML BAG IV SCH ×2 (09:28→21:37)
[2023-04-25 10:17] LABS: Troponin I High Sensitivity 107.9 pg/ml (0-14)
[2023-04-25 10:30] LABS: Ferritin 245.6 ng/ml (8-388)
--- NOTE | 2023-04-25 12:12 | Hospitalist Progress Note ---
Date of Service April 25, 2023 Assessment & Plan (1) Cardiomyopathy: Plan: Acute cardio myopathy, possibly due to ischemia but most likely due to sepsis. 2D echo showed ejection from 35% which is new compared to her old echo. Cardiology on board, may pursue ischemic workup at some point. Continue medical management for now (2) Pyelonephritis: Plan: Suspected bilaterally on CT scan. Development of right renal phlegmon is evident on CT scan. Drainage procedure was suggested however, there is no drainable abscess on CT scan that was completed April 24.. Urology consultation and recommendations appreciated (3) Sepsis: Plan: Present on admission. She is now on Rocephin and ciprofloxacin. Known Klebsiella UTI associated with bilateral pyelonephritis and right renal phlegmon , Urine cultures also growing [place], ID on consult (4) Acute respiratory failure with hypoxia: Plan: Resolved with diuresis. She is now on room air (5) Acute systolic CHF (congestive heart failure): Plan: Cardiac echo surprisingly revealed ejection fraction of 35% with regional wall motion abnormalities. She has no previous cardiac history however. Cardiology consultation requested and pending (6) UTI due to Klebsiella species: Plan: Continue Rocephin and ciprofloxacin (7) Sinus tachycardia: Plan: Started on metoprolol by cardiology Continue. (8) Hypokalemia: Plan: Parenteral replacement has been switched to oral replacement. Serial labs (9) History of seizure: Plan: Stable. Continue Keppra (10) Essential hypertension: Plan: Lisinopril was held on admission and will be restarted with known ejection fraction of 35%. (11) ARDS (adult respiratory distress syndrome): Plan: Fortunately ruled out Plan Continue IV antibiotics. Appreciate urology consultation and recommendations. Admission and Anticipated Discharge Date Admission Date: April 22, 2023 Subjective Patient seen and examined still complains of some right-sided flank pain, and also some chills especially at night. Review of Systems Review of Systems: All systems reviewed are negative, apart from the ones contained in the history. Physical Exam Physical Exam: The patient is awake, alert and oriented 3, well developed and well nourished, normocephalic and atraumatic, lying in bed and in no acute distress. HEENT--PERRL, EOMI, mucous membranes and oropharynx mildly dry Neck--supple. No JVD. No bruits. Thyroid normal, trachea midline, no adenopathy. Heart--normal S1 and S2. No murmurs, rubs or gallops. Lungs--clear bilaterally, no respiratory distress, no accessory muscle use. Abdomen--normal bowel sounds and soft. right-sided flank pain Extremities--no cyanosis or clubbing. No edema. Dermatologic--normal skin turgor, normal color, no abnormal lymph nodes, no rash. Neurologic--cranial nerves II through XII grossly intact. Rheumatologic--normal range of motion. Psychiatric--normal affect. Results & Data Results & Data Vital Signs (Past 12 Hours) Vital Signs Temp Pulse Pulse Resp BP Pulse Ox O2 Del Method 04/25/23 11:35 98.2 F 81 18 104/72 97 Room Air 04/25/23 08:00 99 H 04/25/23 07:02 98.1 F 90 18 115/76 95 Room Air 04/25/23 03:32 99.1 F 92 H 18 111/75 95 Room Air 04/25/23 00:59 94 H PG Care Time/CCT Total # of Minutes Spent Total Time Spent with Patient: Total time spent is greater than 50% in coordination of care (as documented) at patient's floor/unit and/or counseling patient: Coding Level of Care Code 73957 SUB INP/OBS CARE 235MIN Diagnoses Cardiomyopathy, unspecified type I42.9 Cardiomyopathy type: unspecified Pyelonephritis N12 Sepsis A41.9 Acute respiratory failure with hypoxia J96.01 Acute systolic CHF (congestive heart failure) I50.21 UTI due to Klebsiella species N39.0; B96.89 Sinus tachycardia R00.0 Hypokalemia E87.6 History of seizure Z87.898 Essential hypertension I10 ARDS (adult respiratory distress syndrome) J80 Time Spent (min) 35 (1) Cardiomyopathy Cardiomyopathy type: unspecified Qualified Code(s): I42.9 - Cardiomyopathy, unspecified
[2023-04-25] MEDS: ENOXAPARIN INJ 40 MG/0.4 ML SYR SQ SCH (13:58)
--- NOTE | 2023-04-25 14:28 | Electrocardiogram Report ---
Test Reason : Blood Pressure : / mmHG Vent. Rate : 089 BPM Atrial Rate : 089 BPM P-R Int : 132 ms QRS Dur : 094 ms QT Int : 392 ms P-R-T Axes : 035 004 047 degrees QTc Int : 477 ms Normal sinus rhythm When compared with ECG of 24-APR-2023 09:07, No significant change was found Confirmed by Russ Stack ([id number]) on 04/25/2023 2:28:03 PM Referred By: REFERRED SELF Confirmed By:Russ Stack
[2023-04-25] MEDS: FLUoxetine HCL 20 MG CAP PO SCH (20:30)
[2023-04-25] MEDS: METOPROLOL TARTRATE 50 MG TAB PO SCH (20:31)
[2023-04-26] MEDS: PANTOprazole 40 MG TAB PO SCH ×2 (05:52→15:26)
[2023-04-26 06:59] LABS: BUN Creatinine Ratio 23.9 (10-20); Calcium 8.6 mg/dl (8.6-10.3); Creatinine Clr Calc Pharmacy 85.9 ml/min; Est GFR (African American) 117.1 ml/min; Est GFR (Non-African American) 101.1 ml/min; Potassium 4.2 mmol/L (3.5-5.1)
[2023-04-26] MEDS: METOPROLOL TARTRATE 50 MG TAB PO SCH ×2 (07:46→20:49)
[2023-04-26] MEDS: POTASSIUM CHLORIDE CRTAB 20 MEQ TABCR PO SCH ×2 (07:46→20:49)
[2023-04-26] MEDS: lisinopril 10 MG TAB PO SCH (07:46)
[2023-04-26] MEDS: MAGNESIUM OXIDE 400 MG TAB PO SCH ×2 (07:46→20:52)
[2023-04-26] MEDS: levETIRAcetam 500 MG TAB PO SCH ×2 (07:46→20:49)
[2023-04-26] MEDS: busPIRone 7.5 MG TAB PO SCH ×3 (07:46→20:48)
--- NOTE | 2023-04-26 09:04 | Infectious Disease Consult ---
Date of Consultation April 26, 2023 Assessment & Plan (1) Renal abscess: (2) Pyelonephritis: Plan 53 yo F with history of Crohn's disease, seizures (on Keppra), HTN, anxiety who presented on 04/22/2023 with worsening UTI symptoms with associated nausea, vomiting, right flank pain, admitted with bilateral pyelonephritis, R kidney phlegmon/developing abscess. Pt was initially seen by her PCP on 04/19 for a few days of cold symptoms and R flank pain x 1 day. She denied fevers, chills, urinary frequency, dysuria, hematuria at that time. A stat CT A/P without contrast on 04/19 showed no acute abnormalities. A UA showed >30 WBCs, so she was prescribed empiric Macrobid x 5 days. She then presented to the ED on 04/20 with right flank pain, vomiting. Labs showed WBC 12, creatinine 1.3, UA with >30 WBCs. She was discharged to continue her Macrobid. She presented back to the ED on 04/22 with continued right flank pain, N/V, unable to keep down her antibiotic. On presentation, patient was afebrile, tachycardic, with WBC 15.71, UA with >[address] A/P with IV contrast showed findings consistent with acute right pyelonephritis, multiple hypoenhancing foci within the right kidney including a 4.8 x 3.8 x 3 cm mid to lower pole focus containing multiple small fluid components, suggestive of phlegmon or developing abscess formation, no drainable fluid collection at this time, right perinephric stranding and fluid, urothelial thickening of the right ureter consistent with pyelitis, subtle hypoenhancing foci within the left kidney suggestive of acute pyelonephritis, bilateral nephrolithiasis, no ureteral calculi, no hydronephrosis. It was noted that patient's urine culture from 04/19 and 04/20 were growing Klebsiella pneumoniae; 04/20 culture showed intermediate sensitivity to Macrobid, but otherwise sensitive. Patient was started on ceftriaxone prior to blood culture collection. On 04/23, WBC increased to 17. Ciprofloxacin IV was added. Repeat CT A/P with IV contrast on 04/24 showed bilateral pyelonephritis modestly improved from 04/22, phlegmonous change/developing multiloculated fluid collection interpolar right kidney similar to 04/22 (4.6 x 4.2 x 3.2 cm), internal low- attenuation/fluid components appear somewhat increased from previous, likely representing a developing abscess, no drainable collection at this time. Transferred for IR drainage was attempted but unsuccessful. Pt remains here on ceftriaxone and ciprofloxacin, and WBC has downtrended to 11.3. Micro: 04/22 BCx x2: NGTD 04/22 UCx: Alma glabrata plus low counts of other mixed mikayla 04/20 UCx: Kleb pneumo (I nitrofurantoin, otherwise S) 04/19 UCx: Kleb pneumo (landry-sensitive) Abx: Ceftriaxone 2 g 04/22 - present Ciprofloxacin IV 04/23 - present Problems: #R renal phlegmon/abscess #Bilateral pyelonephritis Discussion: Klebsiella pneumoniae is the likely pathogen causing the renal abscess. She did have a urine culture on 04/22 which grew Alma glabrata and low counts of other mixed mikayla--however the Alma is less likely the culprit, and more likely a colonizer in the setting of receiving several days of nitrofurantoin. She did not have candidemia at the same time, which is also reassuring against a fungemia seeding the kidneys. She seems to be improving on antibiotics alone, without antifungals. Recommendations: -Do not need double antibiotic therapy. Discontinued ciprofloxacin -Continue ceftriaxone 2 g IV q24h while inpatient -On discharge, can transition to levofloxacin 750 mg PO q24h. This has equivalent PO/IV bioavailability, so pt will be able to avoid a PICC line and home IV antibiotics. Would send with at least a 3 week course from 04/22, and plan for a repeat CT A/P with IV contrast prior to stopping the antibiotics. If a renal abscess persists, would extend the levofloxacin course. If the abscess remains sizeable on repeat imaging, would re-evaluate need for percutaneous drainage at that time. -Her QTc on 04/25 was 477, and on 04/22 was 442. -If as an outpatient, pt has difficulty tolerating the PO levofloxacin, could consider switching to TMP/SMX 2 DS tabs PO q12h instead. This also has equivalent PO/IV bioavailability Will sign off. Please page [facility] with further questions. Consultation Information Consultation was provided via telemedicine using two-way real-time interactive telecommunication between the patient and the telemedicine provider. For the duration of the visit, the provider was performing the assessment from a different facility than the patient. This includesuse of bluetooth stethoscope forauscultationperformed by the telepresenter that the telemedicine provider can hear if described in the physical exam. [employer] Senior Specialist contact information: Please call [facility] . (Phone Number For Physician Use Only) After establishing a telemedicine visit, patient was: Patient was verified with two unique identifiers, Patient/authorized rep acknowledged consent and understanding and Gave permission to continue telehealth session Time Spent with Patient: Initial => 40 min History of Present Illness Reason for Consultation: Renal abscess Requesting Physician: Dr. Rodriguez Attending Physician: Jimenez Rodriguez MD History of Present Illness 53 yo F with history of Crohn's disease, seizures (on Keppra), HTN, anxiety who presented on 04/22/2023 with worsening UTI symptoms with associated nausea, vomiting, right flank pain. She was seen by her PCP on 04/19 for a few days of cold symptoms and R flank pain x 1 day. She denied fevers, chills, urinary frequency, dysuria, hematuria at that time. She underwent stat CT A/P without contrast on 04/19, which showed no acute abnormalities, no obstructive nephrolithiasis. A UA showed >30 WBCs, so she was prescribed empiric Macrobid x 5 days. She then presented to the ED on 04/20 with dysuria, right flank pain, vomiting. Labs showed WBC 12, creatinine 1.3, UA with >30 WBCs. She was discharged to continue her Macrobid. She presented back to the ED on 04/22 with continued right flank pain, N/V, unable to keep down her antibiotic. On presentation, patient was afebrile, tachycardic. Labs showed WBC 15.71, creatinine 0.9, UA with >[address] A/P with IV contrast showed findings consistent with acute right pyelonephritis, multiple hypoenhancing foci within the right kidney including a 4.8 x 3.8 x 3 cm mid to lower pole focus containing multiple small fluid components, suggestive of phlegmon or developing abscess formation, no drainable fluid collection at this time, right perinephric stranding and fluid, urothelial thickening of the right ureter consistent with pyelitis, subtle hypoenhancing foci within the left kidney suggestive of acute pyelonephritis, bilateral nephrolithiasis, no ureteral calculi, no hydronephrosis. It was noted that patient's urine culture from 04/19 and 04/20 were growing Klebsiella pneumoniae; 04/20 culture showed intermediate sensitivity to Macrobid, but otherwise pansensitive. Patient was started on ceftriaxone prior to blood culture collection. Overnight into 04/23, patient developed shortness of breath, 2 L O2 requirement. BNP was elevated over 1700. CTA chest showed likely pulmonary edema. TTE showed EF 35 to 40%. She was started on diuresis. On 04/23, WBC increased to 17. Ciprofloxacin IV was added. Repeat CT A/P with IV contrast on 04/24 showed bilateral pyelonephritis modestly improved from 04/22, phlegmonous change/developing multiloculated fluid collection interpolar right kidney similar to 04/22 (4.6 x 4.2 x 3.2 cm), internal low-attenuation/fluid components appear somewhat increased from previous, likely representing a developing abscess, no drainable collection at this time. Transferred for IR drainage was attempted but unsuccessful. Pt remains here on ceftriaxone and ciprofloxacin, and WBC has downtrended to 11.3. Pt reports her R flank pain is still present but improved. Allergies Allergy/AdvReac Type Severity Reaction Status Date / Time No Known Allergies Allergy Verified 04/22/23 11:26 Home Medications Medication Instructions Recorded Confirmed Type flaxseed oil 1,000 mg capsule 1,000 mg PO QAM 07/20/19 04/22/23 History sennosides 8.6 mg-docusate sodium 1 tab PO QPM 07/20/19 04/22/23 History 50 mg tablet omega 3-olc-fmr-fish oil 1,000 mg 1 cap PO QAM 03/10/21 04/22/23 History (120 mg-180 mg) capsule (Fish Oil) lisinopril 5 mg tablet See Rx Instructions .Route .COMPLEX 10/29/22 04/22/23 History levetiracetam 500 mg tablet 500 mg PO BID #180 tabs 11/30/22 04/22/23 Rx (Keppra) pravastatin 20 mg tablet 20 mg PO QAM #90 tabs 02/21/23 04/22/23 Rx semaglutide (weight loss) 0.25 0.25 - 0.5 mg (0.5 - 1 mL) subcut 02/21/23 04/22/23 Rx mg/0.5 mL subcutaneous pen injector Q7D #2 mL buspirone 7.5 mg tablet 7.5 mg PO TID #270 tabs 02/28/23 04/22/23 Rx lorazepam 0.5 mg tablet 0.25 - 0.5 mg (0.5 - 1 x 0.5 mg) 03/29/23 04/22/23 Rx PO DAILY PRN Anxiety #30 tabs fluoxetine 40 mg capsule 40 mg PO HS #90 caps 04/18/23 04/22/23 Rx nitrofurantoin 100 mg PO Q12H 5 days #10 caps 04/19/23 04/22/23 Rx monohydrate/macrocrystals 100 mg capsule dicyclomine 20 mg tablet 20 mg PO BID PRN ABD PAIN 04/20/23 04/22/23 History ondansetron HCl 4 mg tablet 4 mg PO TID PRN nausea and 04/20/23 04/22/23 Rx vomiting 5 days #15 tabs pantoprazole 40 mg tablet,delayed 40 mg PO BID 04/20/23 04/22/23 History release Patient History Medical History Hypercholesterolemia with LDL greater than 190 mg/dL Overweight (BMI 25.0-29.9) History of seizure last 2020, unsure what type? grand mal--on kera--follows with [facility] Neurology Dr. Ridley Hypercholesteremia GERD (gastroesophageal reflux disease) Stomach ulcer Crohn's disease Deafness in left ear Migraines Hypertension Surgical History History of esophagogastroduodenoscopy (EGD) History of colonoscopy S/P endometrial ablation History of tonsillectomy and adenoidectomy History of sinus surgery History of hysterectomy total abdominal hyster History of delivery Family History Father Heart disease Myocardial infarction Hypertension Aunt Crohn's disease Grandmother (Maternal) Cancer Grandfather (Maternal) Myocardial infarction Other No family history of adverse response to anesthesia No family history of bleeding disorder Denies family history of Ovarian cancer Prostate cancer Breast cancer Colorectal cancer Social History Smoking Status: Never smoker Tobacco Type: Cigarettes Second Hand Exposure: No; Do You Dip or Chew Tobacco: No; Hx Alcohol Use: No Hx Substance Use: No Preferred Language: Slovenian Communication Ability: Effective Shape Carver Required: No Beliefs That Will Affect Care: None marital status: Current Living Situation: Spouse Current Living Situation Comment: Lives with and daughter current occupational status: employed current occupation: Registration at [employer] Feels Safe at Home: Yes Childhood Exposure to Second-Hand Smoke: No Dental Care, Regularly: Yes Physical Activity Frequency: 5-6 Times per Week Seatbelt Use: always Sunscreen Use: Yes Assistive Devices: None Review of System A complete ROS was performed and is negative except as mentioned in the HPI. Physical Exam Physical Exam: GEN: Well-appearing, in NAD. HEENT: Normocephalic, atraumatic. RESP: No increased work of breathing ABD: Soft, non-distended. Non-tender to palpation. EXT: No LE edema. Warm, well-perfused. SKIN: No lesions or rashes on exposed skin. BACK: R CVA tenderness. NEURO: Alert and oriented. Answers all questions appropriately. Speech not slurred. PSYCH: Normal mood, affect appropriate. Results & Data Vital Signs (Past 12 Hours) Vital Signs Temp Pulse Pulse Resp BP Pulse Ox O2 Del Method 04/26/23 08:00 83 04/26/23 07:08 36.9 C 78 18 99/66 L 95 Room Air 04/26/23 03:45 36.4 C L 77 16 109/73 98 Room Air 04/25/23 23:48 36.6 C 70 20 95/67 L 95 Room Air 04/25/23 22:59 74 04/25/23 21:41 36.7 C 04/25/23 20:52 Room Air Laboratory Results BMP 04/26/23 05:57 Sodium 137 Potassium 4.2 Chloride 103 Carbon Dioxide 26 BUN 16 Creatinine 0.67 Glucose 102 H Calcium 8.6 Diagnostic Findings Chest X-Ray 04/23/23 08:33 SINGLE VIEW CHEST CLINICAL HISTORY: Hypoxic respiratory failure FINDINGS: An AP, portable, upright chest radiograph is compared to study dated 04/22/2023. The cardiomediastinal silhouette is top normal for projection. Bilateral interstitial and airspace opacities are similar to yesterday. No large pleural effusion or pneumothorax is seen. The bony thorax is grossly intact. Calcific tendinopathy is noted in the right shoulder. IMPRESSION: Interstitial and airspace opacities are similar to yesterday. The appearance favors pulmonary edema. Correlate clinical for evidence of a superimposed infectious/inflammatory pneumonitis. Radiographic follow-up to resolution is recommended. ACT 112: Negative or not required by law. Electronically signed by: Ritchie Field M.D. 04/23/2023 9:15 AM Chest CTA 04/23/23 09:23 CT ANGIOGRAM OF THE CHEST CLINICAL HISTORY: Acute hypoxic respiratory failure COMPARISON STUDY: Chest x-ray dated 04/23/2023. Chest CT dated 03/10/2021. TECHNIQUE: Following the IV administration of 70 cc of Optiray 320, CT angiogram of the chest was performed from the upper abdomen to the thoracic inlet utilizing the pulmonary embolus protocol. Images are reviewed in the axial, sagittal, and coronal planes. 3-D MIPS images are created and assessed. IV contrast was administered without complication. A dose lowering technique was utilized adhering to the principles of ALARA. The examination is degraded by motion artifact, as well as by streak artifact from the right arm which could not be elevated above the chest. CT DOSE: 484.83 mGy.cm FINDINGS: Thyroid: Imaged portions of the thyroid gland are normal in size and attenuation. Thoracic aorta: The thoracic aorta is normal in caliber and demonstrates standard 3-vessel arch anatomy. No dissection is seen. Pulmonary vasculature: The pulmonary trunk is normal in caliber. There are no filling defects identified in main, lobar, or segmental pulmonary branches to suggest pulmonary embolus. Heart: The heart is normal in size and without pericardial effusion. Lungs and pleural spaces: Evaluation of the lung parenchyma is moderately degraded by motion artifacts. Intralobular septal thickening is observed. The trachea and central airways are clear. There are bilateral ground glass opacities. There are small pleural effusions with dependent atelectasis. Mediastinum: There is no mediastinal lymphadenopathy. Clau: Clear. Axillae: There is no axillary lymphadenopathy. Upper abdomen: Cholecystectomy clips are noted. There are numerous bilateral nonobstructing calculi seen within the partially imaged kidneys. The largest is in the right upper pole and measures up to 11 mm. Skeletal structures: No lytic or blastic bony lesions are seen. IMPRESSION: 1. There is no evidence of pulmonary embolus in the main, lobar, or segmental pulmonary arteries. 2. There is evidence of congestive failure. 3. Bilateral airspace opacities likely represent pulmonary edema. Correlate clinically for evidence of a superimposed infectious/inflammatory pneumonitis. Radiographic follow-up to resolution is recommended. 4. Small pleural effusions. 5. Bilateral nephrolithiasis. 6. Additional findings as above. ACT 112: Negative or not required by law. Electronically signed by: Ritchie Field M.D. 04/23/2023 10:27 AM Chest X-Ray 04/24/23 06:58 TWO VIEW CHEST CLINICAL HISTORY: Pulmonary edema. FINDINGS: PA and lateral chest radiographs are compared to chest x-ray and chest CT dated 04/23/2023. The cardiomediastinal silhouette is unremarkable. Pulmonary edema has almost completely resolved. Small pleural effusions are noted on the lateral projection. There is no pneumothorax. The bony thorax appears intact. Cholecystectomy clips are seen in the upper abdomen. IMPRESSION: 1. Pulmonary edema has almost completely resolved. 2. Small pleural effusions are noted on the lateral projection. ACT 112: Negative or not required by law. Electronically signed by: Ritchie Field M.D. 04/24/2023 7:22 AM Abdomen/Pelvis CT 04/24/23 07:00 CT SCAN OF THE ABDOMEN AND PELVIS WITH IV CONTRAST CLINICAL HISTORY: Follow-up pyelonephritis COMPARISON STUDY: Abdominal CT dated 04/22/2023. TECHNIQUE: Following the IV administration of 90 cc of Optiray 320, CT scan of the abdomen and pelvis is performed from the lung bases to the proximal femora. Images are reviewed in the axial, sagittal, and coronal planes. IV contrast was administered without complication. A dose lowering technique was utilized adhering to the principles of ALARA. CT DOSE: 741.28 mGy.cm FINDINGS: Lung bases: The heart is normal in size and without pericardial effusion. There are small pleural effusions, left larger than right with dependent atelectasis. Liver: The contrast-enhanced liver is normal in size, contour, and attenuation. Fatty infiltration is seen adjacent to the falciform ligament. There is no intrahepatic biliary ductal dilatation. The hepatic veins and portal veins are patent. Gallbladder: Surgically absent noting clips in the gallbladder fossa. Spleen: Normal in size and attenuation. Pancreas: Unremarkable. Adrenal glands: Unremarkable. Kidneys: The contrast enhanced kidneys are normal in size and without hydronephrosis. Urothelial thickening and enhancement is again seen involving the right ureter. A developing multiloculated fluid collection/phlegmonous change within the interpolar right kidney is similar in appearance to the 04/22/2023 examination. The fluid component has likely modest increased. This measures 4.6 x 4.2 x 3.2 cm as seen on image #129. There is heterogeneous enhancement of both kidneys, right greater than left. This appears modestly improved from 04/22/2023. A region of There are numerous bilateral nonobstructing renal calculi which measure up to 11 mm. A 4.3 cm cyst is noted in the left kidney. A 1.8 cm cyst is noted on the right. Right-sided perinephric stranding and fluid is modestly improved. Abdominal vasculature: The abdominal aorta is normal in course and caliber noting scattered foci of atherosclerotic calcification. Bowel: There is no bowel obstruction. The appendix is not clearly visualized. Peritoneum: There is no intraperitoneal free air or abdominal ascites. Lymphadenopathy: None. Pelvic viscera: The bladder is decompressed around a Fierro catheter. Intraluminal gas is likely related to instrumentation. The uterus is surgically absent. No adnexal lesion is seen. Skeletal structures: No lytic or blastic lesions are seen. IMPRESSION: 1. Again seen is heterogeneous enhancement of both kidneys, right greater than left with urothelial thickening and enhancement of the right ureter. This appears modestly improved from 04/22/2023 and likely represents bilateral pyelonephritis. 2. Phlegmonous change/a developing multiloculated fluid collection in the interpolar right kidney is similar to the 04/22/2023 examination. The internal low-attenuation/fluid components appear somewhat increased from previous. This likely represents a developing abscess. No drainable collection is seen at this time. 3. Bilateral nephrolithiasis. 4. Right-sided perinephric stranding and fluid has modestly improved. 5. Small pleural effusions. 6. Additional findings as above. ACT 112: Negative or not required by law. Electronically signed by: Ritchie Field M.D. 04/24/2023 11:56 AM Medications Administered Current Inpatient Medications Acetaminophen (Acetaminophen 325 Mg Tab) 650 mg PO Q4H PRN PRN Reason: pain(1-4),fever,headache Stop: 05/22/23 11:49 Last Admin: 04/25/23 20:34 Dose: 650 mg Buspirone HCl (Buspirone 7.5 Mg Tab) 7.5 mg PO TID [facility] Stop: 05/22/23 13:59 Last Admin: 04/26/23 07:46 Dose: 7.5 mg Enoxaparin Sodium (Enoxaparin Inj 40 Mg/0.4 Ml Syr) 40 mg SQ Q24H [facility] Stop: 05/22/23 12:44 Last Admin: 04/25/23 13:58 Dose: 40 mg Fluoxetine HCl (Fluoxetine Hcl 20 Mg Cap) 40 mg PO HS [facility] Stop: 05/22/23 20:59 Last Admin: 04/25/23 20:30 Dose: 40 mg Ceftriaxone Sodium 2,000 mg/ (Dextrose) 50 mls @ 100 mls/hr IV Q24H [facility]; Protocol Stop: 05/03/23 09:59 Last Infusion: 04/25/23 09:57 Dose: Infused Ciprofloxacin (Cipro / D5w) 400 mg in 200 mls @ 100 mls/hr IV Q12H [facility]; Protocol Stop: 05/03/23 09:59 Last Infusion: 04/25/23 23:51 Dose: Infused Levetiracetam (Levetiracetam 500 Mg Tab) 500 mg PO BID [facility] Stop: 05/22/23 20:59 Last Admin: 04/26/23 07:46 Dose: 500 mg Lisinopril (Lisinopril 10 Mg Tab) 10 mg PO QAM [facility] Stop: 05/24/23 12:44 Last Admin: 04/26/23 07:46 Dose: 10 mg Lorazepam (Lorazepam 0.5 Mg Tab) 0.5 mg PO DAILY PRN PRN Reason: Anxiety Stop: 05/22/23 12:28 Magnesium Oxide (Magnesium Oxide 400 Mg Tab) 400 mg PO BID [facility] Stop: 05/24/23 09:14 Last Admin: 04/26/23 07:46 Dose: 400 mg Metoprolol Tartrate (Metoprolol Tartrate 50 Mg Tab) 50 mg PO BID [facility] Stop: 05/25/23 20:59 Last Admin: 04/26/23 07:46 Dose: 50 mg Morphine Sulfate (Morphine Sulfate 4 Mg/Ml 1 Ml Carp\Vial) 2 mg IV Q4H PRN PRN Reason: Pain(5+) Stop: 05/06/23 08:25 Last Admin: 04/23/23 02:02 Dose: 2 mg Ondansetron HCl (Ondansetron Inj 2 Mg/Ml 2 Ml Vial) 4 mg IV Q4H PRN PRN Reason: Nausea Stop: 05/22/23 11:35 Last Admin: 04/25/23 21:37 Dose: 4 mg Pantoprazole Sodium (Pantoprazole 40 Mg Tab) 40 mg PO 0700,1600 [facility] Stop: 05/22/23 15:59 Last Admin: 04/26/23 05:52 Dose: 40 mg Potassium Chloride (Potassium Chloride Crtab 20 Meq Tabcr) 20 meq PO BID [facility] Stop: 05/23/23 15:59 Last Admin: 04/26/23 07:46 Dose: 20 meq
[2023-04-26] MEDS: cefTRIAXone SODIUM 2,000 MG in DEXTROSE 5 % MINI-B 50 ML IV SCH (10:06)
[2023-04-26] MEDS: CIPROFLOXACIN / D5W 400 MG/200 ML BAG IV SCH ×2 (10:07→21:27)
[2023-04-26] MEDS: ONDANSETRON INJ 2 MG/ML 2 ML VIAL IV PRN ×2 (10:08→21:27)
--- NOTE | 2023-04-26 11:18 | Hospitalist Progress Note ---
Date of Service April 26, 2023 Assessment & Plan (1) Cardiomyopathy: Plan: Acute cardio myopathy, possibly due to ischemia but most likely due to sepsis. 2D echo showed ejection from 35% which is new compared to her old echo. Cardiology on board, may pursue ischemic workup at some point. Continue medical management for now (2) Pyelonephritis: Plan: Suspected bilaterally on CT scan. Development of right renal phlegmon is evident on CT scan. Drainage procedure was suggested however, there is no drainable abscess on CT scan that was completed April 24.. Urology consultation and recommendations appreciated Infectious diseases recommend discontinuing ciprofloxacin and continue only ceftriaxone Also, upon discharge to transition to levofloxacin 750mg p.o. every 24 hours for [address] abdomen with IV contrast prior to stopping antibiotics. (3) Sepsis: Plan: Present on admission. She is now on Rocephin and ciprofloxacin. Known Klebsiella UTI associated with bilateral pyelonephritis and right renal phlegmon , Urine cultures also growing Alma, ID on consult ID recommends discontinue ciprofloxacin and continue only Rocephin Upon discharge, will transition to levofloxacin 750 mg daily for 3 weeks (4) Acute respiratory failure with hypoxia: Plan: Resolved with diuresis. She is now on room air (5) Acute systolic CHF (congestive heart failure): Plan: Cardiac echo surprisingly revealed ejection fraction of 35% with regional wall motion abnormalities. She has no previous cardiac history however. Cardiology consultation requested and pending (6) UTI due to Klebsiella species: Plan: Continue Rocephin and ciprofloxacin (7) Sinus tachycardia: Plan: Started on metoprolol by cardiology Continue. (8) Hypokalemia: Plan: Parenteral replacement has been switched to oral replacement. Serial labs (9) History of seizure: Plan: Stable. Continue Keppra (10) Essential hypertension: Plan: Lisinopril was held on admission and will be restarted with known ejection fraction of 35%. (11) ARDS (adult respiratory distress syndrome): Plan: Fortunately ruled out Plan Hopefully discharge in next 24 to 48 hours Admission and Anticipated Discharge Date Admission Date: April 22, 2023 Subjective Patient seen and examined still complains of some right-sided flank pain, and also some chills especially at night. Review of Systems Review of Systems: All systems reviewed are negative, apart from the ones contained in the history. Physical Exam Physical Exam: The patient is awake, alert and oriented 3, well developed and well nourished, normocephalic and atraumatic, lying in bed and in no acute distress. HEENT--PERRL, EOMI, mucous membranes and oropharynx mildly dry Neck--supple. No JVD. No bruits. Thyroid normal, trachea midline, no adenopathy. Heart--normal S1 and S2. No murmurs, rubs or gallops. Lungs--clear bilaterally, no respiratory distress, no accessory muscle use. Abdomen--normal bowel sounds and soft. right-sided flank pain Extremities--no cyanosis or clubbing. No edema. Dermatologic--normal skin turgor, normal color, no abnormal lymph nodes, no rash. Neurologic--cranial nerves II through XII grossly intact. Rheumatologic--normal range of motion. Psychiatric--normal affect. Results & Data Results & Data Vital Signs (Past 12 Hours) Vital Signs Temp Pulse Pulse Pulse Resp BP Pulse Ox 04/26/23 11:08 97.3 F L 66 16 L 90/60 L 98 04/26/23 08:00 83 04/26/23 07:08 98.4 F 78 18 99/66 L 95 04/26/23 03:45 97.5 F L 77 16 109/73 98 04/25/23 23:48 97.9 F 70 20 95/67 L 95 O2 Del Method 04/26/23 11:08 Room Air 04/26/23 08:00 04/26/23 07:08 Room Air 04/26/23 03:45 Room Air 04/25/23 23:48 Room Air PG Care Time/CCT Total # of Minutes Spent Total Time Spent with Patient: Total time spent is greater than 50% in coordination of care (as documented) at patient's floor/unit and/or counseling patient: Coding Level of Care Code 41463 SUB INP/OBS CARE 2/35MIN Diagnoses Cardiomyopathy, unspecified type I42.9 Cardiomyopathy type: unspecified Pyelonephritis N12 Sepsis A41.9 Acute respiratory failure with hypoxia J96.01 Acute systolic CHF (congestive heart failure) I50.21 UTI due to Klebsiella species N39.0; B96.89 Sinus tachycardia R00.0 Hypokalemia E87.6 History of seizure Z87.898 Essential hypertension I10 ARDS (adult respiratory distress syndrome) J80 Time Spent (min) 35 (1) Cardiomyopathy Cardiomyopathy type: unspecified Qualified Code(s): I42.9 - Cardiomyopathy, unspecified
[2023-04-26] MEDS: ENOXAPARIN INJ 40 MG/0.4 ML SYR SQ SCH (13:02)
[2023-04-26] MEDS: FLUoxetine HCL 20 MG CAP PO SCH (20:49)
[2023-04-27] MEDS: PANTOprazole 40 MG TAB PO SCH (05:50)
[2023-04-27 08:03] LABS: BUN Creatinine Ratio 23.2 (10-20); Calcium 8.8 mg/dl (8.6-10.3); Creatinine Clr Calc Pharmacy 82.1 ml/min; Est GFR (Non-African American) 100.1 ml/min; Potassium 4.6 mmol/L (3.5-5.1)
[2023-04-27] MEDS: POTASSIUM CHLORIDE CRTAB 20 MEQ TABCR PO SCH (08:40)
[2023-04-27] MEDS: METOPROLOL TARTRATE 50 MG TAB PO SCH (08:40)
[2023-04-27] MEDS: lisinopril 10 MG TAB PO SCH (08:41)
[2023-04-27] MEDS: busPIRone 7.5 MG TAB PO SCH ×2 (08:41→13:48)
[2023-04-27] MEDS: levETIRAcetam 500 MG TAB PO SCH (08:41)
[2023-04-27] MEDS: MAGNESIUM OXIDE 400 MG TAB PO SCH (08:41)
[2023-04-27 08:50] LABS: Hematocrit (blood only) 35.8 % (37.0-47.0); Hemoglobin 12.4 g/dl (12.0-16.0); Mean Corpuscular Hemoglobin 28.8 pg (25.0-34.0); Mean Corpuscular Hgb Conc 34.6 g/dL (32.0-36.0); Mean Corpuscular Volume 83.1 fL (80.0-100.0); Mean Platelet Volume 10.9 fL (9.4-12.4); Platelet Count 281 K/uL (130-400); RDW Coefficient of Variation 14.7 % (11.5-14.5); RDW Standard Deviation 45.3 fL (36.4-46.3); Red Blood Count 4.31 M/uL (4.20-5.40)
--- NOTE | 2023-04-27 09:39 | Cardiology Progress Note ---
Date of Service April 27, 2023 Assessment & Plan (1) Cardiomyopathy: (2) Tachycardia: (3) Essential hypertension: (4) Elevated troponin: Plan 1. Cardiomyopathy: She has a newly diagnosed cardiomyopathy this admission, on echocardiography about 2 years ago this finding was not present. She did have wall motion abnormalities and an elevated troponin which dropped quickly. These findings suggest that it is acute, I suspect it is not ischemic and it may be related to sepsis or perhaps even tachycardia. I would treat it with typical heart failure medications for now, especially beta-blockade given her tachycardia, 2. Tachycardia: Her tachycardia appeared to be sinus tachycardia although it was quite fast and sustained but with a fair amount of variation, and she has had that in the past. On beta-blockade her heart rate is much better controlled. Her BP is somewhat low but she feels well so I would not worry about that unless she develops symptoms. 3. Hypertension: She has a history of hypertension and has been on lisinopril recently. She has had quite labile blood pressure for a number of years with high readings at times. This could be due to catecholamines and beta-blockade may be the best treatment, certainly currently we need to do that with her cardiomyopathy. I would continue lisinopril however with her cardiomyopathy. 4. Elevated troponin: Her troponin was not terribly high on presentation and dropped quickly and I suspect this was related to her sepsis and high heart rate not due to large coronary vessel disease. We may have to investigate this Admission and Anticipated Discharge Date Admission Date: April 22, 2023 Subjective She is feeling very well today, she feels well to go home. No cardiovascular symptoms. Physical Exam Physical Exam: Constitutional: Alert, cooperative and in no distress. She is resting in bed. HEENT: Unremarkable Neck: No jugular venous distention, carotid pulses are normal and equal bilaterally without bruits. Pulmonary: Clear to auscultation bilaterally. Cardiac: Regular somewhat rhythm with no murmur, gallop or rub. Abdomen: Soft, nontender with normal bowel sounds. Extremities: No edema. Distal pulses intact. Neurologic: No focal findings. Skin: No rash, ecchymoses or petechiae. Results & Data Vital Signs (Past 12 Hours) Vital Signs Temp Pulse Pulse Resp BP Pulse Ox O2 Del Method 04/27/23 07:36 36.6 C 69 18 92/63 L 98 Room Air 04/27/23 04:00 36.8 C 76 18 99/69 L 97 Room Air 04/26/23 23:46 36.9 C 73 16 99/67 L 98 Room Air 04/26/23 23:02 73 Laboratory Results CBC 04/27/23 Range/Units 07:10 WBC 11.80 H (4.8-10.8) K/ul RBC 4.31 (4.20-5.40) M/uL Hgb 12.4 (12.0-16.0) g/dl Hct 35.8 L (37.0-47.0) % Plt Count 281 (130-400) K/uL Comprehensive Metabolic Panel 04/27/23 Range/Units 07:02 Sodium 136 (136-145) mmol/L Potassium 4.6 (3.5-5.1) mmol/L Chloride 104 (98-107) mmol/L Carbon Dioxide 24 (21-32) mmol/L BUN 16 (6-23) mg/dl Creatinine 0.69 (0.6-1.2) mg/dl Glucose 95 (70-99(Fasting)) mg/dl Calcium 8.8 (8.6-10.3) mg/dl Intake and Output 04/26/23 04/27/23 04/27/23 22:59 06:59 14:59 Intake Total 240 / 1180 690 / 1180 Balance 240 / 1180 690 / 1180 Intake: IV 200 / 450 Ciprofloxacin / D5w 400 mg In 200 / 400 200 ml @ 100 mls/hr IV Q12H JONATHAN Rx#:[id number] Oral 240 / 730 490 / 730 Other: # Unmeasured Voids 2 Weight 61.2 kg Weight Measurement Method Standing Scale Diagnostic Findings Telemetry: SR, appropriate HR variation, no significant arrhythmia PG Care Time/CCT Total # of Minutes Spent Total Time Spent with Patient: Total time spent is greater than 50% in coordination of care (as documented) at patient's floor/unit and/or counseling patient: Coding Level of Care Code 49921 SUB INP/OBS CARE 2/35MIN Diagnoses Cardiomyopathy, unspecified type I42.9 Cardiomyopathy type: unspecified Tachycardia R00.0 Essential hypertension I10 Elevated troponin R79.89 (1) Cardiomyopathy Cardiomyopathy type: unspecified Qualified Code(s): I42.9 - Cardiomyopathy, unspecified
[2023-04-27] MEDS: cefTRIAXone SODIUM 2,000 MG in DEXTROSE 5 % MINI-B 50 ML IV SCH (09:40)
--- NOTE | 2023-04-27 11:26 | Discharge Summary ---
Date of Service April 27, 2023 Admission HPI Per Admitting Provider Odalys is a 53 year old female with a PMH significant for Chron's disease, hx of seizure (on Keppra), GERD, HTN, anxiety who presented to the [facility] on 04/22/23 with complaints of worsening UTI symptoms with associated nausea, vomiting, and right flank pain. Per the ED staff, the patient was diagnosed with a UTI by her PCP on 04/19/23 and was prescribed a course of Macrobid. She presented to the [facility] ED on 04/20/23 with uncontrolled nausea and vomiting. CT of the abd/pelvis wo con was obtained and was negative for signs of Nephrolithiasis or signs of obstruction. She was given 1L NSS and a dose of zofran and di scharged home to continue her home course of Macrobid. Unfortunately her nausea and vomiting continued and she has been unable to successful take her oral antibiotic at home. In the ED she was noted to be tachycardic with a HR of 127 but otherwise stable. Labs were significant for a leukocytosis of 15 with neutrophil predominance of 13, potassium of 3.1, alk phos of 113. Ct of the abd/pelvis w/IV con was read as "1. Findings consistent with acute right pyelonephritis. Multiple hypoenhancing foci within the right kidney, including a 4.8 x 3.8 x 3 cm mid to lower pole focus which contains multiple small fluid components. This is suggestive of phlegmon with developing abscess formation. No drainable fluid collection at this time. Right perinephric stranding and fluid. Urothelial thickening of the right ureter consistent with pyelitis. 2. Subtle hypoenhancing foci within the left kidney suggestive of acute pyelonephritis. 3. Bilateral nephrolithiasis. No ureteral calculi. No hydronephrosis.". Prior to admission the patient was given 1L NSS, 2gm Ceftriaxone, 10 meq IV KCL, and ordered another 500 mL NSS bolus to complete her sepsis fluid bolus of 1500 mL based on ideal body weight. At the time of the exam the patient was lying in bed in no acute distress, she is ill appearing. She and her confirm the above history. She states that she has been unable to keep food or medications consistently down over the past 48 hours. She was able to take her HS medications last night which included her Keppra and lisinopril. She and her state that her urine looks closer to normal today compared to 04/20 when she was in the ED. Her abdominal discomfort started in the suprapubic region and progressed to the right flank over the past 48 hours. She states that she was having chills and shaking approximately 30 min prior to my exam. She is on Ozempic for weight loss but has not had a dose in a month as it is out of stock. She is a full code. Principal Diagnosis Renal abscess Discharge Exam The patient is awake, alert and oriented 3, well developed and well nourished, normocephalic and atraumatic, lying in bed and in no acute distress. HEENT--PERRL, EOMI, mucous membranes and oropharynx mildly dry Neck--supple. No JVD. No bruits. Thyroid normal, trachea midline, no adenopathy. Heart--normal S1 and S2. No murmurs, rubs or gallops. Lungs--clear bilaterally, no respiratory distress, no accessory muscle use. Abdomen--normal bowel sounds and soft. right-sided flank pain Extremities--no cyanosis or clubbing. No edema. Dermatologic--normal skin turgor, normal color, no abnormal lymph nodes, no rash. Neurologic--cranial nerves II through XII grossly intact. Rheumatologic--normal range of motion. Psychiatric--normal affect. Discharge Data Allergies Allergy/AdvReac Type Severity Reaction Status Date / Time No Known Allergies Allergy Verified 04/22/23 11:26 Consultations 04/22/23 11:14 ED Decision to Admit Stat 04/22/23 11:56 Consult Urology Routine 04/23/23 09:51 Consult Pulmonology Routine 04/24/23 09:07 Consult Cardiology Routine 04/25/23 07:52 Consult Infectious Diseases Routine Ordered Studies 04/22/23 08:43 CT abd pelvis IV con only Stat 04/23/23 09:23 CT angio chest PE protocol Stat 04/24/23 07:00 CT abd pelvis IV con only DAILY Hospital Course (1) Cardiomyopathy: Acute cardio myopathy, possibly due to ischemia but most likely due to sepsis. 2D echo showed ejection from 35% which is new compared to her old echo. Cardiology on board, may pursue ischemic workup at some point. Continue medical management for now (2) Pyelonephritis: Suspected bilaterally on CT scan. Development of right renal phlegmon is evident on CT scan. Drainage procedure was suggested however, there is no drainable abscess on CT scan that was completed April 24.. Urology consultation and recommendations appreciated Infectious diseases recommend discontinuing ciprofloxacin and continue only ceftriaxone Also, upon discharge to transition to levofloxacin 750mg p.o. every 24 hours for [address] abdomen with IV contrast prior to stopping antibiotics. (3) Sepsis: Present on admission. She is now on Rocephin and ciprofloxacin. Known Klebsiella UTI associated with bilateral pyelonephritis and right renal phlegmon , Urine cultures also growing Alma, ID on consult ID recommends discontinue ciprofloxacin and continue only Rocephin Upon discharge, will transition to levofloxacin 750 mg daily for 3 weeks (4) Acute respiratory failure with hypoxia: Resolved with diuresis. She is now on room air (5) Acute systolic CHF (congestive heart failure): Cardiac echo surprisingly revealed ejection fraction of 35% with regional wall motion abnormalities. She has no previous cardiac history however. Cardiology consultation requested and pending (6) UTI due to Klebsiella species: Continue Rocephin and ciprofloxacin (7) Sinus tachycardia: Started on metoprolol by cardiology Continue. (8) Hypokalemia: Parenteral replacement has been switched to oral replacement. Serial labs (9) History of seizure: Stable. Continue Keppra (10) Essential hypertension: Lisinopril was held on admission and will be restarted with known ejection fraction of 35%. (11) ARDS (adult respiratory distress syndrome): Fortunately ruled out Plan Hopefully discharge in next 24 to 48 hours Total Time Total Time Spent Total Time Spent (In Minutes): 35 minutes Discharge Plan Discharge Items Patient Disposition: Home - Self-Care Reason For Visit: SEPSIS, BL PYLENONEPHRITIS, HYPOKALEMIA Discharge Diagnosis: Bilateral pyelonephritis, right renal abscess, acute systolic CHF, transient acute hypoxic respiratory failure, hypokalemia, Klebsiella UTI Activity: Resume your previous activity Non-emergency contact: Primary Care Provider and Small Piece Cutter Call non-emergency contact if: your symptoms worsen Follow-up/Referrals: Caprice Clayton MD [Primary Care Provider] - Diet: Regular and Heart Healthy Addtl Attending Provider Instructions: Take levofloxacin 750mg daily for at least a 3 week course from 04/22, and plan for a repeat CT A/P with IV contrast prior to stopping the antibiotics. If a renal abscess persists, would extend the levofloxacin course. If the abscess remains sizeable on repeat imaging, would re-evaluate need for percutaneous drainage at that time. If as an outpatient, you have difficulty tolerating the oral levofloxacin, could consider switching to TMP/SMX 2 DS tabs PO q12h instead. Please ask your PCP to also order 2D echo 1 month from today Pending Studies at Discharge: No Stand-Alone Forms: My [facility], Smoking Cessation Medications and DC Order Prescriptions: New potassium chloride 20 mEq Tablet,Er Particles/Crystals 20 meq PO BID Qty: 0 0RF magnesium oxide 400 mg (241.3 mg magnesium) Tablet 400 mg PO BID Qty: 0 0RF lisinopril 10 mg Tablet 10 mg PO QAM Qty: 0 0RF enoxaparin [Lovenox] 40 mg/0.4 mL Syringe 40 mg subcut Q24H Qty: 0 0RF ondansetron HCl (PF) 4 mg/2 mL Solution 4 mg IV Q4H PRNQty: 0 0RF morphine 4 mg/mL Syringe 2 mg IV Q4H PRNQty: 0 0RF metoprolol tartrate 50 mg Tablet 50 mg PO BID 30 Days Qty: 60 0RF levofloxacin 750 mg tablet 750 mg PO DAILY 21 Days Qty: 21 0RF Continued levetiracetam [Keppra] 500 mg tablet 500 mg PO BID Qty: 180 1RF buspirone 7.5 mg tablet 7.5 mg PO TID Qty: 270 3RF lorazepam 0.5 mg tablet 0.25 - 0.5 mg PO DAILY PRN (Reason: Anxiety) Qty: 30 0RF Rx Instructions: Supervising Caprice Clayton MD NPI [id number] fluoxetine 40 mg capsule 40 mg PO HS Qty: 90 3RF hydrocortisone 2.5 % cream with perineal applicator 1 applic TN BID 14 Days Qty: 30 0RF flaxseed oil 1,000 mg capsule 1,000 mg PO QAM sennosides-docusate sodium 8.6-50 mg tablet 1 tab PO QPM pravastatin 20 mg tablet 20 mg PO QAM Qty: 90 3RF semaglutide (weight loss) 0.25 mg/0.5 mL pen injector 0.25 - 0.5 mg subcut Q7D Qty: 2 3RF Rx Instructions: PER PT "HAVEN'T HAD FOR 3-4 WKS, BACK ORDERED" Inject 0.25mg weekly for weeks 1-4, then 0.5mg weekly thereafter nitrofurantoin monohyd/m-cryst 100 mg capsule 100 mg PO Q12H 5 Days Qty: 10 0RF Rx Instructions: STARTED 04/19/23 FOR 5 DAYS. must administer with a meal/food omega [id number]-fish oil [Fish Oil] 1,000 mg (120 mg-180 mg) Capsule 1 cap PO QAM dicyclomine 20 mg tablet 20 mg PO BID PRN (Reason: ABD PAIN) Rx Instructions: TAKE 1 TABLET BY MOUTH TWICE DAILY NEEDED FOR ABDOMINAL PAIN pantoprazole 40 mg tablet,delayed release (DR/EC) 40 mg PO BID Rx Instructions: TAKE 30 MINUTES BEFORE BREAKFAST AND DINNER. ondansetron HCl 4 mg tablet 4 mg PO TID PRN (Reason: nausea and vomiting) 5 Days Qty: 15 0RF Discontinued lisinopril 5 mg tablet See Rx Instructions .ROUTE .COMPLEX Rx Instructions: TAKES 10 MG QAM, THEN 5 MG QPM. Discharge Orders: Discharge Order (Routine); Ordered 04/27/23 Ordered By: iJmenez Rodriguez Admission Data Admit Date/Time: 04/22/23 11:35 Attending Provider: Jimenez Rodriguez Admit Provider: Magnus Hanson Primary Care Provider: Caprice Clayton Other Providers: Karthik Collier; Ollie Juarez; Shayan Farias; Adam Swanson; Brenton Lee; Luis Sommer; Pia Buckley; Sonia Jauregui; Gab Navarro; Ricki Nelson; Tequila Schmitt; Bakari Torres; Deon Castellano; Ritchie Curiel; Delio Nguyen; Segundo Mejia; North Quiroz Jr; Russ Stack; Dania Buchanan; Kasandra Carmona; Ryan Pitt; Ryan Barnes; Darryl Orozco; Nancy Avendano; Kiarra Rudd; Dejon Brown; Cameron Davenport; Max Rivero; Carla Styles; Phyllis Cano; Klever Posada; Sophia Danielle; Arlen Gamble; Candi Perez; Mercedes Campbell; Ernestina Dalton Coding Level of Care Code 66136 INP/OBS DISCH >30 MIN Diagnoses Cardiomyopathy, unspecified type I42.9 Cardiomyopathy type: unspecified Pyelonephritis N12 Sepsis A41.9 Acute respiratory failure with hypoxia J96.01 Acute systolic CHF (congestive heart failure) I50.21 UTI due to Klebsiella species N39.0; B96.89 Sinus tachycardia R00.0 Hypokalemia E87.6 History of seizure Z87.898 Essential hypertension I10 ARDS (adult respiratory distress syndrome) J80 Time Spent (min) 35
--- NOTE | 2023-04-27 11:33 | XCELERA ---
[id number] \\[id number]
[2023-04-27] MEDS: ENOXAPARIN INJ 40 MG/0.4 ML SYR SQ SCH (12:42)
[2023-04-28 05:57] LABS: Abnormal Protein Band 1 DNR mg/24 h (NONE DETECTED); Abnormal Protein Band 2 DNR mg/24 h (NONE DETECTED); Abnormal Protein Band 3 DNR mg/24 h (NONE DETECTED); Creatinine, 24 hr Urine 1.06 g/24 h (0.50-2.15); Protein, Urine 24 Hour 234 mg/24 h (<150); Ur Protein/Creatinine Rat mg/g 220 mg/g creat (<150)
[2023-04-28 13:47] LABS: Albumin 2.6 g/dL (3.8-4.8); Alpha 1 Globulin 0.6 g/dL (0.2-0.3); Beta-1-Globulin 0.3 g/dL (0.4-0.6); Beta-2-Globulin 0.3 g/dL (0.2-0.5); Gamma Globulin 0.7 g/dL (0.8-1.7); Monoclonal Protein Band 1 DNR g/dL (NONE DETECTED); Monoclonal Protein Band 2 DNR g/dL (NONE DETECTED); Monoclonal Protein Band 3 DNR g/dL (NONE DETECTED); Total Protein 5.5 g/dL (6.1-8.1)
== END 2023-04-27 17:30 | disposition home or self-care (01) | DRG 871 ==
LOC: ED 08:14 → SUATTDRO 11:35 → EDINP 11:35 → 2S 14:32
DX: Z79.85 Long-term (current) use of injectable non-insulin antidiabetic drugs; Z79.899 Other long term (current) drug therapy; N10 Acute pyelonephritis; R79.89 Other specified abnormal findings of blood chemistry; B37.49 Other urogenital candidiasis; K50.90 Crohn's disease, unspecified, without complications; I42.9 Cardiomyopathy, unspecified; J80 Acute respiratory distress syndrome; Z87.442 Personal history of urinary calculi; E87.6 Hypokalemia; Z90.49 Acquired absence of other specified parts of digestive tract; G40.909 Epilepsy, unspecified, not intractable, without status epilepticus; R00.0 Tachycardia, unspecified; I11.0 Hypertensive heart disease with heart failure; A41.59 Other Gram-negative sepsis; N15.1 Renal and perinephric abscess; I50.21 Acute systolic (congestive) heart failure; N20.0 Calculus of kidney; B96.1 Klebsiella pneumoniae [K. pneumoniae] as the cause of diseases classified elsewhere